=== PATIENT | female | born 1940 | race Caucasian/White ===

== ENCOUNTER 2022-02-05 16:00 | Emergency (ER) | payer OTHER ==
--- NOTE | 2022-02-05 17:11 | ER ---
Nurse's Notes [facility] Name: Kasia Auguste Age: 82 yrs Sex: Female : 1940 Arrival Date: 02/05/2022 Time: 16:09 Bed 12 Private MD: Diagnosis: Cat Bite Presentation: 02/05 16:19 Chief complaint: Patient states: I was bit on my first right toe. It happened jb4 yesterday. Coronavirus screen: At this time, the client does not indicate any symptoms associated with coronavirus-19. Ebola Screen: No symptoms or risks identified at this time. Initial Sepsis Screen: Does the patient meet any 2 criteria? No. Patient's initial sepsis screen is negative. Does the patient have a suspected source of infection? Yes: Skin breakdown/wound. Risk Assessment: Do you want to hurt yourself or someone else? Patient reports no desire to harm self or others. Onset of symptoms was February 04, 2022. Transition of care: patient was not received from another setting of care. 16:19 Method Of Arrival: Ambulatory jb4 16:19 Acuity: DARRICK 4 jb4 Triage Assessment: 16:22 Bite description: bite sustained to plantar aspect of left first toe and Left first jb4 toenail by a cat, animal information: vaccination(s) is current. Historical: - Allergies: 16:22 TETRACYCLINES; jb4 16:22 KAELA INHIBITORS; jb4 16:22 Bactrim; jb4 16:22 Augmentin; jb4 16:22 POTASSIUM CHLORIDE; jb4 - PMHx: 16:22 CVA; HTN; asthma; glaucoma; Arthritis; hiatal hernia; Osteoporosis; jb4 - PSHx: 16:22 sigmoid colon removed; jb4 - Immunization history:: Adult Immunizations up to date. - Social history:: Smoking status: Patient denies any tobacco usage or history of. Screenin:00 Abuse screen: Denies threats or abuse. Denies injuries from another. Nutritional iw screening: No deficits noted. Tuberculosis screening: No symptoms or risk factors identified. Fall Risk None identified. Assessment: 17:00 Reassessment: Patient appears in no apparent distress at this time. No changes from iw previously documented assessment. Patient and/or family updated on plan of care and expected duration. Pain level reassessed. Patient is alert, oriented x 3, equal unlabored respirations, skin warm/dry/pink. Vital Signs: 16:19 BP 148 / 85; Pulse 89; Resp 16; Temp 98.2(O); Pulse Ox 100% on R/A; Weight 59.87 kg jb4 (R); Height 5 ft. 3 in. (160.02 cm) (R); Pain 0/10; 16:19 Body Mass Index 23.38 (59.87 kg, 160.02 cm) jb4 ED Course: 16:09 Patient arrived in ED. ds1 16:19 Luis Ramírez PA is PHCP. iris 16:19 Vish Nunez MD is Attending Physician. [facility] 16:22 Triage completed. jb4 16:22 Arm band placed on right wrist. jb4 17:00 Leonora Turk, RN is Primary Nurse. iw Administered Medications: No medications were administered Outcome: 17:10 Discharge ordered by . jmm 17:15 Patient left the ED. iw Signatures: Luis Ramírez PA PA [facility] Lorrie Mann ds1 Leonora Turk, RN RN iw Shalom Irwin, DILAN RN jb4 Corrections: (The following items were deleted from the chart) 16:25 16:22 Allergies: No Known Allergies; jb4 jb4
--- NOTE | 2022-02-05 17:11 | EDPHYS ---
Physician Documentation [facility] Name: Kasia Auguste Age: 82 yrs Sex: Female : 1940 Arrival Date: 02/05/2022 Time: 16:09 Bed 12 Private MD: ED Physician Vish Nunez HPI: 02/05 16:34 This 82 yrs old Female presents to ER via Ambulatory with complaints of Cat Bite. [facility] 16:34 Onset: The symptoms/episode began/occurred acutely, 1 day(s) ago. Animal information: [facility] Animal's vaccinations are up to date. Patient states she was bit on her right foot by her cat. This has occurred multiple times. Denies fever. States she has been prescribed cipro in the past which has helped. . Historical: - Allergies: 16:22 TETRACYCLINES; jb4 16:22 KAELA INHIBITORS; jb4 16:22 Bactrim; jb4 16:22 Augmentin; jb4 16:22 POTASSIUM CHLORIDE; jb4 - PMHx: 16:22 CVA; HTN; asthma; glaucoma; Arthritis; hiatal hernia; Osteoporosis; jb4 - PSHx: 16:22 sigmoid colon removed; jb4 - Immunization history:: Adult Immunizations up to date. - Social history:: Smoking status: Patient denies any tobacco usage or history of. ROS: 16:34 Constitutional: Negative for fever, chills, and weight loss, Cardiovascular: Negative jmm for chest pain, palpitations, and edema, Respiratory: Negative for shortness of breath, cough, wheezing, and pleuritic chest pain. 16:34 Skin: Positive for puncture. bite. 16:34 All other systems are negative. Exam: 16:34 Constitutional: This is a well developed, well nourished patient who is awake, alert, jmm and in no acute distress. Head/Face: atraumatic. Eyes: EOMI, no conjunctival erythema appreciated ENT: Moist Mucus Membranes Neck: Trachea midline, Supple Chest/axilla: Normal chest wall appearance and motion. Cardiovascular: Regular rate and rhythm. No edema appreciated Respiratory: Normal respirations, no respiratory distress appreciated Abdomen/GI: Non distended, soft Back: Normal ROM 16:34 Skin: puncture noted to the right foot, no surrounding erythema or induration, no purulent drainage, . 16:34 Neuro: Orientation: is normal, Mentation: is normal, Memory: is normal. 16:34 Psych: Behavior/mood is pleasant, cooperative. Vital Signs: 16:19 BP 148 / 85; Pulse 89; Resp 16; Temp 98.2(O); Pulse Ox 100% on R/A; Weight 59.87 kg jb4 (R); Height 5 ft. 3 in. (160.02 cm) (R); Pain 0/10; 16:19 Body Mass Index 23.38 (59.87 kg, 160.02 cm) jb4 MDM: 16:31 [facility] 16:34 Data reviewed: vital signs, nurses notes. Counseling: I had a detailed discussion with [facility] the patient and/or guardian regarding: the historical points, exam findings, and any diagnostic results supporting the discharge/admit diagnosis, the need for outpatient follow up, to return to the emergency department if symptoms worsen or persist or if there are any questions or concerns that arise at home. ED course: Patient is alert and non toxic in appearance in the ED. No signs of sepsis. patient prescribed abx and given strict return precautions. . Administered Medications: No medications were administered Disposition Summary: 02/05/22 17:10 Discharge Ordered Location: Home [facility] Condition: Stable [facility] Diagnosis - Cat Bite [facility] Followup: [facility] - With: Private Physician - When: 1 - 2 days - Reason: Recheck today's complaints, Continuance of care, Re-evaluation by your physician Discharge Instructions: - Discharge Summary Sheet [facility] - Animal Bite, Adult [facility] Forms: - Medication Reconciliation Form [facility] - Thank You Letter [facility] - Antibiotic Education [facility] - Prescription Opioid Use [facility] Prescriptions: - Cipro 500 mg Oral Tablet - take 1 tablet by ORAL route every 12 hours for 10 days; 20 tablet; Refills: 0, [facility] Product Selection Permitted Signatures: Vish Nunez MD MD cha Mickail, Joel, PA PA jmm Bryson, James, RN RN jb4 Corrections: (The following items were deleted from the chart) 16:25 16:22 Allergies: No Known Allergies; jb4 jb4
[2022-02-05 17:20] VITALS: BP 148/85; TEMP 98.2; O2SAT 100
== END 2022-02-05 17:15 | disposition home or self-care (01) ==
LOC: ER 16:00
DX: S91.331A Puncture wound without foreign body, right foot, initial encounter (principal); W55.01XA Bitten by cat, initial encounter; I10 Essential (primary) hypertension; Z88.1 Allergy status to other antibiotic agents; Z88.3 Allergy status to other anti-infective agents; Z88.8 Allergy status to other drugs, medicaments and biological substances; Z86.73 Personal history of transient ischemic attack (TIA), and cerebral infarction without residual deficits
CPT/HCPCS: 99281

== ENCOUNTER 2022-02-07 20:34 | Emergency (ER) | payer OTHER ==
[2022-02-07] MEDS ORDERED: ONDANSETRON 4 MG/2 ML VIAL ONE (23:17)
[2022-02-07] MEDS ORDERED: METHYLPREDNISOLONE 40 MG INJ ONE (23:17)
[2022-02-07] MEDS ORDERED: MORPHINE 4 MG/ML SYR ONE (23:17)
--- NOTE | 2022-02-08 00:15 | EDPHYS ---
Physician Documentation [facility] Name: Kasia Auguste Age: 82 yrs Sex: Female : 1940 Arrival Date: 02/07/2022 Time: 20:38 Bed 7 Private MD: Tadeo Means C ED Physician Costa Knowles HPI: 02/07 21:58 This 82 yrs old Female presents to ER via Wheelchair with complaints of Back Pain. kdr 21:58 The patient presents with pain that is acute, that is chronic, and tenderness. The kdr symptoms are located in the left scapular area and thoracic area. Onset: The symptoms/episode began/occurred gradually, 3 week(s) ago. The pain does not radiate. Associated signs and symptoms: The patient has no apparent associated signs or symptoms. The problem was sustained from unknown cause. Modifying factors: The patient symptoms are alleviated by nothing, the patient symptoms are aggravated by any movement. Severity of symptoms: At their worst the symptoms were mild. The patient has experienced a previous episode. The patient has not recently seen a physician. Historical: - Allergies: 21:03 KAELA INHIBITORS; lg3 21:03 Augmentin; lg3 21:03 Bactrim; lg3 21:03 Potassium Chloride; lg3 21:03 TETRACYCLINES; lg3 - Home Meds: 21:03 Norvasc 10 mg oral tab once daily [Active]; Cozaar 100 mg Oral tab once daily [Active]; lg3 hydrochlorothiazide 12.5 mg Oral cap once daily [Active]; aspirin 81 mg Oral chew once daily [Active]; Crestor 20 mg oral tab 1 tab once daily [Active]; Plavix 75 mg Oral tab 1 tab once daily [Active]; Advair Diskus 250-50 mcg/dose Inhl dsdv 1 puff 2 times per day [Active]; proair 90 Mcg 2 puffs as needed [Active]; azelastine .15% 205.5 mcg twice a day [Active]; loratadine 10 mg oral tab 1 tab once daily [Active]; rabeprazole 20 mg oral TbEC 1 tab once daily [Active]; prolia 1 injection every 6 months [Active]; brinzolamide opth drops [Active]; Tirosint 25 mcg oral cap 1 cap once daily [Active]; tizanidine 4 mg oral cap 1 cap daily [Active]; escitalopram oxalate 10 mg oral tab 1 tab once daily [Active]; folic acid 1 mg Oral tab [Active]; hydroxyzine HCl 25 mg Oral tab as needed [Active]; - PMHx: 21:03 Arthritis; Asthma; CVA; Glaucoma; hiatal hernia; HTN; Osteoporosis; lg3 - PSHx: 21:03 sigmoid colon removed; hysterectomy; Cholecystectomy; Appendectomy; lg3 - Immunization history:: Adult Immunizations up to date, Client reports receiving the 2nd dose of the Covid vaccine, moderna X3. - Social history:: Smoking status: Patient denies any tobacco usage or history of. Patient/guardian denies using alcohol. ROS: 21:58 Constitutional: Negative for fever, chills, and weight loss, Eyes: Negative for injury, kdr pain, redness, and discharge, Neck: Negative for injury, pain, and swelling, Cardiovascular: Negative for chest pain, palpitations, and edema, Respiratory: Negative for shortness of breath, cough, wheezing, and pleuritic chest pain, Abdomen/GI: Negative for abdominal pain, nausea, vomiting, diarrhea, and constipation, : Negative for injury, bleeding, discharge, and swelling, MS/Extremity: Negative for injury and deformity, Skin: Negative for injury, rash, and discoloration, Neuro: Negative for headache, weakness, numbness, tingling, and seizure activity. Psych: Negative for depression, anxiety, suicide ideation, homicidal ideation, and hallucinations, Allergy/Immunology: Negative for hives, rash, and allergies, Endocrine: Negative for neck swelling, polydipsia, polyuria, polyphagia, and marked weight changes, Hematologic/Lymphatic: Negative for swollen nodes, abnormal bleeding, and unusual bruising. 21:58 Back: Positive for pain at rest, pain with movement. Exam: 21:58 Constitutional: This is a well developed, well nourished patient who is awake, alert, kdr and in no acute distress. Head/Face: Normocephalic, atraumatic. Neck: Trachea midline, no thyromegaly or masses palpated, and no cervical lymphadenopathy. Supple, full range of motion without nuchal rigidity, or vertebral point tenderness. No Meningismus. Chest/axilla: Normal chest wall appearance and motion. Nontender with no deformity. No lesions are appreciated. Cardiovascular: Regular rate and rhythm with a normal S1 and S2. No gallops, murmurs, or rubs. Normal PMI, no JVD. No pulse deficits. Respiratory: Lungs have equal breath sounds bilaterally, clear to auscultation and percussion. No rales, rhonchi or wheezes noted. No increased work of breathing, no retractions or nasal flaring. Abdomen/GI: Soft, non-tender, with normal bowel sounds. No distension or tympany. No guarding or rebound. No evidence of tenderness throughout. Skin: Warm, dry with normal turgor. Normal color with no rashes, no lesions, and no evidence of cellulitis. MS/ Extremity: Pulses equal, no cyanosis. Neurovascular intact. Full, normal range of motion. Neuro: Awake and alert, GCS 15, oriented to person, place, time, and situation. Cranial nerves II-XII grossly intact. Motor strength 5/5 in all extremities. Sensory grossly intact. Cerebellar exam normal. Normal gait. Psych: Awake, alert, with orientation to person, place and time. Behavior, mood, and affect are within normal limits. 21:58 Back: pain, that is very mild, of the left scapular area, left subscapular area and thoracic area, ROM is painful, with all movement, normal spinal alignment noted, CVA tenderness, is absent, vertebral tenderness, is not appreciated. Vital Signs: 21:01 BP 154 / 79; Pulse 92; Resp 17 S; Temp 97.7(O); Pulse Ox 99% on R/A; Weight 59.87 kg lg3 (R); Height 5 ft. 3 in. (160.02 cm) (R); Pain 10/10; 23:20 BP 142 / 77; Pulse 86; Resp 16; Pulse Ox 95% on R/A; Pain 8/10; lp1 02/08 00:00 BP 104 / 58; Pulse 86; Resp 16; Pulse Ox 95% on R/A; lp1 00:50 BP 128 / 75; Pulse 88; Resp 18; Pulse Ox 95% on R/A; Pain 3/10; lp1 02/07 21:01 Body Mass Index 23.38 (59.87 kg, 160.02 cm) lg3 MDM: 02/07 21:58 Data reviewed: vital signs, nurses notes, lab test result(s), radiologic studies. kdr Counseling: I had a detailed discussion with the patient and/or guardian regarding: the historical points, exam findings, and any diagnostic results supporting the discharge/admit diagnosis, lab results, radiology results. 02/08 00:14 Patient medically screened. kdr 02/07 21:56 Order name: CT Thoracic Spine Wo Cont vc1 Administered Medications: 02/07 23:25 Drug: morphine 4 mg Route: IVP; Site: right hand; lp1 02/08 00:30 Follow up: Response: Pain is decreased lp1 02/07 23:25 Drug: Zofran (Ondansetron) 4 mg Route: IVP; Site: right hand; lp1 02/08 00:35 Follow up: Response: No adverse reaction lp1 02/07 23:25 Drug: SOLU-Medrol (methylPrednisoLONE) 80 mg Route: IVP; Site: right hand; lp1 02/08 00:35 Follow up: Response: No adverse reaction lp1 00:50 Drug: [place] (HYDROcodone-acetaminophen) 5 mg-325 mg 1 tabs Route: PO; lp1 01:06 Follow up: Response: Medication administered at discharge. lp1 Disposition Summary: 02/08/22 00:14 Discharge Ordered Location: Home kdr Problem: new kdr Symptoms: have improved kdr Condition: Stable kdr Diagnosis - Upper (Throacic) Back Pain kdr - Degenerative Spine Changes kdr Followup: kdr - With: Tadeo Means MD - When: 1 - 2 days - Reason: If symptoms return, Further diagnostic work-up, Recheck today's complaints, Continuance of care, Re-evaluation by your physician Discharge Instructions: - Discharge Summary Sheet kdr - Acute Back Pain, Adult kdr Forms: - Medication Reconciliation Form kdr - Thank You Letter kdr Prescriptions: - Prednisone 20 mg Oral Tablet - take 1 tablet by ORAL route once daily for 3 days; 3 tablet; Refills: 0, kdr Product Selection Permitted - Cyclobenzaprine 5 mg Oral Tablet - take 1 tablet by ORAL route 3 times per day As needed; 9 tablet; Refills: 0, kdr Product Selection Permitted - Zofran 4 mg Oral Tablet - take 1 tablet by ORAL route every 4-6 hours As needed; 12 tablet; Refills: 0, kdr Product Selection Permitted Signatures: Dispatcher [employer] Costa Chauhan MD MD kdr Saritha Melendez, RN RN lp1 Sally Almazan, DILAN RN lg3
--- NOTE | 2022-02-08 00:15 | ER ---
Nurse's Notes [facility] Name: Kasia Auguste Age: 82 yrs Sex: Female : 1940 Arrival Date: 02/07/2022 Time: 20:38 Bed 7 Private MD: Tadeo Means C Diagnosis: Upper (Throacic) Back Pain;Degenerative Spine Changes Presentation: 02/07 21:01 Chief complaint: Patient states: left sided back and shoulder pain. I was moving a box lg3 last week and that is when the pain started and gradually getting worse. Coronavirus screen: Client denies travel out of the [place] in the last 14 days. At this time, the client does not indicate any symptoms associated with coronavirus-19. Ebola Screen: No symptoms or risks identified at this time. Initial Sepsis Screen: Does the patient meet any 2 criteria? No. Patient's initial sepsis screen is negative. Does the patient have a suspected source of infection? No. Patient's initial sepsis screen is negative. Risk Assessment: Do you want to hurt yourself or someone else? Patient reports no desire to harm self or others. Onset of symptoms is unknown. 21:01 Method Of Arrival: Wheelchair lg3 21:01 Acuity: DARRICK 3 lg3 Triage Assessment: 21:03 General: Appears in no apparent distress. uncomfortable, Behavior is calm, cooperative. lg3 Pain: Complains of pain in back and left shoulder. EENT: No deficits noted. No signs and/or symptoms were reported regarding the EENT system. Neuro: No deficits noted. Level of Consciousness is awake, alert, obeys commands, Oriented to person, place, time, situation. Cardiovascular: No deficits noted. Denies chest pain, shortness of breath. Respiratory: No deficits noted. Airway is patent Trachea midline Respiratory effort is even, unlabored, Respiratory pattern is regular, symmetrical. GI: No deficits noted. No signs and/or symptoms were reported involving the gastrointestinal system. : No deficits noted. No signs and/or symptoms were reported regarding the genitourinary system. Derm: No deficits noted. No signs and/or symptoms reported regarding the dermatologic system. Skin is intact, is thin, Skin is dry. Musculoskeletal: Range of motion: limited in left shoulder. Historical: - Allergies: 21:03 KAELA INHIBITORS; lg3 21:03 Augmentin; lg3 21:03 Bactrim; lg3 21:03 Potassium Chloride; lg3 21:03 TETRACYCLINES; lg3 - Home Meds: 21:03 Norvasc 10 mg oral tab once daily [Active]; Cozaar 100 mg Oral tab once daily [Active]; lg3 hydrochlorothiazide 12.5 mg Oral cap once daily [Active]; aspirin 81 mg Oral chew once daily [Active]; Crestor 20 mg oral tab 1 tab once daily [Active]; Plavix 75 mg Oral tab 1 tab once daily [Active]; Advair Diskus 250-50 mcg/dose Inhl dsdv 1 puff 2 times per day [Active]; proair 90 Mcg 2 puffs as needed [Active]; azelastine .15% 205.5 mcg twice a day [Active]; loratadine 10 mg oral tab 1 tab once daily [Active]; rabeprazole 20 mg oral TbEC 1 tab once daily [Active]; prolia 1 injection every 6 months [Active]; brinzolamide opth drops [Active]; Tirosint 25 mcg oral cap 1 cap once daily [Active]; tizanidine 4 mg oral cap 1 cap daily [Active]; escitalopram oxalate 10 mg oral tab 1 tab once daily [Active]; folic acid 1 mg Oral tab [Active]; hydroxyzine HCl 25 mg Oral tab as needed [Active]; - PMHx: 21:03 Arthritis; Asthma; CVA; Glaucoma; hiatal hernia; HTN; Osteoporosis; lg3 - PSHx: 21:03 sigmoid colon removed; hysterectomy; Cholecystectomy; Appendectomy; lg3 - Immunization history:: Adult Immunizations up to date, Client reports receiving the 2nd dose of the Covid vaccine, moderna X3. - Social history:: Smoking status: Patient denies any tobacco usage or history of. Patient/guardian denies using alcohol. Screenin:36 Abuse screen: Denies threats or abuse. Nutritional screening: No deficits noted. ll3 Tuberculosis screening: No symptoms or risk factors identified. 02/08 00:30 Fall Risk Total Sparks Fall Scale indicates High Risk Score (45 or more points). Fall lp1 prevention measures have been instituted. Side Rails Up X 2 As available patient and family educated on Fall Prevention Program and Strategies. Assessment: 02/07 21:36 General: Appears uncomfortable, Behavior is calm, cooperative. Pain: Complains of pain ll3 in left shoulder Pain does not radiate. Pain currently is 10 out of 10 on a pain scale. Pain began 2-3 days ago. Is continuous, Alleviated by repositioning, Aggravated by repositioning, Taking a deep breath. Neuro: Level of Consciousness is awake, alert, obeys commands, Oriented to person, place, time, situation. Cardiovascular: Clubbing of nail beds. Respiratory: Respiratory effort is even, unlabored, Respiratory pattern is regular, symmetrical. Derm: Skin is pink, warm \T\ dry. Musculoskeletal: Circulation, motion, and sensation intact. 23:00 Reassessment: No changes from previously documented assessment. Patient and/or family ll3 updated on plan of care and expected duration. Pain level reassessed. Patient is alert, oriented x 3, equal unlabored respirations, skin warm/dry/pink. Pain is 10/10, ERP notified. 02/08 00:30 Reassessment: Patient reports pain decreased to left posterior back, reports pain lp1 provoked with movement; Appears comfortable at this time, daughter at bedside. Vital Signs: 02/07 21:01 BP 154 / 79; Pulse 92; Resp 17 S; Temp 97.7(O); Pulse Ox 99% on R/A; Weight 59.87 kg lg3 (R); Height 5 ft. 3 in. (160.02 cm) (R); Pain 10/10; 23:20 BP 142 / 77; Pulse 86; Resp 16; Pulse Ox 95% on R/A; Pain 8/10; lp1 02/08 00:00 BP 104 / 58; Pulse 86; Resp 16; Pulse Ox 95% on R/A; lp1 00:50 BP 128 / 75; Pulse 88; Resp 18; Pulse Ox 95% on R/A; Pain 3/10; lp1 02/07 21:01 Body Mass Index 23.38 (59.87 kg, 160.02 cm) lg3 ED Course: 02/07 20:38 Patient arrived in ED. mr 20:38 Tadeo Means MD is Private Physician. mr 21:03 Triage completed. lg3 21:03 Arm band placed on right wrist. lg3 21:17 Costa Knowles MD is Attending Physician. kdr 21:36 Patient has correct armband on for positive identification. Bed in low position. Call ll3 light in reach. Side rails up X 1. 22:37 CT Thoracic Spine Wo Cont In Process Unspecified. EDMS 23:25 Inserted saline lock: 22 gauge in right hand, using aseptic technique. lp1 02/08 00:13 Tadeo Means MD is Referral Physician. kdr 00:36 Nury Chang, DILAN is Primary Nurse. ll3 00:55 No provider procedures requiring assistance completed. IV discontinued, No lp1 redness/swelling at site. Pressure dressing applied. Administered Medications: 02/07 23:25 Drug: morphine 4 mg Route: IVP; Site: right hand; lp1 02/08 00:30 Follow up: Response: Pain is decreased lp1 02/07 23:25 Drug: Zofran (Ondansetron) 4 mg Route: IVP; Site: right hand; lp1 02/08 00:35 Follow up: Response: No adverse reaction lp1 02/07 23:25 Drug: SOLU-Medrol (methylPrednisoLONE) 80 mg Route: IVP; Site: right hand; lp1 02/08 00:35 Follow up: Response: No adverse reaction lp1 00:50 Drug: [place] (HYDROcodone-acetaminophen) 5 mg-325 mg 1 tabs Route: PO; lp1 01:06 Follow up: Response: Medication administered at discharge. lp1 Outcome: 00:14 Discharge ordered by . kdr 01:07 Discharged to home via wheelchair, with family. lp1 01:07 Condition: good 01:07 Discharge instructions given to patient, Instructed on discharge instructions, follow up and referral plans. medication usage, Demonstrated understanding of instructions, follow-up care, medications, Prescriptions given X 3. 01:07 Patient left the ED. lp1 Signatures: Dispatcher [employer] EDMS Costa Knowles MD MD kdr RestrepoCallie mr Saritha Melendez RN RN lp1 Sally Almazan RN RN lg3 Nury Chang, DILAN RN ll3 Corrections: (The following items were deleted from the chart) 00:36 00:36 Reassessment: Patient and/or family updated on plan of care and expected ll3 duration. Pain level reassessed. Patient is alert, oriented x 3, equal unlabored respirations, skin warm/dry/pink. Patient states feeling better. ll3
[2022-02-08] MEDS ORDERED: HYDROCODONE/APAP 5/325 MG TAB ONE ×2 (00:29→00:42)
[2022-02-08 01:12] VITALS: TEMP 97.7
[2022-02-08 01:14] VITALS: O2SAT 95
[2022-02-08 01:17] VITALS: BP 128/75
--- NOTE | 2022-02-08 13:50 | RAD REPORT ---
EXAM DESCRIPTION: CT - Thoracic Spine W/o Cont - 02/08/2022 7:17 am CLINICAL HISTORY: Mid-back pain. TECHNIQUE: CT of the thoracic spine was performed without contrast. Axial 3 mm bone and soft tissue window, sagittal 2 mm bone and soft tissue window, and coronal 2 mm bone window reconstructions were created and sent to PACS. This exam was performed according to our departmental dose-optimization program which includes use of Automated Exposure Control, adjustment of the mA and/or kV according to patient size and/or use of i terative reconstruction technique. COMPARISON: None. FINDINGS: No acute osseous abnormality identified. There is moderate vertebral body height loss at L 1 with no acute features identified. There is mild bony retropulsion with no significant central missy l narrowing. Vertebral body alignment is maintained. No significant central canal or neuroforaminal n arrowing. Osteopenia. Small multilevel anterior osteophytes. Partial anterior disc calcification at T 8-9. Mild vacuum disc phenomenon anteriorly at T7-8 Paraspinal soft tissues: Mild pulmonary biapical fibrosis. Partially calcified nodule at the right ap ex. Moderate calcific atherosclerosis. IMPRESSION: 1. No acute osseous abnormality identified in the thoracic spine. Mild degenerative ch anges. 2. Chronic moderate compression fracture at L1. Mild bony retropulsion with no significant central canal narrowing. 3. Osteopenia. Electronically signed by: Tierra Rosado MD 02/07/2022 10:59 PM CDT Due to temporary technical issues with the PACS/Fluency reporting system, reports are being signed by the in house radiologists without review as a courtesy to insure prompt reporting. The interpreting radiologist is fully responsible for the content of the report
== END 2022-02-08 01:07 | disposition home or self-care (01) ==
LOC: ER 20:34
DX: M54.6 Pain in thoracic spine (principal); M47.894 Other spondylosis, thoracic region; Z88.1 Allergy status to other antibiotic agents; I10 Essential (primary) hypertension; J45.909 Unspecified asthma, uncomplicated; M81.0 Age-related osteoporosis without current pathological fracture
CPT/HCPCS: 72128; 96375; 96374; 99284; J2405; J2920

== ENCOUNTER 2022-08-02 13:40 | Emergency (ER) | payer OTHER ==
--- NOTE | 2022-08-02 14:40 | EDPHYS ---
Physician Documentation [facility] Name: Kasia Auguste Age: 82 yrs Sex: Female : 1940 Arrival Date: 08/02/2022 Time: 13:42 Bed 9 Private MD: ED Physician Audrey Leblanc HPI: 08/02 14:59 This 82 yrs old Female presents to ER via Ambulatory with complaints of Cat Bite. snw 14:59 The patient was bitten on the dorsal aspect of right forearm and left posterior calf. snw Onset: The symptoms/episode began/occurred suddenly, 1 day(s) ago, and became persistent. Animal information: The animal is known and can be quarantined. Secondary to the bite the patient reports a laceration, multiple puncture wounds. Associated signs and symptoms: The patient has no apparent associated signs or symptoms. Severity of symptoms: At their worst the symptoms were moderate. The patient has experienced a previous episode. It is unknown whether or not the patient has recently seen a physician. Historical: - Allergies: 14:23 KAELA INHIBITORS; vg1 14:23 Augmentin; vg1 14:23 Bactrim; vg1 14:23 TETRACYCLINES; vg1 14:23 Potassium Chloride; vg1 - Home Meds: 14:23 aspirin 81 mg Oral chew once daily [Active]; Plavix 75 mg Oral tab 1 tab once daily vg1 [Active]; Cozaar 100 mg Oral tab once daily [Active]; Crestor 20 mg Oral tab 1 tab once daily [Active]; proair 90 mcg 2 puffs as needed [Active]; hydroxyzine HCl 25 mg Oral tab as needed [Active]; folic acid 1 mg Oral tab [Active]; tizanidine 4 mg Oral cap 1 cap daily [Active]; Norvasc 10 mg Oral tab once daily [Active]; loratadine 10 mg Oral tab 1 tab once daily [Active]; escitalopram oxalate 10 mg Oral tab 1 tab once daily [Active]; - PMHx: 14:23 Arthritis; Asthma; CVA; Glaucoma; hiatal hernia; HTN; Osteoporosis; vg1 - Immunization history:: Client reports receiving the 2nd dose of the Covid vaccine. - Social history:: Smoking status: Patient denies any tobacco usage or history of. ROS: 14:55 Constitutional: Negative for fever, chills, and weight loss, Eyes: Negative for injury, snw pain, redness, and discharge, ENT: Negative for injury, pain, and discharge, Neck: Negative for injury, pain, and swelling, Cardiovascular: Negative for chest pain, palpitations, and edema, Respiratory: Negative for shortness of breath, cough, wheezing, and pleuritic chest pain, Abdomen/GI: Negative for abdominal pain, nausea, vomiting, diarrhea, and constipation, Back: Negative for injury and pain, : Negative for injury, bleeding, discharge, and swelling, MS/Extremity: Negative for injury and deformity, Neuro: Negative for headache, weakness, numbness, tingling, and seizure, Psych: Negative for depression, anxiety, suicide ideation, homicidal ideation, and hallucinations. 14:55 Skin: Positive for laceration(s), of the dorsal aspect of right forearm, from cat bite, also bitten on left posterior calf. Exam: 14:56 Constitutional: This is a well developed, well nourished patient who is awake, alert, snw and in no acute distress. Head/Face: Normocephalic, atraumatic. Eyes: Pupils equal round and reactive to light, extra-ocular motions intact. Lids and lashes normal. Conjunctiva and sclera are non-icteric and not injected. Cornea within normal limits. Periorbital areas with no swelling, redness, or edema. ENT: Nares patent. No nasal discharge, no septal abnormalities noted. Tympanic membranes are normal and external auditory canals are clear. Oropharynx with no redness, swelling, or masses, exudates, or evidence of obstruction, uvula midline. Mucous membranes moist. Neck: Trachea midline, no thyromegaly or masses palpated, and no cervical lymphadenopathy. Supple, full range of motion without nuchal rigidity, or vertebral point tenderness. No Meningismus. Chest/axilla: Normal chest wall appearance and motion. Nontender with no deformity. No lesions are appreciated. Cardiovascular: Regular rate and rhythm with a normal S1 and S2. No gallops, murmurs, or rubs. Normal PMI, no JVD. No pulse deficits. Respiratory: Lungs have equal breath sounds bilaterally, clear to auscultation and percussion. No rales, rhonchi or wheezes noted. No increased work of breathing, no retractions or nasal flaring. Abdomen/GI: Soft, non-tender, with normal bowel sounds. No distension or tympany. No guarding or rebound. No evidence of tenderness throughout. Back: No spinal tenderness. No costovertebral tenderness. Full range of motion. MS/ Extremity: Pulses equal, no cyanosis. Neurovascular intact. Full, normal range of motion. Neuro: Awake and alert, GCS 15, oriented to person, place, time, and situation. Cranial nerves II-XII grossly intact. Motor strength 5/5 in all extremities. Sensory grossly intact. Cerebellar exam normal. Normal gait. 14:56 Skin: Appearance: normal except for affected area, injury, bite(s), deep, of the dorsal aspect of right forearm, laceration(s), the wound is approximately 2 cm(s), with a depth of 1 cm(s), of the dorsal aspect of right forearm, that can be described as skin tear, puncture(s), that are deep, of the left posterior calf with 4 punctures from pt's cat. Vital Signs: 14:21 BP 151 / 80; Pulse 88; Resp 16; Temp 98.4(O); Pulse Ox 98% on R/A; Weight 59.42 kg; vg1 Height 5 ft. 3 in. (160.02 cm); Pain 0/10; 14:21 Body Mass Index 23.21 (59.42 kg, 160.02 cm) vg1 MDM: 14:33 Patient medically screened. snw 14:58 Data reviewed: vital signs, nurses notes. Data interpreted: Pulse oximetry: on room air snw is 98 %. Interpretation: normal. Counseling: I had a detailed discussion with the patient and/or guardian regarding: the historical points, exam findings, and any diagnostic results supporting the discharge/admit diagnosis, the presence of at least one elevated blood pressure reading (>120/80) during this emergency department visit, the need for outpatient follow up, to return to the emergency department if symptoms worsen or persist or if there are any questions or concerns that arise at home. Special discussion: I discussed in detail with the patient the higher chance of wound infection based on his presenting history. Based on the history and exam findings, there is no indication for further emergent testing or inpatient evaluation. I discussed with the patient/guardian the need to see the primary care provider for further evaluation of the symptoms. Administered Medications: 14:50 Drug: Hibiclens (chlorhexidine) Liquid 4 % 1 application Route: Topical; Site: affected vg1 area; 14:57 Drug: Tetanus-Diphtheria Toxoid Adult 0.5 ml {Vulcanizer Rubber Plate: [employer]Generator. Exp: vg1 03/05/2024. Lot #: [id number]. } Route: IM; Site: left deltoid; 14:58 Drug: Cipro (ciprofloxacin) 500 mg Route: PO; vg1 Disposition Summary: 08/02/22 14:40 Discharge Ordered Location: Home snw Condition: Stable snw Diagnosis - Bitten by cat snw Followup: snw - With: Emergency Department - When: As needed - Reason: Worsening of condition Followup: snw - With: Private Physician - When: 2 - 3 days - Reason: Recheck today's complaints, Continuance of care, Re-evaluation by your physician Discharge Instructions: - Discharge Summary Sheet snw - Delayed Wound Closure snw - Animal Bite, Adult snw Forms: - Medication Reconciliation Form snw - Thank You Letter snw - Antibiotic Education snw - Prescription Opioid Use snw Prescriptions: - Cipro 500 mg Oral Tablet - take 1 tablet by ORAL route every 12 hours for 7 days Catbite; 14 tablet; snw Refills: 0, Product Selection Permitted Addendum: 08/05/2022 03:28 STAFF ATTESTATION STATEMENT: I was immediately available onsite in the emergency s d2 department for consultation in the care of this patient. I did not see or examine this patient. Audrey Leblanc MD. Signatures: Oxana Sharp FNP-C FNP-Nolviaw Vanessa Leavitt RN RN vg1 Audrey Leblanc MD MD sd2
--- NOTE | 2022-08-02 14:40 | ER ---
Nurse's Notes [facility] Name: Kasia Auguste Age: 82 yrs Sex: Female : 1940 Arrival Date: 08/02/2022 Time: 13:42 Bed 9 Private MD: Diagnosis: Bitten by cat Presentation: 08/02 14:21 Chief complaint: Patient states: yesterday was bitten by own cat on Left calf and Right vg1 forearm. Coronavirus screen: Vaccine status: Patient reports receiving the 2nd dose of the covid vaccine. Client denies travel out of the [place] in the last 14 days. Ebola Screen: Patient negative for fever greater than or equal to 101.5 degrees Fahrenheit, and additional compatible Ebola Virus Disease symptoms Patient denies exposure to infectious person. Initial Sepsis Screen: Does the patient meet any 2 criteria? No. Patient's initial sepsis screen is negative. Does the patient have a suspected source of infection? No. Patient's initial sepsis screen is negative. Risk Assessment: Do you want to hurt yourself or someone else? Patient reports no desire to harm self or others. Onset of symptoms was August 01, 2022. 14:21 Method Of Arrival: Ambulatory vg1 14:21 Acuity: DARRICK 3 vg1 Triage Assessment: 14:23 Bite description: bite sustained to dorsal aspect of right forearm and Left calf by a vg1 cat, animal information: vaccination(s) is current, Animal status: known, own animal. General: Appears in no apparent distress. comfortable, Behavior is calm, cooperative. Pain: Denies pain. Derm: Bruising that is dark purple, on Right forearm and left calf. Historical: - Allergies: 14:23 KAELA INHIBITORS; vg1 14:23 Augmentin; vg1 14:23 Bactrim; vg1 14:23 TETRACYCLINES; vg1 14:23 Potassium Chloride; vg1 - Home Meds: 14:23 aspirin 81 mg Oral chew once daily [Active]; Plavix 75 mg Oral tab 1 tab once daily vg1 [Active]; Cozaar 100 mg Oral tab once daily [Active]; Crestor 20 mg Oral tab 1 tab once daily [Active]; proair 90 mcg 2 puffs as needed [Active]; hydroxyzine HCl 25 mg Oral tab as needed [Active]; folic acid 1 mg Oral tab [Active]; tizanidine 4 mg Oral cap 1 cap daily [Active]; Norvasc 10 mg Oral tab once daily [Active]; loratadine 10 mg Oral tab 1 tab once daily [Active]; escitalopram oxalate 10 mg Oral tab 1 tab once daily [Active]; - PMHx: 14:23 Arthritis; Asthma; CVA; Glaucoma; hiatal hernia; HTN; Osteoporosis; vg1 - Immunization history:: Client reports receiving the 2nd dose of the Covid vaccine. - Social history:: Smoking status: Patient denies any tobacco usage or history of. Screenin:03 Abuse screen: Denies threats or abuse. Nutritional screening: No deficits noted. vg1 Tuberculosis screening: No symptoms or risk factors identified. Fall Risk None identified. Assessment: 14:31 Reassessment: animal control contacted spoke with Nicole. vg1 15:18 Reassessment: Case # [id number]; Officer Venkata. vg1 Vital Signs: 14:21 BP 151 / 80; Pulse 88; Resp 16; Temp 98.4(O); Pulse Ox 98% on R/A; Weight 59.42 kg; vg1 Height 5 ft. 3 in. (160.02 cm); Pain 0/10; 14:21 Body Mass Index 23.21 (59.42 kg, 160.02 cm) vg1 ED Course: 13:42 Patient arrived in ED. as 14:14 [facility] snw 14:14 Audrey Leblanc MD is Attending Physician. snw 14:23 Triage completed. vg1 14:23 Arm band placed on right wrist. vg1 15:03 Patient has correct armband on for positive identification. Bed in low position. Call vg1 light in reach. 15:03 No provider procedures requiring assistance completed. Patient did not have IV access vg1 during this emergency room visit. Administered Medications: 14:50 Drug: Hibiclens (chlorhexidine) Liquid 4 % 1 application Route: Topical; Site: affected vg1 area; 14:57 Drug: Tetanus-Diphtheria Toxoid Adult 0.5 ml {Stitch Welder: [employer]. Exp: vg1 03/05/2024. Lot #: [id number]. } Route: IM; Site: left deltoid; 14:58 Drug: Cipro (ciprofloxacin) 500 mg Route: PO; vg1 Medication: 15:04 VIS not applicable for this client. Vaccine Information Statement (VIS) provided today. vg1 Questions and/or concerns addressed. VIS edition date: May 22, 2021. Outcome: 14:40 Discharge ordered by . michael 15:03 Discharged to home ambulatory. vg1 15:03 Condition: good 15:03 Discharge instructions given to patient, Instructed on discharge instructions, follow up and referral plans. medication usage, wound care, Demonstrated understanding of instructions, follow-up care, medications, wound care, Prescriptions given X 1. 15:04 Patient left the ED. vg1 Signatures: Oxana Sharp, LIGHTER CAPTAIN-C LIGHTER CAPTAIN-Csnw Gabriela Degroot Victoria, RN RN vg1
[2022-08-02] MEDS ORDERED: TETANUS & DIPHTHERIA TOX,ADULT 0.5 ML VIAL ONE (14:49)
[2022-08-02] MEDS ORDERED: CIPROFLOXACIN HCL 500 MG TAB ONE (14:49)
[2022-08-02 15:10] VITALS: BP 151/80; TEMP 98.4; O2SAT 98
== END 2022-08-02 15:04 | disposition home or self-care (01) ==
LOC: ER 13:40
DX: S51.851A Open bite of right forearm, initial encounter (principal); W55.01XA Bitten by cat, initial encounter; Y93.9 Activity, unspecified; Y92.019 Unspecified place in single-family (private) house as the place of occurrence of the external cause; Z23 Encounter for immunization
CPT/HCPCS: 90471; 90714; 99283

== ENCOUNTER 2022-09-03 12:13 | Inpatient (IN) | payer OTHER ==
[2022-09-03 14:20] LABS: SARS-COV-2 RT PCR NEGATIVE (NEGATIVE)
[2022-09-03] MEDS ORDERED: NA CHLORIDE 0.9% 1,000 ML ONE ×2 (15:38→18:58)
[2022-09-03 15:52] LABS: Absolute Lymphocytes (CBC) 0.6 K/uL (0.7-4.9); Hematocrit 36.4 % (36.0-45.0); Lymphocytes % 12.5 % (15.3-44.8); MPV 8.7 fL (7.6-11.3); RBC Red Blood Cell Count 4.18 M/uL (3.86-4.86)
[2022-09-03 16:24] LABS: Albumin 4.1 g/dL (3.4-5.0); Bilirubin Total 0.4 mg/dL (0.2-1.0); Protein, Total 8.1 g/dL (6.4-8.2)
[2022-09-03 16:27] LABS: Potassium 3.9 mmol/L (3.5-5.1)
[2022-09-03 16:52] LABS: Urine Blood Trace-intact (Negative); Urine Glucose Negative (Negative); Urine Protein Negative (Negative); Urine Specific Gravity 1.015 (1.005-1.030)
--- NOTE | 2022-09-03 17:14 | RAD REPORT ---
EXAM DESCRIPTION: CTAbdomen Pelvis W Contrast - 09/03/2022 4:54 pm CLINICAL HISTORY: Abdominal pain, acute, nonlocalized COMPARISON: No comparisons TECHNIQUE: CT of the abdomen and pelvis was performed. All CT scans are performed using dose optimization technique as appropriate and may include automated exposure control or mA/KV adjustment according to patient size. FINDINGS: Lower chest: Mitral annular calcifications. Coronary artery calcifications. Liver: Low-density lesion at the hepatic dome with coarse calcification is almost certainly benign. L ow-density lesion left hepatic lobe was also likely benign. Biliary: Cholecystectomy. Stomach: No significant focal abnormality. Duodenum: No significant focal abnormality. Pancreas: No significant abnormality. Spleen: No significant abnormality. Adrenal: No suspicious lesions. Kidney/ureter: No hydronephrosis. Nonobstructing 3 mm stone in lower pole left kidney. Retroperitoneum: No retroperitoneal adenopathy. Vascular: No aneurysm. Atherosclerosis. Bowel: Fluid distended small bowel in the central and left hemiabdomen. Smooth transition to nondiste nded distal small bowel. Small air-fluid levels noted. Small bowel measures up to 2.8 cm.. The colon is decompressed. Partial colectomy. Peritoneum: Small amount free fluid. Bladder: Grossly unremarkable. Reproductive: No adnexal masses. Bones: No acute fracture. Remote appearing L1 compression fracture . Other: n/a IMPRESSION: Nonspecific distended small bowel in the central and left hemiabdomen. The transition po int to nondistended small bowel is smooth. No obstructing mass. This could represent a partial bowel obstruction, early high-grade bowel obstruction, or enteritis.
--- NOTE | 2022-09-03 18:54 | ER ---
Nurse's Notes [facility] Name: Kasia Auguste Age: 82 yrs Sex: Female : 1940 Arrival Date: 09/03/2022 Time: 12:16 Bed 25 Private MD: Tadeo Means C Diagnosis: Other viral enteritis Presentation: 09/03 13:14 Chief complaint: Patient states: Sore throat that began on 08/29. Pt reports that her ss throat no longer hurts, but now she is having diarrhea. Denies N/V. Coronavirus screen: Client denies travel out of the [place] in the last 14 days. Ebola Screen: Patient denies exposure to infectious person. Patient denies travel to an Ebola-affected area in the 21 days before illness onset. Initial Sepsis Screen: Does the patient meet any 2 criteria? No. Patient's initial sepsis screen is negative. Does the patient have a suspected source of infection? No. Patient's initial sepsis screen is negative. Risk Assessment: Do you want to hurt yourself or someone else? Patient reports no desire to harm self or others. Onset of symptoms was September 28, 2022. 13:14 Method Of Arrival: Ambulatory ss 13:14 Acuity: DARRICK 3 ss Historical: - Allergies: 13:16 KAELA INHIBITORS; ss 13:16 Augmentin; ss 13:16 Bactrim; ss 13:16 Potassium Chloride; ss 13:16 TETRACYCLINES; ss - PMHx: 13:16 Arthritis; hiatal hernia; Glaucoma; Osteoporosis; HTN; CVA; Asthma; ss - PSHx: 13:16 Appendectomy; Cholecystectomy; hysterectomy; sigmoid colon removed; ss - Immunization history:: Client reports receiving the 2nd dose of the Covid vaccine, Flu vaccine is up to date. - Social history:: Smoking status: Patient denies any tobacco usage or history of. Screenin:10 Abuse screen: Denies threats or abuse. Denies injuries from another. Nutritional hb screening: No deficits noted. Tuberculosis screening: No symptoms or risk factors identified. Fall Risk None identified. Assessment: 17:09 General: Appears in no apparent distress. Behavior is calm, cooperative. Pain: Denies hb pain. Neuro: Level of Consciousness is awake, alert, obeys commands, Oriented to person, place, time, situation. Cardiovascular: Patient's skin is warm and dry. Respiratory: Respiratory effort is even, unlabored, Respiratory pattern is regular, symmetrical. GI: Reports anorexia, diarrhea. : No signs and/or symptoms were reported regarding the genitourinary system. EENT: No signs and/or symptoms were reported regarding the EENT system. Derm: Skin is pink, warm \T\ dry. Musculoskeletal: No signs and/or symptoms reported regarding the musculoskeletal system. 18:30 Reassessment: Patient appears in no apparent distress at this time. Patient and/or hb family updated on plan of care and expected duration. Pain level reassessed. Patient is alert, oriented x 3, equal unlabored respirations, skin warm/dry/pink. 20:00 Reassessment: Patient appears in no apparent distress at this time. Patient and/or hb family updated on plan of care and expected duration. Pain level reassessed. Patient is alert, oriented x 3, equal unlabored respirations, skin warm/dry/pink. Vital Signs: 13:14 BP 133 / 78; Pulse 95; Resp 16; Temp 98.2(TE); Pulse Ox 100% on R/A; Weight 59.42 kg ss (M); Height 5 ft. 3 in. (160.02 cm); Pain 0/10; 14:15 BP 132 / 76; Pulse 88; Resp 15; Pulse Ox 99% on R/A; hb 16:00 BP 130 / 72; Pulse 81; Resp 16; Pulse Ox 99% ; hb 18:32 BP 127 / 77; Pulse 74; Resp 15; Pulse Ox 100% ; hb 13:14 Body Mass Index 23.21 (59.42 kg, 160.02 cm) ED Course: 12:16 Patient arrived in ED. mr 12:16 Tadeo Means MD is Private Physician. mr 13:11 [facility] Sal[facility]. jl9 13:11 Vish Nunez MD is Attending Physician. jl9 13:16 Triage completed. ss 13:16 Arm band placed on left wrist. ss 15:11 Tessy Yap, RN is Primary Nurse. hb 15:32 Inserted saline lock: 22 gauge in right forearm, using aseptic technique. Blood hb collected. 16:56 Abdomen In Process Unspecified. EDMS 17:10 Patient has correct armband on for positive identification. hb 18:53 Jonatan Richardson is Hospitalizing Provider. jl9 19:17 Hospitalizing Provider role handed off by Jonatan Richardson jl9 19:17 Tadeo Means MD is Hospitalizing Provider. jl9 Administered Medications: 15:45 Drug: NS 0.9% 1000 ml Route: IV; Rate: 1000 ml; Site: right forearm; hb 16:40 Follow up: Response: No adverse reaction; IV Status: Completed infusion; IV Intake: hb 1000ml 19:16 Drug: NS 0.9% 1000 ml Route: IV; Rate: 125 ml/hr; Site: left forearm; hb 19:17 Drug: metroNIDAZOLE 500 mg Volume: 100 ml; Route: IVPB; Infused Over: 30 mins; Site: hb left forearm; 19:20 Follow up: Response: No adverse reaction; IV Status: Completed infusion; IV Intake: hb 100ml 20:02 Drug: LevaQUIN (levofloxacin) 500 mg Volume: 100 ml; Route: IVPB; Infused Over: 60 hb mins; Site: left forearm; 21:00 Follow up: Response: No adverse reaction; IV Status: Completed infusion; IV Intake: hb 100ml Medication: 17:54 VIS not applicable for this client. hb Intake: 16:40 IV: 1000ml; Total: 1000ml. hb 19:20 IV: 100ml; Total: 1100ml. hb 21:00 IV: 100ml; Total: 1200ml. hb Outcome: 18:53 Decision to Hospitalize by Provider. jl9 21:43 Patient left the ED. hb Signatures: Dispatcher [employer] [facility] LauroCallie Shelby, RN RN ss Baxter, Heather, RN RN hb Linares, John jl9
--- NOTE | 2022-09-03 18:55 | EDPHYS ---
Physician Documentation [facility] Name: Kasia Auguste Age: 82 yrs Sex: Female : 1940 Arrival Date: 09/03/2022 Time: 12:16 Bed 25 Private MD: Tadeo Means C ED Physician iVsh Nunez HPI: 09/03 18:29 This 82 yrs old Female presents to ER via Ambulatory with complaints of Sore jl9 Throat, Diarrhea x numerous days with intermittent abdominal cramping. . 18:29 Onset: The symptoms/episode began/occurred 1 week(s) ago. Severity of symptoms: in the jl9 emergency department the symptoms a " 5" out of "10". Modifying factors: The symptoms are alleviated by nothing, the symptoms are aggravated by nothing. Associated signs and symptoms: Pertinent positives:. Historical: - Allergies: 13:16 KAELA INHIBITORS; ss 13:16 Augmentin; ss 13:16 Bactrim; ss 13:16 Potassium Chloride; ss 13:16 TETRACYCLINES; ss - PMHx: 13:16 Arthritis; hiatal hernia; Glaucoma; Osteoporosis; HTN; CVA; Asthma; ss - PSHx: 13:16 Appendectomy; Cholecystectomy; hysterectomy; sigmoid colon removed; ss - Immunization history:: Client reports receiving the 2nd dose of the Covid vaccine, Flu vaccine is up to date. - Social history:: Smoking status: Patient denies any tobacco usage or history of. ROS: 18:29 Constitutional: Negative for fever, chills, and weight loss, Eyes: Negative for injury, jl9 pain, redness, and discharge, ENT: Negative for injury, pain, and discharge, Neck: Negative for injury, pain, and swelling, Cardiovascular: Negative for chest pain, palpitations, and edema, Respiratory: Negative for shortness of breath, cough, wheezing, and pleuritic chest pain. 18:29 Back: Negative for injury and pain, : Negative for injury, bleeding, discharge, and swelling, MS/Extremity: Negative for injury and deformity, Skin: Negative for injury, rash, and discoloration, Neuro: Negative for headache, weakness, numbness, tingling, and seizure, Psych: Negative for depression, anxiety, suicide ideation, homicidal ideation, and hallucinations, Allergy/Immunology: Negative for hives, rash, and allergies, Endocrine: Negative for neck swelling, polydipsia, polyuria, polyphagia, and marked weight changes, Hematologic/Lymphatic: Negative for swollen nodes, abnormal bleeding, and unusual bruising. 18:29 Abdomen/GI: Positive for abdominal pain, diarrhea. Exam: 18:30 Constitutional: This is a well developed, well nourished patient who is awake, alert, jl9 and in no acute distress. Head/Face: Normocephalic, atraumatic. Eyes: Pupils equal round and reactive to light, extra-ocular motions intact. Lids and lashes normal. Conjunctiva and sclera are non-icteric and not injected. Cornea within normal limits. Periorbital areas with no swelling, redness, or edema. ENT: Mucous membranes moist. Neck: Trachea midline, no thyromegaly or masses palpated, and no cervical lymphadenopathy. Supple, full range of motion without nuchal rigidity, or vertebral point tenderness. No Meningismus. Chest/axilla: Normal chest wall appearance and motion. Nontender with no deformity. No lesions are appreciated. Cardiovascular: Regular rate and rhythm with a normal S1 and S2. No gallops, murmurs, or rubs. Normal PMI, no JVD. No pulse deficits. Respiratory: Lungs have equal breath sounds bilaterally, clear to auscultation and percussion. No rales, rhonchi or wheezes noted. No increased work of breathing, no retractions or nasal flaring. 18:30 Back: No spinal tenderness. No costovertebral tenderness. Full range of motion. Skin: Warm, dry with normal turgor. Normal color with no rashes, no lesions, and no evidence of cellulitis. MS/ Extremity: Pulses equal, no cyanosis. Neurovascular intact. Full, normal range of motion. Neuro: Awake and alert, GCS 15, oriented to person, place, time, and situation. Cranial nerves II-XII grossly intact. Motor strength 5/5 in all extremities. Sensory grossly intact. Cerebellar exam normal. Normal gait. Psych: Awake, alert, with orientation to person, place and time. Behavior, mood, and affect are within normal limits. 18:30 Abdomen/GI: Inspection: abdomen appears normal, Bowel sounds: normal, Palpation: mild abdominal tenderness, in all quadrants. Vital Signs: 13:14 BP 133 / 78; Pulse 95; Resp 16; Temp 98.2(TE); Pulse Ox 100% on R/A; Weight 59.42 kg ss (M); Height 5 ft. 3 in. (160.02 cm); Pain 0/10; 14:15 BP 132 / 76; Pulse 88; Resp 15; Pulse Ox 99% on R/A; hb 16:00 BP 130 / 72; Pulse 81; Resp 16; Pulse Ox 99% ; hb 18:32 BP 127 / 77; Pulse 74; Resp 15; Pulse Ox 100% ; hb 13:14 Body Mass Index 23.21 (59.42 kg, 160.02 cm) ss MDM: 13:31 Patient medically screened. [facility] 18:30 Data reviewed: vital signs, nurses notes. Counseling: I had a detailed discussion with daniel the patient and/or guardian regarding: the historical points, exam findings, and any diagnostic results supporting the discharge/admit diagnosis, lab results, radiology results, the need for further work-up and treatment in the hospital. 18:52 Physician consultation: Pavel Hoffmann MD was called at 18:52, was contacted at 18:52, [facility] regarding and will see patient in inpatient room. 18:52 ED course: Discuss with SHAYAN Cardenas. Will see patient. Admit to Dr. Richardson. . [facility] 09/03 13:14 Order name: COVID-19/FLU A+B/RSV; Complete Time: 14:56 [facility] 09/03 13:24 Order name: Strep; Complete Time: 14:19 09/03 14:00 Order name: Throat Culture [facility] 09/03 15:01 Order name: CBC with Diff; Complete Time: 16:23 [facility] 09/03 15:01 Order name: CMP; Complete Time: 17:04 [facility] 09/03 15:01 Order name: Lipase; Complete Time: 17:04 [facility] 09/03 15:01 Order name: CT Abd/Pelvis - IV Contrast Only [facility] 09/03 15:05 Order name: Abdomen ; Complete Time: 18:24 [facility] 09/03 16:52 Order name: Urine Dipstick-Ancillary; Complete Time: 17:04 [facility] 09/03 19:27 Order name: CONS Physician Consult [facility] 09/03 15:01 Order name: IV Saline Lock; Complete Time: 15:39 [facility] 09/03 15:01 Order name: Labs collected and sent; Complete Time: 15:39 9 09/03 15:01 Order name: Urine Dipstick-Ancillary (obtain specimen); Complete Time: 17:09 9 09/03 18:54 Order name: NPO; Complete Time: 18:55 Administered Medications: 15:45 Drug: NS 0.9% 1000 ml Route: IV; Rate: 1000 ml; Site: right forearm; hb 16:40 Follow up: Response: No adverse reaction; IV Status: Completed infusion; IV Intake: hb 1000ml 19:16 Drug: NS 0.9% 1000 ml Route: IV; Rate: 125 ml/hr; Site: left forearm; hb 19:17 Drug: metroNIDAZOLE 500 mg Volume: 100 ml; Route: IVPB; Infused Over: 30 mins; Site: hb left forearm; 19:20 Follow up: Response: No adverse reaction; IV Status: Completed infusion; IV Intake: hb 100ml 20:02 Drug: LevaQUIN (levofloxacin) 500 mg Volume: 100 ml; Route: IVPB; Infused Over: 60 hb mins; Site: left forearm; 21:00 Follow up: Response: No adverse reaction; IV Status: Completed infusion; IV Intake: hb 100ml Disposition Summary: 09/03/22 18:53 Hospitalization Ordered Condition: Stable jl9 Problem: new jl9 Symptoms: are unchanged jl9 Bed/Room Type: Standard 9 Hospitalization Status: Inpatient Admission(09/03/22 19:17) jl9 Provider: Tadeo Means(09/03/22 19:17) jl9 Location: Telemetry/MedSur (Inpatient)(09/03/22 19:18) jl9 Room Assignment: [facility](09/03/22 20:32) Diagnosis - Other viral enteritis jl9 Forms: - Medication Reconciliation Form jl9 - SBAR form jl9 Addendum: 09/05/2022 13:40 Co-signature as Attending Physician, Vish Nunez MD I agree with the assessment and c tirado plan of care. Signatures: Dispatcher [employer] Vish Champion MD MD cha Smirch, Shelby, RN RN ss Garcia, Cindy, RN RN cg Baxter, Heather, RN RN hb Linares, John 9 Corrections: (The following items were deleted from the chart) 09/03 19:17 18:53 Observation jl9 9 19:17 18:53 Jonatan Richardson jl9 jl9 19:18 18:53 Telemetry/MedSurg (observation) jl9 jl9 19:18 18:53 jl9 jl9 20:32 19:18 jl9 cg
[2022-09-03] MEDS ORDERED: METRONIDAZOLE 500mg IVPB 500 MG/100 ML BAG IV ONE (18:57)
[2022-09-03] MEDS ORDERED: Levofloxacin500mg IV 500 MG/100 ML BAG IV ONE (18:58)
[2022-09-03] MEDS: NA CHLORIDE 0.9% 1,000 ML IV SCH (21:53)
[2022-09-04 05:52] LABS: Absolute Lymphocytes (CBC) 0.4 K/uL (0.7-4.9); Hematocrit 28.7 % (36.0-45.0); MCV 85.9 fL (80-100); MPV 8.8 fL (7.6-11.3); RBC Red Blood Cell Count 3.34 M/uL (3.86-4.86)
[2022-09-04 06:06] LABS: Albumin 3.2 g/dL (3.4-5.0); Bilirubin Total 0.4 mg/dL (0.2-1.0); Potassium 3.3 mmol/L (3.5-5.1); Protein, Total 6.4 g/dL (6.4-8.2)
[2022-09-04] MEDS: NA CHLORIDE 0.9% 1,000 ML IV SCH (06:06)
[2022-09-04 08:23] LABS: White Blood Cell Scan OK (OK)
[2022-09-04 08:31] LABS: Anisocytosis 1+; Blood Morphology Comment NOTED (NOT SEEN); Platelet Estimate ADEQ; Platelets, Giant 1+
[2022-09-04 08:32] LABS: Ovalocytes SLIGHT; Poikilocytosis 1+
[2022-09-04] MEDS ORDERED: ONDANSETRON 4 MG/2 ML VIAL IV PRN (08:43)
[2022-09-04] MEDS ORDERED: MORPHINE 2 MG/ML SYR IV PRN (08:43)
[2022-09-04] MEDS ORDERED: ALBUTEROL 2.5 MG/3 ML NEB SOL NEB SCH (08:57)
[2022-09-04] MEDS: D5 0.9 NS 1,000 ML IV SCH (09:19)
[2022-09-04] MEDS: METRONIDAZOLE 500mg IVPB 500 MG/100 ML BAG IV SCH ×2 (09:20→16:24)
[2022-09-04] MEDS: LEVOTHYROXINE SOD 0.025 MG TAB PO SCH (10:04)
[2022-09-04] MEDS: ESCITALOPRAM 20 MG TAB PO SCH (10:04)
[2022-09-04] MEDS: ASPIRIN EC 81 MG TAB PO SCH (10:04)
[2022-09-04] MEDS: LOSARTAN POTASSIUM 50 MG TABLET PO SCH (10:05)
[2022-09-04] MEDS: CLOPIDOGREL 75 MG TABLET PO SCH (10:05)
[2022-09-04] MEDS: LORATADINE 10 MG TAB PO SCH (10:05)
[2022-09-04] MEDS: Levofloxacin 750mg IV 750 MG/150 ML BAG IV SCH (10:10)
[2022-09-04] MEDS: ACETAMINOPHEN 500 MG TAB PO PRN (11:42)
[2022-09-04] MEDS ORDERED: ALBUTEROL 2.5 MG/3 ML NEB SOL NEB PRN (12:00)
--- NOTE | 2022-09-04 13:01 | RAD REPORT ---
EXAM DESCRIPTION: RAD - Abdomen W Erect - 09/04/2022 12:16 pm FINDINGS: Free air not seen beneath the diaphragm. Several mildly dilated loops of small bowel without significant change from September 03, 2022 Air within the colon is diminished. These findings probably indicate an enteritis. However, a partial small bowel obstruction can also tirado ve similar presentation.
--- NOTE | 2022-09-04 18:07 | CON ---
Date of Consultation: 09/04/2022 Brief History Of Present Illness: Patient is an 82-year-old female who presents to the hospital with complaints of sore throat, originally started on Sudafed, who noticed worsening progressive abdomina l pain shortly thereafter and distention with the diarrhea persistent, voluminous diarrhea. She stat es she continued to have multiple episodes of diarrhea throughout the course of the past week, approx imately large voluminous amounts. Her abdominal pain resolved, but continues to have intermittent cr amps and mild abdominal distention. No nausea, no vomiting, no fever, no chills. She is passing gas readily. Past Medical History: Significant for stroke with right-sided hemiparesis in 2013, hypertension, hyp oglycemia, hypothyroidism, glaucoma, asthma, hyperlipidemia, GERD, diverticulosis, leukopenia, anemia , osteoporosis, hiatal hernia, arthritis. Past Surgical History: Included a breast biopsy for benign lesion, cholecystectomy, appendectomy, pa rtial colectomy of the sigmoid colon due to colonic perforation back in 2012, hysterectomy. Social History: She denies smoking, alcohol, or recreational drug use. Allergies: TO TETRACYCLINE CAUSING RASH. KAELA INHIBITORS CAUSING A COUGH. ADHESIVE TAPE. AUGMENTIN . BACTRIM. KCL. Review of Systems: Ten-point review of systems other than HPI, currently denies. Physical Examination: At the time of my examination: General: She is awake, alert, and oriented. Psychiatric: She is appropriate and conversive. HEENT: She is normocephalic. Her sclerae are anicteric. Her mucous membranes are moist. Oropharyn x is clear. Neck: Supple without JVD. Chest: Normal expansion and excursion. Cardiovascular: Regular rate and rhythm. Pulmonary: Clear to auscultation bilaterally. Abdomen: Soft, nontender, with mild distention. Mild tympanic. No rebound. No guarding. No focal peritonitis. Well-healed surgical scars in the lower midline are appreciated. No evidence of tende rness on any aspect of her examination. Laboratory Data: Revealed white blood cell count of 2.8, her hemoglobin is 9.5, her hematocrit of 28 .7, platelet count is 190, neutrophils are normal at 61%. Her sodium was 142, potassium 3.3, chlorid e was 113, carbon dioxide 25, BUN 11, creatinine 0.6, glucose is 84, calcium 7.7, total bilirubin 0.4 , AST 18, ALT 20, alkaline phosphatase is 71. Her lipase is 114. Her UA was essentially negative. She had an imaging performed, which included a CT of the abdomen and pelvis on 09/03/2022, officially read as nonspecific distended small bowel in the central and left hemiabdomen at the transition poin t to nondistended small bowel is smooth. No obstructing mass. This could represent a partial small bowel obstruction, early high-grade bowel obstruction or enteritis. Assessment And Plan: This is an 82-year-old female who presents with signs and symptoms of enteritis versus possible early small bowel obstruction. 1.IV fluid hydration. 2.Serial abdominal exams. 3.Continue medical management. 4.I found that the patient likely has a clinical picture more likely of enteritis than bowel obstruc tion as she continues to have significant large volume of diarrhea and has no abdominal pain other th an intermittent cramping and no acute signs of bowel obstruction. Therefore, I continue to recommend medical management, supportive IV therapy with antibiotics, and I will follow along with you. Thank you for this interesting consult. RYAN/ANA Voice ID: [id number] Report ID: [id number]
[2022-09-04] MEDS: AMLODIPINE 10 MG TAB PO SCH (21:20)
[2022-09-04] MEDS: TIZANIDINE 4 MG TABLET PO SCH (21:22)
[2022-09-04] MEDS: ROSUVASTATIN 10 MG TAB PO SCH (21:22)
[2022-09-04 23:22] VITALS: O2SAT 97
[2022-09-05] MEDS: ACETAMINOPHEN 500 MG TAB PO PRN ×3 (00:12→21:46)
[2022-09-05] MEDS: METRONIDAZOLE 500mg IVPB 500 MG/100 ML BAG IV SCH ×3 (00:14→16:53)
[2022-09-05] MEDS: D5 0.9 NS 1,000 ML IV SCH (00:18)
[2022-09-05] MEDS: LEVOTHYROXINE SOD 0.025 MG TAB PO SCH (05:29)
[2022-09-05 06:22] LABS: Magnesium 2.1 mg/dL (1.8-2.4)
[2022-09-05 06:26] LABS: Potassium 2.8 mmol/L (3.5-5.1)
[2022-09-05 06:45] LABS: Absolute Lymphocytes (CBC) 0.6 K/uL (0.7-4.9); Hematocrit 33.4 % (36.0-45.0); Lymphocytes % 17.5 % (15.3-44.8); MCV 84.4 fL (80-100); MPV 8.7 fL (7.6-11.3); RBC Red Blood Cell Count 3.95 M/uL (3.86-4.86)
[2022-09-05] MEDS: KCL 20 MEQ/100 mL IVPB 20 MEQ/100 ML BAG IV SCH ×3 (07:32→14:30)
[2022-09-05] MEDS: LORATADINE 10 MG TAB PO SCH (08:20)
[2022-09-05] MEDS: LOSARTAN POTASSIUM 50 MG TABLET PO SCH (08:20)
[2022-09-05] MEDS: ESCITALOPRAM 20 MG TAB PO SCH (08:20)
[2022-09-05] MEDS: ASPIRIN EC 81 MG TAB PO SCH (08:20)
[2022-09-05] MEDS: CLOPIDOGREL 75 MG TABLET PO SCH (08:21)
[2022-09-05] MEDS: Levofloxacin 750mg IV 750 MG/150 ML BAG IV SCH (10:44)
--- NOTE | 2022-09-05 12:06 | RAD REPORT ---
EXAM DESCRIPTION: RAD - Abdomen W Erect - 09/05/2022 11:51 am CLINICAL HISTORY: enteritis Pain COMPARISON: Abdomen W Erect dated 09/04/2022; Abdomen Pelvis W Contrast dated 09/03/2022 FINDINGS: A few mildly prominent air-filled and thickened small bowel loops in the left abdomen appe ar unchanged since yesterday's study. No free air. No suspicious calcifications. No significant bony findings. Cholecystectomy clips. IMPRESSION: Mildly prominent left-sided small bowel loops show no significant change since 2.
--- NOTE | 2022-09-05 15:11 | PN ---
Date of Progress Note: 09/05/2022 Subjective: The patient was seen this morning for followup. No new complaints or problems reported by patient. She had about 3-4 bowel movements in the last 24 hours, mostly it is liquid, but now has some formed stool with it. Still has bloating of her abdomen, but it is better today than yesterday , she reports. No abdominal pain. Has had some nausea, but no vomiting. She is tolerating clear li quid diet well. Objective: Vital Signs: Reviewed. HEENT: Examination unremarkable. Lungs: Clear to auscultation. Heart: Sounds normal. Abdomen: Soft. Bowel sounds normal. No guarding, rigidity, tenderness, distention. Abdomen still appears slightly bloated compared to normal. Extremities: No leg edema. Laboratory Data: White count today 3.6, hemoglobin 10.9, platelets 201. Sodium 143, potassium 2.8, chloride 109, bicarb 23, BUN 6, creatinine 0.58, glucose 109, magnesium 2.1. Impression: 1.Acute gastroenteritis. 2.Partial small bowel obstruction. 3.Hypokalemia. 4.Anemia. Plan: We will go ahead and continue current antibiotics. Continue clear liquid diet. The patient i s tolerating that very well. We will repeat another abdominal x-ray today and replace potassium per protocol. Discontinue IV fluid and I will see her tomorrow for followup. BALTAZAR/MODL Voice ID: [id number] Report ID: [id number]
[2022-09-05] MEDS: ROSUVASTATIN 10 MG TAB PO SCH (21:35)
[2022-09-05] MEDS: AMLODIPINE 10 MG TAB PO SCH (21:36)
[2022-09-05] MEDS: TIZANIDINE 4 MG TABLET PO SCH (21:36)
[2022-09-06] MEDS: METRONIDAZOLE 500mg IVPB 500 MG/100 ML BAG IV SCH ×3 (00:22→18:54)
[2022-09-06] MEDS ORDERED: POTASSIUM 25 MEQ EFFERV TAB PO ONE (00:50)
[2022-09-06] MEDS ORDERED: NA CHLORIDE 0.9% 250 ML ONE ×2 (01:30→16:44)
[2022-09-06] MEDS: KCL 20 MEQ/100 mL IVPB 20 MEQ/100 ML BAG IV SCH ×2 (01:33→11:00)
[2022-09-06 03:12] VITALS: BMI 23.0
[2022-09-06] MEDS: LEVOTHYROXINE SOD 0.025 MG TAB PO SCH (06:11)
[2022-09-06 06:24] LABS: Magnesium 1.8 mg/dL (1.8-2.4)
[2022-09-06 06:25] LABS: Potassium 2.9 mmol/L (3.5-5.1)
[2022-09-06 06:30] LABS: Absolute Lymphocytes (CBC) 0.5 K/uL (0.7-4.9); Hematocrit 29.6 % (36.0-45.0); Lymphocytes % 14.9 % (15.3-44.8); MCV 84.3 fL (80-100); MPV 8.5 fL (7.6-11.3); RBC Red Blood Cell Count 3.51 M/uL (3.86-4.86)
--- NOTE | 2022-09-06 07:51 | HP ---
Date of Admission: 09/04/2022 Chief Complaint: Abdominal cramps, diarrhea, sore throat. History Of Present Illness: This is an 82-year-old very pleasant female patient, who started to have sore throat a few days ago and after that, she started to have abdominal cramps, diarrhea, and bloating. Denies any nausea, vomiting. No blood in stool. No fever. No chills. After she came into emergency room, she was evaluated and admitted to the hospital with possibility of partial bowel obstruction and acute gastroenteritis. Allergies: TETRACYCLINE CAUSING RASH, KAELA INHIBITOR CAUSES COUGH, ADHESIVE TAPE CAUSES HER SKIN TO GET PEELED OFF, AND AUGMENTIN CAUSES DIARRHEA AND BLEEDING. Medications: ProAir inhaler 2 puffs every 4 hours as needed for shortness of breath, amlodipine 10 mg daily, aspirin 81 mg daily, clopidogrel 75 mg daily, vitamin D3 1000 unit daily, escitalopram 10 mg daily, Prolia injection every 6 months, Advair inhaler 1 puff by mouth 2 times a day, folic acid 1 mg daily, hydrochlorothiazide 12.5 mg daily, levothyroxine 25 mcg daily, losartan 100 mg daily, Claritin 10 mg daily, rosuvastatin 20 mg daily, rabeprazole 20 mg daily, tizanidine 4 mg at bedtime, and vitamin B complex daily. Review of Systems: GI: As mentioned above. ENT: As mentioned above. All other systems reviewed and negative. Past Medical History: Significant for stroke in August 2014, COVID-19 infection in October 2021, glaucoma, allergic rhinitis, hypothyroidism, impaired fasting glucose, mild persistent asthma, hypertension, hyperlipidemia, gastroesophageal reflux disease, diverticulosis, leukocytopenia, anemia, osteoporosis. Past Surgical History: Breast biopsy which was benign, cholecystectomy, appendectomy, partial resection of colon due to diverticulosis in 2012, and hysterectomy. Family History: Father , had cerebral aneurysm and hypertension. Mother , had uterine cancer. Brother has diabetes. Social History: Negative for smoking, alcohol use. Physical Examination: Vital Signs: Temperature 98.3, pulse 89, respiratory rate 14, blood pressure 139/60, oxygen saturation 96%. Height 5 feet 3 inches, weight 130 pounds. General: Awake, alert, oriented, not in distress. HEENT: Head atraumatic, normocephalic. Conjunctivae nonerythematous. Sclerae white. Mouth, no thrush or edema noted. Ears/Nose, no mass, lesion, discharge noted. Neck: Supple. No JVD, lymph nodes, bruit, thyromegaly noted. Lungs: Bilateral good equal air entry. Clear to auscultation. No rhonchi. No rales. Heart: Normal heart sounds, no murmur or gallop. Abdomen: Appears mildly distended, but no guarding, rigidity, tenderness. No hepatosplenomegaly. No bruit. Bowel sounds normoactive. Extremities: No leg edema. No calf tenderness. Skin: No rash, ulcer, cellulitis. Lymphatics: No lymph node enlargement in neck, supraclavicular, infraclavicular region. Neuro: No focal neurological deficit. Chest: Unremarkable. External Genitalia: Deferred. Rectal: Deferred. Laboratory Data: Yesterday; white count 4.6, hemoglobin 11.7, platelets 227. Today; white count 2.8, hemoglobin 9.5, platelets 119. Yesterday; sodium 138, potassium 3.9, chloride 106, bicarb 23, BUN 19, creatinine 0.88, glucose 96. Liver function tests unremarkable. Lipase 114. Today; sodium 142, potassium 3.3, chloride 113, bicarb 25, BUN 11, creatinine 0.62, glucose 84. Liver function tests unremarkable. Urinalysis; 1+ ketones and trace blood, otherwise negative. Influenza A and B, RSV and COVID-19 test negative. CAT scan of the abdomen and pelvis done yesterday in the emergency room shows nonspecific distended small bowel in the central and left abdomen, transition point to known distended small bowel. No obstructing mass. This could represent partial small bowel obstruction or early high-grade bowel obstruction or enteritis. Impression: 1. Acute gastroenteritis. 2. Possible partial small bowel obstruction. 3. Anemia, unspecified. 4. Leukocytopenia. 5. Hypokalemia. 6. Hypertension. 7. Hyperlipidemia. 8. Hypothyroidism. 9. Impaired fasting glucose. 10. Gastroesophageal reflux disease. 11. Diverticulosis. 12. Mild persistent asthma. Plan: We will admit the patient to hospital for further evaluation and management of this problem. The patient is appropriate for inpatient and is expected to spend 2 midnights in hospital. We have concern about acute gastroenteritis and possibility of partial small bowel obstruction. At this point, we will keep her n.p.o., consult general surgeon on-call, Dr. Hoffmann. We will let her have a few ice chips and few sips of water on an as needed basis and oral medication with few sips water per order. Empiric antibiotic, Levaquin, and metronidazole will be given per order. We will order stool test for culture as well as C diff toxin. DVT prophylaxis will be given per order. Ambulation was encouraged. For her glaucoma, we will continue her eyedrops that she normally takes at home. For hypertension, antihypertensive medication will be continued per order and we will monitor blood pressure and make adjustment on blood pressure medicine if needed. For hyperlipidemia, we will continue her statin therapy, which is rosuvastatin. For gastroesophageal reflux disease, we will continue her proton pump inhibitor therapy per order. Leukocytopenia and anemia will not require any further intervention except monitoring at this point. Details and plan of treatment discussed with her. I will see her tomorrow for followup. BALTAZAR/MODL Voice ID: [id number] KRYSTA
[2022-09-06] MEDS: Levofloxacin 750mg IV 750 MG/150 ML BAG IV SCH (08:50)
[2022-09-06] MEDS: ASPIRIN EC 81 MG TAB PO SCH (08:51)
[2022-09-06] MEDS: LORATADINE 10 MG TAB PO SCH (08:51)
[2022-09-06] MEDS: ESCITALOPRAM 20 MG TAB PO SCH (08:51)
[2022-09-06] MEDS: LOSARTAN POTASSIUM 50 MG TABLET PO SCH (08:51)
[2022-09-06] MEDS: CLOPIDOGREL 75 MG TABLET PO SCH (08:52)
[2022-09-06] MEDS: AZELASTINE HCL 205.5 MCG/0.137 ML NAS SCH ×2 (09:00→21:00)
[2022-09-06] MEDS: Fluticasone/Salmeterol [Advair 250-50 Diskus] Blst.W.Dev IH SCH ×2 (09:00→21:00)
[2022-09-06] MEDS: PUMP NAS SCH ×2 (09:00→21:00)
[2022-09-06] MEDS: BRINZOLAMIDE OPTH SCH ×2 (09:00→20:49)
[2022-09-06] MEDS: RABEPRAZOLE SODIUM 20 MG PO SCH (09:00)
--- NOTE | 2022-09-06 10:38 | RAD REPORT ---
EXAM DESCRIPTION: RAD - Abdomen W Erect - 09/06/2022 10:06 am CLINICAL HISTORY: enteritis, rule out partial bowel obstruction COMPARISON: Abdomen W Erect dated 09/05/2022; Abdomen Pelvis W Contrast dated 09/03/2022 TECHNIQUE: Supine and upright views of the abdomen were obtained. FINDINGS: Multiple distended small bowel loops are present in the abdomen. Pattern matches the Novem study. No free air or pneumatosis have developed. Numerous phleboliths seen along the pelvic f aki. Clips are seen in the right upper quadrant. IMPRESSION: Numerous air-filled distended small bowel loops are present. The ileus/enteritis pattern is similar to September 05.
[2022-09-06] MEDS: ACETAMINOPHEN 500 MG TAB PO PRN (19:25)
[2022-09-06] MEDS: ROSUVASTATIN 10 MG TAB PO SCH (20:20)
[2022-09-06] MEDS: AMLODIPINE 10 MG TAB PO SCH (20:20)
[2022-09-06] MEDS: TIZANIDINE 4 MG TABLET PO SCH (20:20)
--- NOTE | 2022-09-06 22:51 | PN ---
Date of Progress Note: 09/06/2022 Subjective: Patient was seen this morning for followup. She had diarrhea about 5 times during daytime yesterday. Last bowel movement was around 4:40 p.m. and after that she did not have any further diarrhea. This morning, she denies any other new complaints. Objective: Vital Signs: Reviewed. HEENT: Unremarkable. Lungs: Clear to auscultation. Heart: Sounds normal. Abdomen: Soft. Bowel sounds normal. No guarding, rigidity, tenderness, or distention. Extremities: No leg edema. Laboratory Data: Sodium 143, potassium 2.9, chloride 109, bicarb 23, BUN 6, creatinine 0.57, glucose 95, and magnesium 1.8. Impression: 1. Acute gastroenteritis. 2. Partial small bowel obstruction, ruled out. 3. Hypokalemia. Plan: We will go ahead and replace potassium per order. Get a stool C diff and stool culture. Abdominal x-ray will be done today. We will repeat blood work tomorrow. Continue current antibiotics and we will see her tomorrow for followup. BALTAZAR/MODL Voice ID: [id number] Report ID: [id number] KRYSTA
[2022-09-07] MEDS: METRONIDAZOLE 500mg IVPB 500 MG/100 ML BAG IV SCH ×3 (00:18→20:06)
[2022-09-07] MEDS: KCL 20 MEQ/100 mL IVPB 20 MEQ/100 ML BAG IV SCH ×2 (01:24→05:23)
[2022-09-07] MEDS ORDERED: NA CHLORIDE 0.9% 250 ML ONE (05:17)
[2022-09-07] MEDS: LEVOTHYROXINE SOD 0.025 MG TAB PO SCH (05:44)
[2022-09-07 06:47] LABS: Magnesium 1.8 mg/dL (1.8-2.4); Potassium 3.1 mmol/L (3.5-5.1)
[2022-09-07 07:41] LABS: Absolute Lymphocytes (CBC) 0.4 K/uL (0.7-4.9); Hematocrit 29.3 % (36.0-45.0); MCV 84.8 fL (80-100); MPV 8.7 fL (7.6-11.3); RBC Red Blood Cell Count 3.46 M/uL (3.86-4.86)
[2022-09-07] MEDS: PUMP NAS SCH ×2 (09:00→21:00)
[2022-09-07] MEDS: RABEPRAZOLE SODIUM 20 MG PO SCH (09:00)
[2022-09-07] MEDS: BRINZOLAMIDE OPTH SCH ×2 (09:00→21:00)
[2022-09-07] MEDS: Fluticasone/Salmeterol [Advair 250-50 Diskus] Blst.W.Dev IH SCH ×2 (09:00→21:00)
[2022-09-07] MEDS: AZELASTINE HCL 205.5 MCG/0.137 ML NAS SCH ×2 (09:00→21:00)
[2022-09-07] MEDS ORDERED: MAGNESIUM SULFATE 1 gm IVPB 1 GM/100 ML BAG IV ONE (10:00)
[2022-09-07] MEDS: Levofloxacin 750mg IV 750 MG/150 ML BAG IV SCH (10:32)
[2022-09-07] MEDS: ASPIRIN EC 81 MG TAB PO SCH (10:33)
[2022-09-07] MEDS: LOSARTAN POTASSIUM 50 MG TABLET PO SCH (10:33)
[2022-09-07] MEDS: POTASSIUM CL SA 10 MEQ TAB PO SCH ×2 (10:33→20:07)
[2022-09-07] MEDS: LORATADINE 10 MG TAB PO SCH (10:34)
[2022-09-07] MEDS: CLOPIDOGREL 75 MG TABLET PO SCH (10:34)
[2022-09-07] MEDS: ESCITALOPRAM 20 MG TAB PO SCH (10:34)
[2022-09-07 10:37] LABS: C.diff Antigen/Toxin Ag neg : Tox neg (NEG : NEG)
[2022-09-07] MEDS: ACETAMINOPHEN 500 MG TAB PO PRN (15:11)
[2022-09-07] MEDS: ROSUVASTATIN 10 MG TAB PO SCH (20:07)
[2022-09-07] MEDS: TIZANIDINE 4 MG TABLET PO SCH (20:08)
[2022-09-07] MEDS: AMLODIPINE 10 MG TAB PO SCH (20:12)
--- NOTE | 2022-09-07 20:54 | PN ---
Date of Progress Note: 09/07/2022 Subjective: Patient was seen this morning for followup. No new complaints, problems reported by chandrika ruiz except ongoing diarrhea, which is improving. Yesterday, she had 3 diarrheal stool and day befor e yesterday, she had 5 diarrheal stool. No abdominal cramping. Bloating of abdomen is still present , but improving. No nausea, no vomiting. Objective: Vital Signs: Reviewed. HEENT: Unremarkable. Lungs: Clear to auscultation. Heart: Sounds normal. Abdomen: Soft. Bowel sounds normal. No guarding, rigidity, tenderness, distention. Extremities: No leg edema. Laboratory Data: Sodium 141, potassium 3.1, chloride 111, bicarb 22, BUN 8, creatinine 0.56, glucose 103. Magnesium 1.8. Stool culture is pending. Stool C difficile came back negative. Impression: 1.Acute gastroenteritis. 2.Hypokalemia. 3.Hypertension. Plan: We have ruled out partial or complete small-bowel obstruction. Patient has acute gastroenteri tis, slowly is improving. We will continue current IV antibiotics. Replace potassium per protocol a nd I will also start her on potassium chloride 20 mEq 2 times a day. We will repeat blood work tomorrow. Possible discharge to go home tomorrow depending on her condition. BALTAZAR/MODL Voice ID: [id number] Report ID: [id number]
[2022-09-08] MEDS: METRONIDAZOLE 500mg IVPB 500 MG/100 ML BAG IV SCH ×2 (01:00→08:27)
[2022-09-08] MEDS: ACETAMINOPHEN 500 MG TAB PO PRN (03:24)
[2022-09-08 05:42] LABS: Potassium 3.1 mmol/L (3.5-5.1)
[2022-09-08] MEDS: LEVOTHYROXINE SOD 0.025 MG TAB PO SCH (06:27)
[2022-09-08] MEDS: KCL 20 MEQ/100 mL IVPB 20 MEQ/100 ML BAG IV SCH ×2 (06:47→08:29)
[2022-09-08] MEDS ORDERED: NA CHLORIDE 0.9% 250 ML ONE (06:51)
[2022-09-08] MEDS: ESCITALOPRAM 20 MG TAB PO SCH (08:27)
[2022-09-08] MEDS: LOSARTAN POTASSIUM 50 MG TABLET PO SCH (08:27)
[2022-09-08] MEDS: CLOPIDOGREL 75 MG TABLET PO SCH (08:27)
[2022-09-08] MEDS: POTASSIUM CL SA 10 MEQ TAB PO SCH (08:27)
[2022-09-08] MEDS: ASPIRIN EC 81 MG TAB PO SCH (08:27)
[2022-09-08] MEDS: LORATADINE 10 MG TAB PO SCH (08:27)
[2022-09-08] MEDS: RABEPRAZOLE SODIUM 20 MG PO SCH (08:28)
[2022-09-08] MEDS: Levofloxacin 750mg IV 750 MG/150 ML BAG IV SCH (08:28)
[2022-09-08] MEDS: BRINZOLAMIDE OPTH SCH (08:28)
[2022-09-08] MEDS: Fluticasone/Salmeterol [Advair 250-50 Diskus] Blst.W.Dev IH SCH (08:28)
[2022-09-08] MEDS: AZELASTINE HCL 205.5 MCG/0.137 ML NAS SCH (08:29)
[2022-09-08] MEDS: PUMP NAS SCH (08:29)
[2022-09-08 10:43] VITALS: BP 124/77; TEMP 98.4
--- NOTE | 2022-09-08 20:24 | DS ---
Date of Discharge: 09/08/2022 Disposition: Discharged to go home. Physical Examination: HEENT: Unremarkable. Lungs: Clear to auscultation. Heart: Sounds normal. Abdomen: Soft. Bowel sounds normal. No guarding, rigidity, tenderness, or distention. Extremities: No leg edema. Laboratory Data: Upon admission white count was 4.6, hemoglobin 11.7, and platelets 227. Yesterday white count was 3.1, hemoglobin 9.7, and platelets 190. On her initial chemistry sodium 138, potassi um 3.9, chloride 106, bicarb 23, BUN 19, creatinine 0.88, and glucose 96. Liver function tests unrem arkable. Lowest potassium was 2.8 and the patient did have low potassium almost on a daily basis. L ast potassium today was 3.1, sodium 140, chloride 109, bicarb 24, BUN 15, creatinine 0.68, glucose 11 7, and magnesium 2. Hospital Course: This 82-year-old pleasant female patient was admitted to the hospital with abdomina l cramps, diarrhea, and sore throat feeling. Please see dictated H and P for more information. Afte r patient was evaluated in the emergency room, she was admitted to the hospital with acute gastroente ritis. Initially, we were concerned about possibility of small bowel obstruction, but that was ruled out. Dr. Hoffmann from General Surgery was consulted and no further intervention required from his p oint of view. The patient had diarrhea on a daily basis as much as 5 times a day, which slowed down and day before yesterday she had 3 bowel movements and yesterday she had no bowel movement at all. H er abdominal cramps have resolved. No nausea, no vomiting. Initially, she was on clear liquid diet, which we advanced it and she has tolerated diet very well. She is ambulating well without any diffi culties and today she feels much better and wants to go home. Medically, she is stable for discharge . Final Diagnoses: 1.Acute gastroenteritis. 2.Hypokalemia. 3.Anemia, unspecified. 4.Leukocytopenia. 5.Hypertension. 6.Hyperlipidemia. 7.Hypothyroidism. 8.Impaired fasting glucose. 9.Gastroesophageal reflux disease. 10.Diverticulosis. 11.Mild persistent asthma. Discharge Medications And Instructions: 1.Continue all prior home medications. 2.Take following new medications and prescriptions will be sent to your Pharmacy from office: a.Potassium chloride 20 mEq take 1 tablet by mouth 2 times a day. b.Magnesium oxide 400 mg take 1 tablet by mouth daily. c.Levofloxacin 500 mg take 1 tablet by mouth daily for 1 week. d.Metronidazole 500 mg take 1 tablet by mouth 3 times a day for 1 week. 3.Follow up at office next week. 4.Avoid fatty fried meal. 5.You should eat bland diet like rice, pasta, potatoes, bread, etc. BALTAZAR/MODL Voice ID: [id number] Report ID: [id number]
== END 2022-09-08 11:34 | disposition home or self-care (01) | DRG 392 ==
LOC: ER 12:13 → ERHOLD 19:23 → 2ND 21:12
PROVIDERS: ADMIT Internal Medicine; ATTEND Internal Medicine
DX: A08.4 Viral intestinal infection, unspecified (principal); I69.351 Hemiplegia and hemiparesis following cerebral infarction affecting right dominant side; I10 Essential (primary) hypertension; E87.6 Hypokalemia; D64.9 Anemia, unspecified; K21.9 Gastro-esophageal reflux disease without esophagitis; E78.5 Hyperlipidemia, unspecified; E03.9 Hypothyroidism, unspecified; H40.9 Unspecified glaucoma; M19.90 Unspecified osteoarthritis, unspecified site; M81.0 Age-related osteoporosis without current pathological fracture; J45.30 Mild persistent asthma, uncomplicated; D72.819 Decreased white blood cell count, unspecified; K57.90 Diverticulosis of intestine, part unspecified, without perforation or abscess without bleeding; R73.01 Impaired fasting glucose; Z88.1 Allergy status to other antibiotic agents; Z88.8 Allergy status to other drugs, medicaments and biological substances; Z86.16 Personal history of COVID-19; Z90.49 Acquired absence of other specified parts of digestive tract; Z79.82 Long term (current) use of aspirin; Z90.710 Acquired absence of both cervix and uterus; Z79.890 Hormone replacement therapy; Z79.899 Other long term (current) drug therapy; Z20.822 Contact with and (suspected) exposure to COVID-19
CPT/HCPCS: 0241U; 36415; 74019; 74177; 80048; 80053; 81003; 83690; 83735; 84132; 85025; 87045; 87046; 87070; 87081; 87177; 87209; 87324; 87329; 96361; 96365; 96375; 99284; J3475; J3480; J7030; J7042; J7050; Q9967

== ENCOUNTER 2023-05-30 23:02 | Emergency (ER) | payer OTHER ==
--- NOTE | 2023-05-31 01:47 | EDPHYS ---
Physician Documentation [facility] Name: Kasia Auguste Age: 83 yrs Sex: Female : 1940 Arrival Date: 05/30/2023 Time: 23:02 Bed 8 Private MD: ED Physician Reyes Nichols HPI: 05/31 01:51 This 83 yrs old Female presents to ER via EMS with complaints of fall. kb 01:51 Details of fall: The patient fell from an upright position, while walking. Onset: The kb symptoms/episode began/occurred just prior to arrival. Associated injuries: The patient sustained injury to the chest, specifically the right lateral posterior chest and right lateral anterior chest, pain with breathing, pain with movement, tenderness, left forearm, ecchymosis, hematoma, painful injury, swelling, right calf, abrasion, ecchymosis. Severity of symptoms: At their worst the symptoms were moderate, in the emergency department the symptoms are unchanged. The patient has not experienced similar symptoms in the past. The patient has not recently seen a physician. Pt reports her walker got away from her and she fell into her vanity. c/o pain to right ribs and left forearm. Historical: - Allergies: 05/30 23:10 KAELA INHIBITORS; jb4 23:10 Augmentin; jb4 23:10 Bactrim; jb4 23:10 Potassium Chloride; jb4 23:10 TETRACYCLINES; jb4 - PMHx: 23:10 CVA; HTN; hiatal hernia; Asthma; Arthritis; Osteoporosis; Glaucoma; jb4 - PSHx: 23:10 Appendectomy; Cholecystectomy; hysterectomy; sigmoid colon removed; jb4 ROS: 05/31 01:48 Constitutional: Negative for fever, chills, and weight loss. kb Cardiovascular: Positive for right rib pain. MS/extremity: Positive for pain, swelling, tenderness, of the left forearm. Skin: Positive for abrasion(s), ecchymosis, of the right calf. All other systems are negative. Exam: 01:54 Constitutional: This is a well developed, well nourished patient who is awake, alert, kb and in no acute distress. Head/Face: Normocephalic, atraumatic. Eyes: Pupils equal round and reactive to light, extra-ocular motions intact. Lids and lashes normal. Conjunctiva and sclera are non-icteric and not injected. Cornea within normal limits. Periorbital areas with no swelling, redness, or edema. ENT: Moist Mucous membranes Cardiovascular: Regular rate and rhythm with a normal S1 and S2. No gallops, murmurs, or rubs. No pulse deficits. Respiratory: Respirations even and unlabored. No increased work of breathing. Talking in full sentences Abdomen/GI: Soft, non-tender. No distention Back: No spinal tenderness. No costovertebral tenderness. Full range of motion. Neuro: Awake and alert, GCS 15, oriented to person, place, time, and situation. Moves all extremities. Normal gait. 01:54 Chest/axilla: Inspection: normal, Palpation: tenderness, that is moderate, of the right lateral posterior chest and right lateral anterior chest, that totally reproduces the patient's complaints. 01:54 Musculoskeletal/extremity: Extremities: grossly normal except: noted in the left forearm: decreased ROM, ecchymosis, pain, swelling, tenderness, ROM: limited active range of motion due to pain, in the left forearm, Circulation is intact in all extremities. Sensation intact. 01:54 Skin: injury, abrasion(s), small abrasion noted, of the right calf. Vital Signs: 05/30 23:08 BP 129 / 70; Pulse 64; Resp 16; Temp 98.4(O); Pulse Ox 97% on R/A; Weight 61.23 kg (R); jb4 Height 5 ft. 3 in. ; 05/31 00:30 BP 159 / 78; Pulse 74; Resp 16; Pulse Ox 98% on R/A; jb4 01:00 BP 155 / 77; Pulse 71; Resp 16; Pulse Ox 96% ; jb4 05/30 23:08 Body Mass Index 23.91 (61.23 kg, 160.02 cm) jb4 MDM: 05/30 23:04 Patient medically screened. kb 05/31 01:53 Differential diagnosis: abrasion, closed head injury, contusion, fracture, laceration. kb Data reviewed: vital signs, nurses notes. Historians other than the Patient: EMS: [facility]. Counseling: I had a detailed discussion with the patient and/or guardian regarding: the historical points, exam findings, and any diagnostic results supporting the discharge/admit diagnosis, radiology results, the need for outpatient follow up, a family practitioner, to return to the emergency department if symptoms worsen or persist or if there are any questions or concerns that arise at home. 01:54 Care significantly affected by the following chronic conditions: on blood thinners. kb 05/30 23:05 Order name: CT Traumagram (Head C Spine CAP wo con) kb 05/30 23:05 Order name: Forearm Left XRAY kb 05/31 00:56 Order name: Sugar Tong Forearm Splint; Complete Time: 03:00 kb 05/31 01:47 Order name: Sling; Complete Time: 03:00 kb Administered Medications: No medications were administered Disposition: 02:59 Co-signature as Attending Physician, Reyes Nichols MD I agree with the assessment sp4 and plan of care. I reviewed the patient's care provided by the Advanced Practice Provider and agree with the diagnosis and treatment plan. Disposition Summary: 05/31/23 01:46 Discharge Ordered Location: Home kb Condition: Stable kb Diagnosis - Fracture of left ulna kb - Fall on same level from slipping, tripping and stumbling without subsequent kb striking against object Followup: kb - With: Emergency Department - When: As needed - Reason: Worsening of condition Followup: kb - With: Private Physician - When: 2 - 3 days - Reason: Recheck today's complaints, Continuance of care, Re-evaluation by your physician Discharge Instructions: - Discharge Summary Sheet kb - Ulnar Fracture kb - Cast or Splint Care, Adult, [id number] kb Forms: - Medication Reconciliation Form kb - Thank You Letter kb - Antibiotic Education kb - Prescription Opioid Use kb - Patient Portal Instructions kb - Leadership Thank You Letter kb Signatures: Dispatcher [employer] Graciela Cordero, PARTY HOST-C MALINA-Shalom Bishop, RN RN jb4 Reyes Nichols MD MD sp4
--- NOTE | 2023-05-31 01:47 | ER ---
Nurse's Notes [facility] Name: Kasia Auguste Age: 83 yrs Sex: Female : 1940 Arrival Date: 05/30/2023 Time: 23:02 Bed 8 Private MD: Diagnosis: Fracture of left ulna;Fall on same level from slipping, tripping and stumbling without subsequent striking against object Presentation: 05/30 23:08 Chief complaint: EMS states: Pt fell, denies LOC. Reports right rib and leg pain and jb4 left wrist pain. Coronavirus screen: At this time, the client does not indicate any symptoms associated with coronavirus-19. Ebola Screen: No symptoms or risks identified at this time. Initial Sepsis Screen: Does the patient meet any 2 criteria? No. Patient's initial sepsis screen is negative. Does the patient have a suspected source of infection? No. Patient's initial sepsis screen is negative. Risk Assessment: Do you want to hurt yourself or someone else? Patient reports no desire to harm self or others. Onset of symptoms was May 30, 2023. Transition of care: patient was not received from another setting of care. 23:08 Method Of Arrival: EMS: [facility] jb4 23:08 Acuity: DARRICK 3 jb4 Historical: - Allergies: 23:10 KAELA INHIBITORS; jb4 23:10 Augmentin; jb4 23:10 Bactrim; jb4 23:10 Potassium Chloride; jb4 23:10 TETRACYCLINES; jb4 - PMHx: 23:10 CVA; HTN; hiatal hernia; Asthma; Arthritis; Osteoporosis; Glaucoma; jb4 - PSHx: 23:10 Appendectomy; Cholecystectomy; hysterectomy; sigmoid colon removed; jb4 Screenin:54 [facility] ED Fall Risk Assessment (Adult) History of falling in the last 3 months, jb4 including since admission Yes- single mechanical fall (1 pt) Confusion or Disorientation No (0 pts) Score/Fall Risk Level 0 - 2 = Low Risk Oriented to surroundings. Abuse screen: Denies threats or abuse. Nutritional screening: No deficits noted. Tuberculosis screening: No symptoms or risk factors identified. Assessment: 23:08 General: Appears in no apparent distress. comfortable, Behavior is calm, cooperative, jb4 appropriate for age. Pain: Complains of pain in right lateral anterior chest, anterior aspect of right lateral abdomen, medial aspect of left wrist and right leg Pain does not radiate. Pain currently is 5 out of 10 on a pain scale. Neuro: Level of Consciousness is awake, alert, obeys commands, Oriented to person, place, time, situation. Cardiovascular: Patient's skin is warm and dry. Respiratory: Airway is compromised Respiratory effort is even, unlabored, Respiratory pattern is regular, symmetrical. GI: No signs and/or symptoms were reported involving the gastrointestinal system. : No signs and/or symptoms were reported regarding the genitourinary system. EENT: No signs and/or symptoms were reported regarding the EENT system. Derm: Skin is pink, warm \T\ dry. Musculoskeletal: Circulation, motion, and sensation intact. Range of motion: intact in all extremities. Injury Description: Skin tear to right lower extremity. 05/31 00:30 Reassessment: Patient appears in no apparent distress at this time. Patient and/or jb4 family updated on plan of care and expected duration. Pain level reassessed. Patient is alert, oriented x 3, equal unlabored respirations, skin warm/dry/pink. 02:00 Reassessment: Patient appears in no apparent distress at this time. Patient and/or jb4 family updated on plan of care and expected duration. Pain level reassessed. Patient is alert, oriented x 3, equal unlabored respirations, skin warm/dry/pink. 03:12 Reassessment: Patient appears in no apparent distress at this time. Patient and/or jb4 family updated on plan of care and expected duration. Pain level reassessed. Patient is alert, oriented x 3, equal unlabored respirations, skin warm/dry/pink. Vital Signs: 05/30 23:08 BP 129 / 70; Pulse 64; Resp 16; Temp 98.4(O); Pulse Ox 97% on R/A; Weight 61.23 kg (R); 4 Height 5 ft. 3 in. ; 05/31 00:30 BP 159 / 78; Pulse 74; Resp 16; Pulse Ox 98% on R/A; 4 01:00 BP 155 / 77; Pulse 71; Resp 16; Pulse Ox 96% ; 4 05/30 23:08 Body Mass Index 23.91 (61.23 kg, 160.02 cm) [facility] ED Course: 05/30 23:03 Patient arrived in ED. rv1 23:04 Graciela Dc FNP-C [facility] kb 23:04 Reyes Nichols MD is Attending Physician. kb 23:08 Shalom Irwin, RN is Primary Nurse. jb4 23:10 Triage completed. jb4 23:10 Arm band placed on right wrist. jb4 23:53 Forearm Left XRAY In Process Unspecified. EDMS 05/31 00:38 CT Traumagram (Head C Spine CAP wo con) In Process Unspecified. EDMS 01:00 Patient has correct armband on for positive identification. Bed in low position. Call jb4 light in reach. Side rails up X 1. 01:00 No provider procedures requiring assistance completed. Patient did not have IV access jb4 during this emergency room visit. 02:43 Orthoglass splint: Sugar tong splint applied on left arm. Sling applied to left arm. oe Administered Medications: No medications were administered Outcome: 01:46 Discharge ordered by MD. kb 03:13 Discharged to home via wheelchair, with family. jb4 03:13 Condition: stable 03:13 Discharge instructions given to patient, Instructed on discharge instructions, follow up and referral plans. Demonstrated understanding of instructions, follow-up care. 03:13 Patient left the ED. jb4 Signatures: Dispatcher [employer] EDRI Graciela Dc FNP-C FNP-Ckb Shalom Irwin, RN RN jb4 Justin Yadav Rebecca rv1
[2023-05-31 03:42] VITALS: TEMP 98.4
[2023-05-31 03:45] VITALS: BP 155/77; O2SAT 96
--- NOTE | 2023-05-31 11:25 | RAD REPORT ---
EXAM DESCRIPTION: CT - Head C Spine Cap Con - 05/31/2023 6:45 am CLINICAL HISTORY: TRAUMA TECHNIQUE: Contiguous axial CT images obtained through the brain without IV contrast. Coronal and sa gittal reformatted images were provided. This exam was performed according to our departmental dose-optimization program, which includes autom ated exposure control, adjustment of the mA and/or kV according to patient size and/or use of iterati ve reconstruction technique. COMPARISON: None available for comparison FINDINGS: Brain: Age-related loss of brain volume and chronic white matter ischemic changes. No foca l mass effect. Garvin-white matter differentiation is within normal limits. No hemorrhage. Ventricles: No ventriculomegaly or midline shift. Extra-axial spaces: No extra-axial collection or hemorrhage. Paranasal sinuses and mastoid air cells: Chronic left maxillary sinus disease. Bones: Unremarkable Soft tissues: Unremarkable IMPRESSION: 1. No acute intracranial or extra-axial abnormality. 2. Age-related loss of brain volume and chronic white matter ischemic changes. 3. Chronic left maxillary sinus disease. EXAM DESCRIPTION: Head C Spine Cap Wo Con CLINICAL HISTORY: TRAUMA TECHNIQUE: Contiguous axial CT images obtained through the cervical spine without IV contrast. Cor onal and sagittal reformatted images also provided. This exam was performed according to our departmental dose-optimization program, which includes autom ated exposure control, adjustment of the mA and/or kV according to patient size and/or use of iterati ve reconstruction technique. COMPARISON: None available for comparison FINDINGS: Vertebra: No acute fracture or subluxation. Degenerative changes: Mild degenerative changes with multilevel facet joint arthropathy and mild narr owing of intervertebral disc spaces. Prevertebral soft tissues: Unremarkable Lung apices: Clear IMPRESSION: No acute cervical spine fracture or malalignment. Mild degenerative changes of the cervical spine. EXAM DESCRIPTION: Head C Spine Cap Wo Con CLINICAL HISTORY: TRAUMA TECHNIQUE: Contiguous axial images obtained through the chest , abdomen and pelvis without IV contra st. Coronal and sagittal reformatted images provided. This exam was performed according to our departmental dose-optimization program, which includes autom ated exposure control, adjustment of the mA and/or kV according to patient size and/or use of iterati ve reconstruction technique. COMPARISON: No prior exams provided for comparison. FINDINGS: Lungs: No focal consolidation. Airways are patent. Tree-in-bud nodularities in the right upper lobe which may represent sequela from small airway diseas e. Atelectatic changes in the lung bases. Pleura: No effusion. No pneumothorax. Heart and pericardium: The heart is normal in size. No pericardial effusion. Coronary atherosclerotic calcifications. Mediastinum and agustin: No pathologically enlarged lymph nodes. Lower neck and chest wall: Unremarkable Vessels: Unremarkable Bones: No acute rib cage fracture. Liver: Small complex lesion in the dome of the liver with calcifications measuring approximately 1.4 cm in diameter, not characterized without intravenous contrast and likely incidental. Probable small cyst in the left lobe of the liver. Gallbladder and biliary system: Status post cholecystectomy. Pancreas: Unremarkable Spleen: Unremarkable Adrenals: Unremarkable Kidneys: Punctate nonobstructive calcification in the left kidney measuring less than 3 mm. Gl : No obstruction. No appreciable mucosal thickening. Anastomotic surgical changes in the distal re ctosigmoid. Appendix: No findings to suggest acute appendicitis. Urinary bladder: Unremarkable Reproductive: Status post hysterectomy. Lymph nodes: No pathologically enlarged lymph nodes. Peritoneum: No focal fluid collection. No free air. Vessels: No abdominal aortic aneurysm. Abdominal wall: Unremarkable Bones: Prominent compression deformity of L1, which may be chronic. IMPRESSION: 1. No evidence of acute intrathoracic, abdominal, or pelvic injury. 2. Evaluation is limited without intravenous contrast. 3. Tree-in-bud nodularities in the right upper lobe which may represent sequela from small airway d isease. 4. Small complex lesion in the dome of the liver with calcifications measuring approximately 1.4 cm in diameter, not characterized without intravenous contrast and likely incidental. Probable small cy st in the left lobe of the liver. 5. Prominent compression deformity of L1, which may be chronic. Electronically signed by: Fransisco Sanchez MD 05/31/2023 1:29 AM CDT Due to temporary technical issues with the PACS/Fluency reporting system, reports are being signed by the in house radiologists without review as a courtesy to insure prompt reporting. The interpreting radiologist is fully responsible for the content of the report.
--- NOTE | 2023-05-31 11:39 | RAD REPORT ---
EXAM DESCRIPTION: RAD - Forearm Left - 05/30/2023 11:51 pm CLINICAL HISTORY: Injury with pain TECHNIQUE: Left radius and ulna 2 views. COMPARISON: None. FINDINGS: There is a minimally displaced comminuted fracture involving the distal diaphysis of the u parts identifier. There is adjacent soft tissue swelling. IMPRESSION: 1. Fracture of the distal ulna with adjacent soft tissue swelling. Electronically signed by: David Tafoya MD 05/31/2023 12:01 AM CDT Due to temporary technical issues with the PACS/Fluency reporting system, reports are being signed by the in house radiologists without review as a courtesy to insure prompt reporting. The interpreting radiologist is fully responsible for the content of the report.
== END 2023-05-31 03:13 | disposition home or self-care (01) ==
LOC: ER 23:02 → SUPCPDRO 23:02 → ER 05-31 03:13
PROC: 2W3DX1Z Immobilization of Left Lower Arm using Splint (ICD-10-PCS; principal; 2023-05-31)
DX: S52.202A Unspecified fracture of shaft of left ulna, initial encounter for closed fracture (principal); W01.0XXA Fall on same level from slipping, tripping and stumbling without subsequent striking against object, initial encounter; Z88.1 Allergy status to other antibiotic agents; Z88.8 Allergy status to other drugs, medicaments and biological substances
CPT/HCPCS: 70450; 71250; 72125; 99283

== ENCOUNTER 2023-07-05 09:14 | Emergency (ER) | payer OTHER ==
--- NOTE | 2023-07-05 10:04 | ER ---
Nurse's Notes [facility] Name: Kasia Auguste Age: 83 yrs Sex: Female : 1940 Arrival Date: 07/05/2023 Time: 09:14 Bed IW1 Private MD: Tadeo Means C Diagnosis: Cellulitis, unspecified;Bitten by cat Presentation: 07/05 09:41 Chief complaint: Patient states: Cat bite on Tuesday, woke this morning with redness and jl7 swelling. Pt reports she took her HTN meds at 0800 this morning. PCP has been trying to get BP under control with new meds but they aren't working. Coronavirus screen: At this time, the client does not indicate any symptoms associated with coronavirus-19. Ebola Screen: No symptoms or risks identified at this time. Initial Sepsis Screen: Does the patient meet any 2 criteria? No. Patient's initial sepsis screen is negative. Does the patient have a suspected source of infection? No. Patient's initial sepsis screen is negative. Risk Assessment: Do you want to hurt yourself or someone else? Patient reports no desire to harm self or others. Onset of symptoms was July 03, 2023. 09:41 Method Of Arrival: Ambulatory jl7 09:41 Acuity: DARRICK 3 jl7 Triage Assessment: 09:44 Bite description: bite sustained to right hand by a cat, animal information: jl7 vaccination(s) is current. General: Appears in no apparent distress. uncomfortable, Behavior is calm, cooperative, appropriate for age. Pain: Complains of pain in right hand. Derm: Skin is pink, warm \T\ dry. Musculoskeletal: Swelling present in right hand. Injury Description: Bite sustained to right hand caused by a cat, is from animal, was sustained x3 days. Historical: - Allergies: 09:44 KAELA INHIBITORS; jl7 09:44 Augmentin; jl7 09:44 Bactrim; jl7 09:44 Potassium Chloride; jl7 09:44 TETRACYCLINES; jl7 - Home Meds: 09:44 hydralazine 10 mg oral tablet 2 tabs 2 times per day [Active]; metoprolol tartrate 25 jl7 mg Oral tablet 2 tabs 2 times per day [Active]; Advair Diskus 250-50 mcg/dose Inhl dsdv 1 puff 2 times per day [Active]; aspirin 81 mg Oral chew once daily [Active]; Cozaar 100 mg Oral tab once daily [Active]; Crestor 20 mg Oral tab 1 tab once daily [Active]; escitalopram oxalate 10 mg Oral tab 1 tab once daily [Active]; folic acid 1 mg Oral tab [Active]; hydroxyzine HCl 25 mg Oral tab as needed [Active]; loratadine 10 mg Oral tab 1 tab once daily [Active]; Plavix 75 mg Oral tab 1 tab once daily [Active]; proair 90 mcg 2 puffs as needed [Active]; rabeprazole 20 mg Oral TbEC 1 tab once daily [Active]; prolia 1 injection every 6 months [Active]; Tirosint 25 mcg Oral cap 1 cap once daily [Active]; tizanidine 4 mg Oral cap 1 cap daily [Active]; azelastine .15% 205.5 mcg twice a day [Active]; brinzolamide opth drops [Active]; - PMHx: 09:44 Arthritis; Asthma; CVA; Glaucoma; hiatal hernia; HTN; Osteoporosis; jl7 - PSHx: 09:44 Appendectomy; Cholecystectomy; hysterectomy; sigmoid colon removed; jl7 - Immunization history:: Last tetanus immunization: up to date 2021. - Social history:: Smoking status: Patient denies any tobacco usage or history of. Vital Signs: 09:41 BP 199 / 83; Pulse 70; Resp 15; Temp 97.3; Pulse Ox 97% ; Weight 61.23 kg; Height 5 ft. jl7 3 in. ; Pain 3/10; 10:28 BP 214 / 93; Pulse 70; Resp 15; Pulse Ox 97% ; jl7 11:24 BP 149 / 101; jl7 09:41 Body Mass Index 23.91 (61.23 kg, 160.02 cm) jl7 09:41 Pain Scale: Adult jl7 ED Course: 09:16 Patient arrived in ED. rg4 09:16 Tadeo Means MD is Private Physician. rg4 09:19 Diana Vasquez [facility] aj3 09:19 Anthony Ferris MD is Attending Physician. aj3 09:44 Triage completed. jl7 09:44 Arm band placed on right wrist. jl7 10:02 Tadeo Means MD is Referral Physician. aj3 10:27 Tammy Mclain, RN is Primary Nurse. jl7 11:25 No provider procedures requiring assistance completed. Patient did not have IV access jl7 during this emergency room visit. Administered Medications: :37 Drug: cloNIDine PO 0.1 mg PO once Route: PO; jl7 11:25 Follow up: Response: No adverse reaction; Blood pressure is lowered jl7 Medication: 11:25 VIS not applicable for this client. jl7 Outcome: 10:03 Discharge ordered by . aj3 11:25 Discharged to home ambulatory, jl7 11: Condition: stable 11:25 Discharge instructions given to patient, Instructed on discharge instructions, follow up and referral plans. medication usage, Demonstrated understanding of instructions, follow-up care, medications, Prescriptions given X 2, 11:26 Patient left the ED. jl7 Signatures: Therese Leavitt rg4 aTmmy Mclain, RN RN jl7 Diana Vasquez, AUTOBODY TECHNICIAN AUTOBODY TECHNICIAN aj3
--- NOTE | 2023-07-05 10:04 | EDPHYS ---
Physician Documentation [facility] Name: Kasia Auguste Age: 83 yrs Sex: Female : 1940 Arrival Date: 07/05/2023 Time: 09:14 Bed IW1 Private MD: Tadeo Means C ED Physician Anthony Ferris HPI: 07/05 10:01 This 83 yrs old Female presents to ER via Ambulatory with complaints of Cat Bite. aj3 10:01 cat bite occurred on Tuesday. She reports worsening pain, redness and swelling to right aj3 hand. No fever, chills, nausea/vomiting. . Historical: - Allergies: 09:44 KAELA INHIBITORS; jl7 09:44 Augmentin; 09:44 Bactrim; 09:44 Potassium Chloride; 09:44 TETRACYCLINES; jl7 - Home Meds: :44 hydralazine 10 mg oral tablet 2 tabs 2 times per day [Active]; metoprolol tartrate 25 jl7 mg Oral tablet 2 tabs 2 times per day [Active]; Advair Diskus 250-50 mcg/dose Inhl dsdv 1 puff 2 times per day [Active]; aspirin 81 mg Oral chew once daily [Active]; Cozaar 100 mg Oral tab once daily [Active]; Crestor 20 mg Oral tab 1 tab once daily [Active]; escitalopram oxalate 10 mg Oral tab 1 tab once daily [Active]; folic acid 1 mg Oral tab [Active]; hydroxyzine HCl 25 mg Oral tab as needed [Active]; loratadine 10 mg Oral tab 1 tab once daily [Active]; Plavix 75 mg Oral tab 1 tab once daily [Active]; proair 90 mcg 2 puffs as needed [Active]; rabeprazole 20 mg Oral TbEC 1 tab once daily [Active]; prolia 1 injection every 6 months [Active]; Tirosint 25 mcg Oral cap 1 cap once daily [Active]; tizanidine 4 mg Oral cap 1 cap daily [Active]; azelastine .15% 205.5 mcg twice a day [Active]; brinzolamide opth drops [Active]; - PMHx: 09:44 Arthritis; Asthma; CVA; Glaucoma; hiatal hernia; HTN; Osteoporosis; jl7 - PSHx: 09:44 Appendectomy; Cholecystectomy; hysterectomy; sigmoid colon removed; jl7 - Immunization history:: Last tetanus immunization: up to date 2021. - Social history:: Smoking status: Patient denies any tobacco usage or history of. ROS: 10:05 Constitutional: Negative for fever, chills, and weight loss, Neck: Negative for injury, aj3 pain, and swelling, Cardiovascular: Negative for chest pain, palpitations, and edema, Respiratory: Negative for shortness of breath, cough, wheezing, and pleuritic chest pain, Abdomen/GI: Negative for abdominal pain, nausea, vomiting, diarrhea, and constipation, Neuro: Negative for syncope, headache, weakness, numbness, tingling, and seizure, 10:05 MS/extremity: Positive for pain, right hand, 10:05 Skin: Positive for abrasion(s), erythema, Exam: 10:05 Constitutional: This is a well developed, well nourished patient who is awake, alert, aj3 and in no acute distress. Head/Face: Normocephalic, atraumatic. Neck: Supple, full range of motion without nuchal rigidity. Cardiovascular: Regular rate and rhythm with a normal S1 and S2. No gallops, murmurs, or rubs. Normal PMI, no JVD. No pulse deficits. Respiratory: Lungs have equal breath sounds bilaterally, clear to auscultation and percussion. No rales, rhonchi or wheezes noted. No increased work of breathing, no retractions or nasal flaring. Neuro: Awake and alert, GCS 15, oriented to person, place, time, and situation. Motor strength 5/5 in all extremities. Sensory grossly intact. Normal gait. 10:05 Musculoskeletal/extremity: Extremities: grossly normal except: noted in the right hand, dorsal: abrasion, erythema, tenderness, ROM: no acute changes, 10:05 Skin: cellulitis, that is mild, on the right hand, Vital Signs: 09:41 BP 199 / 83; Pulse 70; Resp 15; Temp 97.3; Pulse Ox 97% ; Weight 61.23 kg; Height 5 ft. jl7 3 in. ; Pain 3/10; 10:28 BP 214 / 93; Pulse 70; Resp 15; Pulse Ox 97% ; jl7 11:24 BP 149 / 101; jl7 09:41 Body Mass Index 23.91 (61.23 kg, 160.02 cm) jl7 09:41 Pain Scale: Adult jl7 MDM: 09:55 Patient medically screened. aj3 10:01 Differential diagnosis: superficial laceration, cellulitis, abrasion, abscess. aj3 10:05 Rabies Status: Rabies immunization is not indicated. Data reviewed: vital signs, nurses aj3 notes, I have discussed the patient's presentation/case with the attending Emergency Department Physician;. I considered the following discharge prescriptions or medication management in the emergency department Medications were administered in the Emergency Department. See MAR. Test considered but Not performed: X-ray: superficial injury, no imaging warranted. 10:41 ED course: Patient was cleared for discharge after discussion of cellulitis to right aj3 hand secondary to cat bite. Patient verbalized concern about her blood pressure and stated that she has been working with Dr. Means to find a proper regimen to lower her BP. We will give her dose of clonidine here and have her follow-up with PCP. Patient denies any associated symptoms at this time. 10:47 Counseling: I had a detailed discussion with the patient and/or guardian regarding the aj3 historical points, exam findings, and any diagnostic results supporting the discharge/admit diagnosis, the presence of at least one elevated blood pressure reading (>120/80) during this emergency department visit, the need for outpatient follow up, to return to the emergency department if symptoms worsen or persist or if there are any questions or concerns that arise at home. Administered Medications: 10:37 Drug: cloNIDine PO 0.1 mg PO once Route: PO; jl7 11:25 Follow up: Response: No adverse reaction; Blood pressure is lowered jl7 Disposition: 17:19 Co-signature as Attending Physician, Anthony Ferris MD I reviewed the patient's care rn provided by the Advanced Practice Provider and agree with the diagnosis and treatment plan. Disposition Summary: 07/05/23 10:03 Discharge Ordered Problem: new aj3 Symptoms: are unchanged aj3 Condition: Stable aj3 Diagnosis - Cellulitis, unspecified aj3 - Bitten by cat aj3 Followup: aj3 - With: Tadeo Means MD - When: - Reason: Recheck today's complaints, Re-evaluation by your physician Followup: aj3 - With: Emergency Department - When: - Reason: Fever > 102 F, Worsening of condition Discharge Instructions: - Discharge Summary Sheet aj3 - Animal Bite, Adult aj3 Forms: - Medication Reconciliation Form aj3 - Thank You Letter aj3 - Antibiotic Education aj3 - Prescription Opioid Use aj3 - Patient Portal Instructions aj3 - Leadership Thank You Letter aj3 Signatures: Anthony Ferris MD MD rn Tammy Mclain RN RN jl7 Diana Vasquez NP ENVIRONMENTAL HEALTH PHYSICIAN aj3
[2023-07-05] MEDS ORDERED: cloNIDine HCL 0.1 MG TAB ONE (10:45)
[2023-07-05 11:52] VITALS: TEMP 97.3; O2SAT 97
[2023-07-05 11:54] VITALS: BP 149/101
== END 2023-07-05 11:26 | disposition home or self-care (01) ==
LOC: ER 09:14
DX: L03.113 Cellulitis of right upper limb (principal); W55.01XA Bitten by cat, initial encounter; I10 Essential (primary) hypertension; Z88.1 Allergy status to other antibiotic agents; Z88.8 Allergy status to other drugs, medicaments and biological substances

== ENCOUNTER 2023-09-17 11:26 | Emergency (ER) | payer OTHER ==
--- OUTSIDE RECORDS SUMMARY | 2023-09-17 11:29 | XMS REPORT | Continuity of Care Document ---
:1940 Author Organization [facility] t Address [address] [place] [id number] Care Team Providers Name Role Phone [email or web address] Attending Clinician Unavailable [email or web address] Admitting Clinician Unavailable Problems This patient has no known problems. Allergies, Adverse Reactions, Alerts This patient has no known allergies or adverse reactions. Medications This patient has no known medications. Procedures This patient has no known procedures. Encounters Start End Encounter Admission Attending Care Care Encounter Source Date/Time Date/Time Type Type Clinicians Facility Department ID 2023-08-16 2023-08-16 Outpatient [email or web address] PRIV PRIV [id number] [facility] 00:00:00 00:00:00 diyala_S [id number] Medic al 2023-08-15 2023-08-15 Outpatient [email or web address] PRIV PRIV [id number] [facility] 00:00:00 00:00:00 diyala_S [id number] Medic al Results This patient has no known results.
--- NOTE | 2023-09-17 12:09 | EDPHYS ---
Physician Documentation [facility] Name: Kasia Auguste Age: 83 yrs Sex: Female : 1940 Arrival Date: 09/17/2023 Time: 11:26 Bed 10 Private MD: Tadeo Means C ED Physician Vish Nunez HPI: 09/17 11:33 This 83 yrs old Female presents to ER via Ambulatory with complaints of Cat Scratch. [facility] 11:33 Onset: The symptoms/episode began/occurred acutely. Associated signs and symptoms: The 7 patient has no apparent associated signs or symptoms. 83-year-old female reports that she was moving her cat's bed and her cat claw the top of her right thumb, causing a skin tear. The patient takes blood thinners.. Historical: - Allergies: 11:31 Augmentin; ld1 11:31 KAELA INHIBITORS; ld1 11:31 Bactrim; ld1 11:31 Potassium Chloride; ld1 11:31 TETRACYCLINES; ld1 - Home Meds: 11:31 Plavix 75 mg Oral tab 1 tab once daily [Active]; ld1 - PMHx: 11:31 Arthritis; CVA; Asthma; Osteoporosis; HTN; Glaucoma; hiatal hernia; ld1 - PSHx: 11:31 Appendectomy; Cholecystectomy; hysterectomy; sigmoid colon removed; ld1 - Immunization history:: Adult Immunizations up to date. - Social history:: Smoking status: Patient denies any tobacco usage or history of. Patient/guardian denies using alcohol. ROS: 11:33 Constitutional: Negative for fever, chills, and weight loss, Eyes: Negative for injury, jh7 pain, redness, and discharge, Neck: Negative for injury, pain, and swelling, Cardiovascular: Negative for chest pain, palpitations, and edema, Respiratory: Negative for shortness of breath, cough, wheezing, and pleuritic chest pain, Back: Negative for injury and pain, MS/Extremity: Negative for injury and deformity, Neuro: Negative for headache, weakness, numbness, tingling, and seizure, 11:33 Skin: Positive for avulsion, of the right thumb, 11:33 All other systems are negative, Exam: 11:33 Constitutional: This is a well developed, well nourished patient who is awake, alert, jh7 and in no acute distress. Head/Face: Normocephalic, atraumatic. Eyes: Pupils equal round and reactive to light, extra-ocular motions intact. Lids and lashes normal. Conjunctiva and sclera are non-icteric and not injected. Cornea within normal limits. Periorbital areas with no swelling, redness, or edema. Cardiovascular: Regular rate and rhythm with a normal S1 and S2. No gallops, murmurs, or rubs. Normal PMI, no JVD. No pulse deficits. Respiratory: Lungs have equal breath sounds bilaterally, clear to auscultation and percussion. No rales, rhonchi or wheezes noted. No increased work of breathing, no retractions or nasal flaring. MS/ Extremity: Pulses equal, no cyanosis. Neurovascular intact. Full, normal range of motion. Neuro: Awake and alert, GCS 15, oriented to person, place, time, and situation. Motor strength 5/5 in all extremities. Sensory grossly intact. Normal gait. 11:33 Skin: injury, avulsion(s), a small of the right thumb, Vital Signs: 11:33 BP 179 / 78; Pulse 86; Resp 18; Temp 98.3(TE); Pulse Ox 98% on R/A; Weight 59.87 kg; ld1 Height 5 ft. 4 in. ; Pain 0/10; 11:33 Body Mass Index 22.66 (59.87 kg, 162.56 cm) ld1 11:33 Pain Scale: Adult ld1 MDM: 11:33 Patient medically screened. [facility] 11:45 Differential diagnosis: Cat scratch, cat bite, puncture wound. Data reviewed: vital [facility] signs, nurses notes. Care significantly affected by the following chronic conditions: Hypertension. Counseling: I had a detailed discussion with the patient and/or guardian regarding the historical points, exam findings, and any diagnostic results supporting the discharge/admit diagnosis, to return to the emergency department if symptoms worsen or persist or if there are any questions or concerns that arise at home. ED course: Wound was cleansed and bandaged. Only mild bleeding was present which stopped after dressing was applied. The patient stated that due to her allergy to Augmentin that she usually gets 1 week of Cipro. Advised to monitor for signs and symptoms of infection.. 09/17 11:42 Order name: Wound dressing: clean and bandage wounds; Complete Time: 12:02 [facility] Administered Medications: No medications were administered Disposition Summary: 09/17/23 12:08 Discharge Ordered Notes: Location: Home [facility] Problem: new [facility] Symptoms: are unchanged [facility] Condition: Stable [facility] Diagnosis - Cat scratch [facility] - Skin avulsion [facility] Followup: [facility] - With: Tadeo Means MD - When: 2 - 3 days - Reason: Recheck today's complaints Discharge Instructions: - Discharge Summary Sheet [facility] - Skin Tear [facility] - Animal Bite, Adult [facility] Forms: - Medication Reconciliation Form [facility] - Thank You Letter [facility] - Antibiotic Education [facility] - Patient Portal Instructions [facility] - Leadership Thank You Letter [facility] Prescriptions: - Cipro 500 mg Oral Tablet - take 1 tablet ORAL route every 12 hours for 7 days; 14 tablet; Refills: 0, jh7 Product Selection Permitted Signatures: Laurel Sterling RN RN ld1 Mana Malik, FILAMENT COIL WINDER FIL[employer]ENT [employer] W[employer]ER [facility]
--- NOTE | 2023-09-17 12:09 | ER ---
Nurse's Notes [facility] Name: Kasia Auguste Age: 83 yrs Sex: Female : 1940 Arrival Date: 09/17/2023 Time: 11:26 Bed 10 Private MD: Tadeo Means C Diagnosis: Cat scratch;Skin avulsion Presentation: 09/17 11:33 Chief complaint: Patient states: Cat scratch to right thumb last night. Pt reports ld1 being on blood thinners, bleeding has not stopped. Coronavirus screen: At this time, the client does not indicate any symptoms associated with coronavirus-19. Ebola Screen: No symptoms or risks identified at this time. Initial Sepsis Screen: Does the patient meet any 2 criteria? No. Patient's initial sepsis screen is negative. Does the patient have a suspected source of infection? No. Patient's initial sepsis screen is negative. Risk Assessment: Do you want to hurt yourself or someone else? Patient reports no desire to harm self or others. Onset of symptoms was September 17, 2023. 11:33 Method Of Arrival: Ambulatory ld1 11:33 Acuity: DARRICK 4 ld1 Triage Assessment: 11:33 General: Appears in no apparent distress. comfortable, Behavior is calm, cooperative, ld1 appropriate for age. Pain: Denies pain. EENT: No signs and/or symptoms were reported regarding the EENT system. Neuro: Level of Consciousness is awake, alert, obeys commands, Oriented to person, place, time, situation. Cardiovascular: Capillary refill < 3 seconds Patient's skin is warm and dry. Respiratory: Airway is patent Respiratory effort is even, unlabored. GI: Abdomen is flat, non-distended. : No signs and/or symptoms were reported regarding the genitourinary system. Derm: cat scratch to right thumb. Musculoskeletal: No signs and/or symptoms reported regarding the musculoskeletal system. Historical: - Allergies: 11:31 Augmentin; ld1 11:31 KAELA INHIBITORS; ld1 11:31 Bactrim; ld1 11:31 Potassium Chloride; ld1 11:31 TETRACYCLINES; ld1 - Home Meds: 11:31 Plavix 75 mg Oral tab 1 tab once daily [Active]; ld1 - PMHx: 11:31 Arthritis; CVA; Asthma; Osteoporosis; HTN; Glaucoma; hiatal hernia; ld1 - PSHx: 11:31 Appendectomy; Cholecystectomy; hysterectomy; sigmoid colon removed; ld1 - Immunization history:: Adult Immunizations up to date. - Social history:: Smoking status: Patient denies any tobacco usage or history of. Patient/guardian denies using alcohol. Screenin:03 [facility] ED Fall Risk Assessment (Adult) History of falling in the last 3 months, cm10 including since admission No falls in past 3 months (0 pts) Confusion or Disorientation No (0 pts) Intoxicated or Sedated No (0 pts) Impaired Gait Yes (1 pt) Mobility Assist Device Used Yes (1 pt) Altered Elimination No (0 pt) Score/Fall Risk Level 0 - 2 = Low Risk Oriented to surroundings, Maintained a safe environment, Hourly rounding (assess needs \T\ fall precautionary measures) done. Abuse screen: Denies threats or abuse. Denies injuries from another. Nutritional screening: No deficits noted. Tuberculosis screening: No symptoms or risk factors identified. Assessment: 12:03 General: Appears in no apparent distress. comfortable, Behavior is calm, cooperative. cm10 Neuro: No deficits noted. Level of Consciousness is awake, alert, Oriented to person, place, time, situation. Respiratory: No deficits noted. Airway is patent Respiratory effort is even, unlabored, Respiratory pattern is regular, symmetrical. Derm: Wound noted Right thumb. Vital Signs: 11:33 BP 179 / 78; Pulse 86; Resp 18; Temp 98.3(TE); Pulse Ox 98% on R/A; Weight 59.87 kg; ld1 Height 5 ft. 4 in. ; Pain 0/10; 11:33 Body Mass Index 22.66 (59.87 kg, 162.56 cm) ld1 11:33 Pain Scale: Adult ld1 ED Course: 11:27 Patient arrived in ED. rg4 11:27 Tadeo Means MD is Private Physician. rg4 11:33 [facility] jh7 11:33 Vish Nunez MD is Attending Physician. jh7 11:33 Arm band placed on right wrist. ld1 11:34 Triage completed. ld1 12:02 Patient has correct armband on for positive identification. Bed in low position. cm10 Provided Education on: ER process and procedures. . 12:02 No provider procedures requiring assistance completed. Patient did not have IV access cm10 during this emergency room visit. Dressings: non-adherent dressing x 1 right thumb. 12:08 Tadeo Means MD is Referral Physician. nadia Administered Medications: No medications were administered Medication: 12:03 VIS not applicable for this client. cm10 Outcome: 12:08 Discharge ordered by . nadia 12:13 Discharged to home ambulatory, with family, cm10 12:13 Condition: good 12:13 Discharge instructions given to patient, Instructed on discharge instructions, follow up and referral plans. medication usage, wound care, Demonstrated understanding of instructions, follow-up care, medications, wound care, Prescriptions given X 1, 12:14 Patient left the ED. cm10 Signatures: Therese Leavitt rg4 Laurel Sterling, RN RN ld1 Mana Malik FNP FNP jh7 Martinez, Clarissa RN RN cm10 Corrections: (The following items were deleted from the chart) 12:12 12:02 Dressings: non-adherent dressing x 1 left thumb cm10 cm10 12:13 12:03 Derm: Wound noted Left thumb cm10 cm10
[2023-09-17 12:36] VITALS: BP 179/78; TEMP 98.3; O2SAT 98
== END 2023-09-17 12:14 | disposition home or self-care (01) ==
LOC: ER 11:26
DX: S61.011A Laceration without foreign body of right thumb without damage to nail, initial encounter (principal); W55.03XA Scratched by cat, initial encounter; Z79.01 Long term (current) use of anticoagulants
CPT/HCPCS: 99283

== ENCOUNTER → 2023-12-01 | Emergency (ER) | payer OTHER ==
[~2023-12-01] MED LIST: KETOROLAC 30 MG/ML INJ ONE
--- OUTSIDE RECORDS SUMMARY | 2023-12-01 14:43 | XMS REPORT | Continuity of Care Document ---
Author Name Unknown Address [address] [place] [address] [facility] Address [address] [place] [address] [address] [place] [address] Care Team Providers Care Network Operations Center Technician Name Role Phone [email or web address] Attending Clinician Ivána ble [email or web address] Admitting Clinician Unavaila ble Encounters Start Date/Time End Date/Time Encounter Type Admission Type Attending Clinicians Care Facility Care Department Encounter ID Source 2023-08-16 00:00:00 2023-08-16 00:00:00 Outpatient [email or web address] diyala_S PRIV PRIV [id number] [facility] 2023-08-15 00:00:00 2023-08-15 00:00:00 Outpatient [email or web address] diyala_S PRIV PRIV [id number] [facility]
--- NOTE | 2023-12-01 15:33 | RAD REPORT ---
EXAM DESCRIPTION: CT - Head Brain Wo Cont - 12/01/2023 3:24 pm CLINICAL HISTORY: WEAKNESS Headache, drowsiness COMPARISON: Ct Stroke Brain Wo Cont dated 07/07/2021 TECHNIQUE: All CT scans are performed using dose optimization technique as appropriate and may inclu de automated exposure control or mA/KV adjustment according to patient size. FINDINGS: No intracranial hemorrhage, hydrocephalus or extra-axial fluid collection.Moderate general ized brain atrophy is present with mild periventricular and deep white matter chronic microvascular i schemic changes.No areas of brain edema or evidence of midline shift. Vertebral atherosclerosis. Chronic left maxillary sinusitis. The calvarium is intact. IMPRESSION: No acute intracranial abnormality.
--- NOTE | 2023-12-01 15:42 | RAD REPORT ---
EXAM DESCRIPTION: CT - Pelvis Wo Cont - 12/01/2023 3:24 pm CLINICAL HISTORY: PAIN Right-sided pelvic pain COMPARISON: No comparisons TECHNIQUE: All CT scans are performed using dose optimization technique as appropriate and may inclu de automated exposure control or mA/KV adjustment according to patient size. FINDINGS: The osseous structures are demineralized. There is evidence of mild fat stranding surround ing the right iliopsoas muscle suggesting mild bursitis/muscle strain. No fracture or dislocation. No aggressive marrow pattern. Large amount of stool is present in the col on. IMPRESSION: Mild inflammatory changes involving the right iliopsoas muscle probably indicates bursit is or muscle strain. No fracture.
--- NOTE | 2023-12-01 16:05 | EDPHYS ---
Physician Documentation [facility] Name: Kasia Auguste Age: 83 yrs Sex: Female : 1940 Arrival Date: 12/01/2023 Time: 14:40 Bed 10 Private MD: Vish Franco HPI: 12/01 15:08 This 83 yrs old Female presents to ER via Wheelchair with complaints of groin pain. sb4 15:13 patient states that her right inner groin started hurting her about 4 days ago. she sb4 does not believe that she injured it. denies any bulging in the area, erythema, tenderness to touch. denies any urinary symptoms or hernia history. has been taking meloxicam without significant relief. Historical: - Allergies: 15:00 TETRACYCLINES; ll1 15:00 Augmentin; ll1 15:00 KAELA INHIBITORS; ll1 15:00 Bactrim; ll1 15:00 Potassium Chloride; ll1 - PMHx: 15:00 Arthritis; Asthma; CVA; Glaucoma; hiatal hernia; HTN; Osteoporosis; ll1 - PSHx: 15:00 Appendectomy; Cholecystectomy; hysterectomy; sigmoid colon removed; ll1 - Immunization history:: Adult Immunizations up to date. - Social history:: Smoking status: Patient denies any tobacco usage or history of. ROS: 15:19 Constitutional: Negative for fever, chills, and weight loss, sb4 15:19 MS/extremity: Positive for pain, of the pelvis, 15:19 All other systems are negative, Exam: 15:19 Constitutional: This is a well developed, well nourished patient who is awake, alert, sb4 and in no acute distress. Head/Face: Normocephalic, atraumatic. Eyes: Extra-ocular motions intact. Periorbital areas with no swelling, redness, or edema. ENT: Mucous membranes moist. Cardiovascular: Regular rate and rhythm with a normal S1 and S2. Respiratory: Lungs have equal breath sounds bilaterally, clear to auscultation and percussion. No rales, rhonchi or wheezes noted. No increased work of breathing, no retractions or nasal flaring. Abdomen/GI: Soft, non-tender, no distension. Skin: Warm, dry with normal turgor. Normal color with no rashes, no lesions, and no evidence of cellulitis. Neuro: Awake and alert, GCS 15, oriented to person, place, time, and situation. Motor strength 5/5 in all extremities. Sensory grossly intact. 15:19 Musculoskeletal/extremity: ROM: limited active range of motion due to pain, limited passive range of motion due to pain, in the right leg, Circulation is intact in all extremities. Pulses: are normal with no appreciated deficits, Perfusion: the extremity is normally perfused throughout, Sensation intact. Vital Signs: 14:58 BP 101 / 65; Pulse 67; Resp 17; Temp 97.8; Pulse Ox 100% ; Weight 61.23 kg; Height 5 ll1 ft. 3 in. ; Pain 9/10; 14:58 Body Mass Index 23.91 (61.23 kg, 160.02 cm) ll1 14:58 Pain Scale: Adult ll1 MDM: 14:54 Patient medically screened. sb4 15:19 Differential diagnosis: sprain, strain, hernia. sb4 16:04 Data reviewed: vital signs, nurses notes, radiologic studies, and as a result, I will sb4 discharge patient. Counseling: I had a detailed discussion with the patient and/or guardian regarding the historical points, exam findings, and any diagnostic results supporting the discharge/admit diagnosis, radiology results, to return to the emergency department if symptoms worsen or persist or if there are any questions or concerns that arise at home. 12/01 15:06 Order name: Pelvis Wo Cont CT: right groin pain; Complete Time: 15:44 sb4 12/01 15:19 Order name: Head Brain Wo Cont CT; Complete Time: 15:44 sb4 Administered Medications: 16:25 Drug: Ketorolac IM 30 mg IM once Route: IM; Site: right deltoid; as6 16:34 Follow up: Response: No adverse reaction as6 Disposition Summary: 12/01/23 16:04 Discharge Ordered Notes: Location: Home sb4 Problem: new sb4 Symptoms: are unchanged sb4 Condition: Stable sb4 Diagnosis - right iliopsoas bursitis sb4 Followup: sb4 - With: Tadeo Means MD - When: 2 - 3 days - Reason: Recheck today's complaints, Re-evaluation by your physician Discharge Instructions: - Discharge Summary Sheet sb4 - Bursitis, [id number] sb4 - Muscle Strain, [id number] sb4 - Hip Exercises-SportsMed sb4 Forms: - Medication Reconciliation Form sb4 - Thank You Letter sb4 - Antibiotic Education sb4 - Prescription Opioid Use sb4 - Patient Portal Instructions sb4 - Leadership Thank You Letter sb4 Signatures: Dispatcher [employer] Sia Irby, RN RN ll1 Lenin Hale, RN RN as6 Lissa Townsend, PALynne PALynne sb4 Corrections: (The following items were deleted from the chart) 15:20 15:13 patient states that her right inner groin started hurting her about 4 days ago. sb4 she does not believe that she injured it. denies any bulging in the area, erythema, . sb4
--- NOTE | 2023-12-01 16:05 | ER ---
Nurse's Notes [facility] Name: Kasia Auguste Age: 83 yrs Sex: Female : 1940 Arrival Date: 12/01/2023 Time: 14:40 Bed 10 Private MD: Diagnosis: right iliopsoas bursitis Presentation: 12/01 14:58 Chief complaint: Patient states: R inner groin pain for 4 days with certain ll1 movements/steps. No trauma or falls. Coronavirus screen: Client denies travel out of the [place] in the last 14 days. At this time, the client does not indicate any symptoms associated with coronavirus-19. Ebola Screen: Patient denies travel to an Ebola-affected area in the 21 days before illness onset. Initial Sepsis Screen: Does the patient meet any 2 criteria? No. Patient's initial sepsis screen is negative. Does the patient have a suspected source of infection? No. Patient's initial sepsis screen is negative. Risk Assessment: Do you want to hurt yourself or someone else? Patient reports no desire to harm self or others. Onset of symptoms was November 28, 2023. 14:58 Method Of Arrival: Wheelchair ll1 14:58 Acuity: DARRICK 3 ll1 Triage Assessment: 15:00 General: Appears uncomfortable, Behavior is calm, cooperative, appropriate for age. ll1 Pain: Complains of pain in R groin Quality of pain is described as aching, sharp. Musculoskeletal: Circulation, motion, and sensation intact. Capillary refill < 3 seconds. Historical: - Allergies: 15:00 TETRACYCLINES; ll1 15:00 Augmentin; ll1 15:00 KAELA INHIBITORS; ll1 15:00 Bactrim; ll1 15:00 Potassium Chloride; ll1 - PMHx: 15:00 Arthritis; Asthma; CVA; Glaucoma; hiatal hernia; HTN; Osteoporosis; ll1 - PSHx: 15:00 Appendectomy; Cholecystectomy; hysterectomy; sigmoid colon removed; ll1 - Immunization history:: Adult Immunizations up to date. - Social history:: Smoking status: Patient denies any tobacco usage or history of. Screenin:33 [facility] ED Fall Risk Assessment (Adult) Score/Fall Risk Level 0 - 2 = Low Risk. Abuse as6 screen: Denies threats or abuse. Denies injuries from another. Nutritional screening: No deficits noted. Tuberculosis screening: No symptoms or risk factors identified. Assessment: 16:32 General: Appears in no apparent distress. Behavior is calm, cooperative. Pain: as6 Complains of pain in pelvis. Neuro: Level of Consciousness is awake, alert, obeys commands, Oriented to person, place, time, situation. Respiratory: Respiratory effort is even, unlabored, Respiratory pattern is regular, symmetrical. Musculoskeletal: Reports pain in pelvis. Vital Signs: 14:58 BP 101 / 65; Pulse 67; Resp 17; Temp 97.8; Pulse Ox 100% ; Weight 61.23 kg; Height 5 ll1 ft. 3 in. ; Pain 9/10; 14:58 Body Mass Index 23.91 (61.23 kg, 160.02 cm) ll1 14:58 Pain Scale: Adult ll1 ED Course: 14:48 Patient arrived in ED. kj1 14:52 L[facility] Townsend [facility] sb4 14:52 Vish Nunez MD is Attending Physician. sb4 15:00 Triage completed. ll1 15:00 Arm band placed on. ll1 15:[address]: right groin pain In Process Unspecified. EDMS 15:26 Head Brain Wo Cont CT In Process Unspecified. EDMS 16:04 Tadeo Means MD is Referral Physician. sb4 16:33 Bed in low position. Call light in reach. Provided Education on: follow up. as6 16:34 No provider procedures requiring assistance completed. Patient did not have IV access as6 during this emergency room visit. Administered Medications: 16:25 Drug: Ketorolac IM 30 mg IM once Route: IM; Site: right deltoid; as6 16:34 Follow up: Response: No adverse reaction as6 Medication: 16:33 VIS not applicable for this client. as6 Outcome: 16:04 Discharge ordered by MD. sb4 16:33 Discharged to home via wheelchair, with family, as6 16:33 Condition: stable 16:33 Discharge instructions given to patient, Instructed on discharge instructions, follow up and referral plans. Demonstrated understanding of instructions, follow-up care, 16:34 Patient left the ED. as6 Signatures: Dispatcher [employer] EDMS Shellie Dc kj1 Sia Mcclelland RN RN ll1 Lenin Hale RN RN as6 Lissa Townsend PAChristianaC PAChristianaC sb4 Corrections: (The following items were deleted from the chart) 15:01 14:58 Pulse 67bpm; Resp 17bpm; Pulse Ox 100%; Temp 97.8F; 61.23 kg; Height 5 ft. 3 in.; ll1 BMI: 23.9; Pain 9/10, Adult; ll1
[2023-12-01 16:54] VITALS: BP 101/65; TEMP 97.8; O2SAT 100
== END ==
LOC: ER 14:40
DX: M70.71 Other bursitis of hip, right hip (principal); Z88.1 Allergy status to other antibiotic agents; Z88.8 Allergy status to other drugs, medicaments and biological substances
CPT/HCPCS: 70450; 72192; 96372; 99284

== ENCOUNTER 2024-02-11 11:42 | Inpatient (IN) | payer OTHER ==
--- OUTSIDE RECORDS SUMMARY | 2024-02-11 11:46 | XMS REPORT | Continuity of Care Document ---
Author Name Unknown Address [address] [place] [address] thconnect Address [address] [place] [address] [address] [place] [address] Care Team Providers Care Automobile Upholsterer Apprentice Name Role Phone [email or web address]_S Attending Clinician Joi barbosa [email or web address]_S Admitting Clinician Joi barbosa Payers Payer Name Policy Type Policy Number Effective Date Expirati on Date Source [facility] (MEDICARE REPLACEMENT/ADVANTAGE - PPO) [id number] Problems Condition Name Condition Details Condition Category Status Onset Date Resolution Date Last Treatment Date Treating Clinician Comments Source 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, 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, 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 Specimen Problem Active 3-29 00:00: 00 [facility] Genuine stress incontinen ce Genuine Stress Incontinen ce Problem Active 5-31 00:00: 00 [facility] Overactive bladder Overactive Bladder Problem Active 2-22 00:00: 00 [facility] Lichen sclerosus Lichen Sclerosus Problem Active 2-22 00:00: 00 [facility] 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 Problem Active 2020-10 2-01 00:00: 00 [facility] Atrophic vaginitis Atrophic Vaginitis Problem Active 2020-10 0-07 00:00: 00 [facility] Urinary incontinen ce Urinary Incontinen ce Problem Active 2020-10 0-07 00:00: 00 [facility] 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 Problem Active 2020-10 0-07 00:00: 00 [facility] Allergies, Adverse Reactions, Alerts Allergy Name Allergy Type Status Severity Reaction(s) Onset Date Inactive Date Treating Clinician Comments Source Tetracyc line Allergy to substanc e Active Rash [facility] KAELA INHIBITO RS Allergy to substanc e Active [facility] Amoxicil tone-pot Clavulan ate Allergy to substanc e Active [facility] Bactrim Ds Allergy to substanc e Active [facility] POTASSIU M Allergy to substanc e Active [facility] Medications Ordered Medication Name Filled Medication Name Start Date Stop Date Current Medication? Ordering Clinician Indication Dosage Frequency Signature (SIG) Comments Components Source clobetasol 0.05 % topical cream 1 APPLICATION EXTERNALLY TWICE A DAY FOR 30 DAYS, THEN 1 TIME DAILY AFTER THAT FOR 90 DAYS. 90 DAY(S); 90 clobetasol 0.05 % topical cream 1 APPLICATION EXTERNALLY TWICE A DAY FOR 30 DAYS, THEN 1 TIME DAILY AFTER THAT FOR 90 DAYS. 90 DAY(S); 90 No clobetasol 0.05 % topical cream 1 APPLICATIO N EXTERNALLY TWICE A DAY FOR 30 DAYS, THEN 1 TIME DAILY AFTER THAT FOR 90 DAYS. 90 DAY(S); 90 [facility] estradiol 0.01% (0.1 mg/gram) vaginal cream (0.5 gm) as directed with applicator; three times a week; 90 days estradiol 0.01% (0.1 mg/gram) vaginal cream (0.5 gm) as directed with applicator; three times a week; 90 days No estradiol 0.01% (0.1 mg/gram) vaginal cream (0.5 gm) as directed with applicator ; three times a week; 90 days [facility] triamcinolo ne acetonide 0.5 % topical ointment APPLY A THIN LAYER TO THE AFFECTED AREA(S) BY TOPICAL ROUTE 2 TIMES A WEEK. triamcinolo ne acetonide 0.5 % topical ointment APPLY A THIN LAYER TO THE AFFECTED AREA(S) BY TOPICAL ROUTE 2 TIMES A WEEK. No triamcinol one acetonide 0.5 % topical ointment APPLY A THIN LAYER TO THE AFFECTED AREA(S) BY TOPICAL ROUTE 2 TIMES A WEEK. [facility] Vital Signs Vital Name Observation Time Observation Value Comments S ource BP Diastolic 2024-01-13 00:00:00 79 mm[Hg] [facility] Body Weight 2024-01-13 00:00:00 134 [lb_av] [facility] BP Systolic 2024-01-13 00:00:00 149 mm[Hg] [facility] Height 2024-01-13 00:00:00 63 [in_i] [facility] BMI (Body Mass Index) 2024-01-13 00:00:00 23.7 kg/m2 [facility] Procedures Procedure Date / Time Performed Performing Clinicia n Source Sigmoid Colectomy 2013-06-06 00:00:00 [facility] Breast Biopsy 2013-03-17 00:00:00 [facility] Procedure on Eye 2011-04-16 00:00:00 [facility] Left Cataract Extraction 2008-01-16 00:00:00 [facility] Cholecystectomy (Gallbladder) 1992-10-17 00:00:00 [facility] Total Abdominal Hysterectomy 1980-10-17 00:00:00 [facility] Appendectomy 1972-10-17 00:00:00 [facility] Plan of Care Planned Activity Planned Date Details Comments Source Future Appointment 2025-01-18 13:00:00 Cici zamudio, Marisa Reyes; [address], [place] [phone] [facility] Medical Encounters Start Date/Time End Date/Time Encounter Type Admission Type Attending [facility] Care Facility Care Department Encounter ID Source 2024-01-13 00:00:00 2024-01-13 00:00:00 Cici Khan MD: Marisa Reyes, [address], [place] [phone] , Ph. GC_GCBZW_Ka diyala_S Formerly [facility] - GC_GCBZW_[facility]* [id number] [facility] 2024-01-04 00:00:00 2024-01-04 00:00:00 Outpatient GC_GCBZW_Ka diyala_S [facility] [id number] [facility] 2024-01-02 00:00:00 2024-01-02 00:00:00 Outpatient GC_GCBZW_Ka diyala_S [facility] [id number] [facility] 2023-12-08 00:00:00 2023-12-08 00:00:00 Outpatient GC_GCBZW_Ka diyala_S [facility] [id number] [facility] 2023-08-16 00:00:00 2023-08-16 00:00:00 [facility] [id number] [facility] 2023-08-15 00:00:00 2023-08-15 00:00:00 Outpatient GC_GCBZW_Ka diyala_S [facility] [id number] [facility]
--- NOTE | 2024-02-11 12:22 | RAD REPORT ---
EXAM DESCRIPTION: CT - Ct Stroke Brain Wo Cont - 02/11/2024 12:14 pm CLINICAL HISTORY: STROKE ALERT COMPARISON: Head Brain Wo Cont dated 12/01/2023; Ct Stroke Brain Wo Cont dated 07/07/2021 TECHNIQUE: All CT scans are performed using dose optimization technique as appropriate and may inclu de automated exposure control or mA/KV adjustment according to patient size. FINDINGS: No intracranial hemorrhage, hydrocephalus or extra-axial fluid collection.Mild generalized brain atrophy is present with mild periventricular and deep white matter chronic microvascular ische ling changes.No areas of brain edema or evidence of midline shift. Chronic left maxillary sinusitis. The paranasal sinuses and mastoids are otherwise clear. The calvari um is intact. Vertebral atherosclerosis. IMPRESSION: No acute intracranial abnormality. The findings were discussed with Dr. Ferris in the ER On 02/11/2024 at 12:15 p.m. by telephone.
[2024-02-11 12:39] LABS: Absolute Lymphocytes (CBC) 0.5 K/uL (0.7-4.9); Absolute Monocytes 0.7 K/uL (0.1-1.3); Absolute Neutrophil 3.5 K/uL (1.8-8.0); Basophils % 0.7 % (0-1.3); Hematocrit 36.1 % (36.0-45.0); Hemoglobin 11.8 g/dL (12.0-15.0); Lymphocytes % 10.8 % (15.3-44.8); MCH 28.3 pg (27.0-35.0); MCHC 32.7 g/dL (32.0-36.0); MCV 86.6 fL (80-100); MPV 8.7 fL (7.6-11.3); Monocytes % 15.2 % (3.3-12.3); Neutrophils % 72.3 % (41.7-73.7); Platelets 200 thou/uL (152-406); RBC Red Blood Cell Count 4.17 M/uL (3.86-4.86); Red Cell Distribution Width 15.6 % (12.1-15.2)
[2024-02-11 12:46] LABS: PT Prothrombin Time 11.7 SECONDS (9.5-12.5); PTT, Activated Partial Thromb 32.1 SECONDS (24.3-36.9); Protime INR 1.07
--- NOTE | 2024-02-11 12:47 | RAD REPORT ---
EXAM DESCRIPTION: RAD - Chest Single View - 02/11/2024 12:43 pm CLINICAL HISTORY: weakness Chest pain. COMPARISON: Chest Single View dated 07/07/2021 FINDINGS: Portable technique limits examination quality. The lungs are grossly clear. The heart is normal in size. No displaced fractures.Aortic atheroscleros is. IMPRESSION: No acute intrathoracic process suspected.
[2024-02-11 12:56] LABS: Anion Gap 7.7 mEq/L (5.0-15.0); Potassium 3.7 mEq/L (3.5-5.1); Troponin High Sensitivity 12.1 pg/mL (<58.9)
--- NOTE | 2024-02-11 13:28 | ER ---
Nurse's Notes [facility] Name: Kasia Auguste Age: 84 yrs Sex: Female : 1940 Arrival Date: 02/11/2024 Time: 11:42 Bed 5 Private MD: Diagnosis: Cerebral infarction, unspecified;Weakness Presentation: 02/10 10:48 Chief complaint: Right sided weakness upon waking today, not feeling well and dizziness hb x 2-3 days. Coronavirus screen: At this time, the client does not indicate any symptoms associated with coronavirus-19. Ebola Screen: No symptoms or risks identified at this time. An acute neurological deficit is present. The charge nurse has been notified. The patient has been moved to a treatment area. Initial Sepsis Screen: Does the patient meet any 2 criteria? No. Patient's initial sepsis screen is negative. Does the patient have a suspected source of infection? No. Patient's initial sepsis screen is negative. Risk Assessment: Do you want to hurt yourself or someone else? Patient reports no desire to harm self or others. Onset of symptoms is unknown. 10:48 Method Of Arrival: Wheelchair hb 10:48 Acuity: DARRICK 2 hb 12:18 Pre-hospital glucose is not applicable to this patient. aa5 Triage Assessment: 12:18 The onset of the patients symptoms was more than six hours ago. aa5 12:20 The onset of the patients symptoms was more than six hours ago. General: Appears in no hb apparent distress. Behavior is calm, cooperative. Pain: Denies pain. Neuro: Level of Consciousness is awake, alert, obeys commands, Oriented to person, place, time, situation, Supportability Engineer are weak on left Weakness in left hand(s) arm(s) leg(s) Gait is unsteady, Speech is normal, Facial symmetry appears normal, Pupils are PERRLA, Numbness in right hand and right arm Reports dizziness, numbness weakness. Cardiovascular: Patient's skin is warm and dry. Respiratory: Respiratory effort is even, unlabored, Respiratory pattern is regular, symmetrical. Stroke Activation: Symptom onset > 6 hours Physician: Stroke Attending; Name: ; Notified At: ; Arrived At: Physician: Chief Stroke Resident; Name: ; Notified At: ; Arrived At: Physician: Stroke Resident; Name: ; Notified At: ; Arrived At: Physician: ED Attending; Name: ; Notified At: ; Arrived At: Physician: ED Resident; Name: ; Notified At: ; Arrived At: Historical: - Allergies: 12:02 KAELA INHIBITORS; aa5 12:02 Augmentin; aa5 12:02 Bactrim; aa5 12:02 Potassium Chloride; aa5 12:02 TETRACYCLINES; aa5 - Home Meds: 12:30 Norvasc 10 mg Oral tablet 1 tab daily [Active]; Cozaar 100 mg Oral tablet 1 tab daily nj1 [Active]; hydralazine 50 mg Oral tablet 1 tab 2 times per day [Active]; amlodipine 5 mg tablet 1 tab daily [Active]; metoprolol tartrate 25 mg Oral tablet 2 tabs 2 times per day [Active]; Plavix 75 mg Oral tab 1 tab once daily [Active]; Advair Diskus 250-50 mcg/dose inhalation Blister, With Inhalation Device 1 inhalation 2 times per day [Active]; Proair Digihaler 90 mcg/actuation inhalation Aerosol Powder, Breath Activ.with Sensor 2 puff every 4 hours [Active]; rabeprazole 20 mg oral tablet, delayed release (enteric coated) 1 tab daily [Active]; Prolia 60 mg/mL subcutaneous Syringe every 6 months [Active]; Azopt 1 % ophthalmic (eye) drops, suspension 1 drop 2 times a day [Active]; Tirosint 25 mcg oral capsule 1 cap daily [Active]; tizanidine 4 mg oral tablet 1 tabs once daily at bedtime [Active]; escitalopram oxalate 10 mg oral tablet 1 tab daily [Active]; folic acid 1 mg Oral tablet 1 tab daily [Active]; hydroxyzine HCl 25 mg Oral tablet [Active]; Vitamin D3 25 mcg (1,000 unit) oral tablet 1 tab daily [Active]; vitamin B complex oral tablet 1 tab daily [Active]; Align oral daily [Active]; Miralax 17 gram Oral powder in packet [Active]; - PMHx: 12:02 Arthritis; Asthma; CVA; Glaucoma; hiatal hernia; HTN; Osteoporosis; aa5 12:30 Gastric reflux; Hypercholesterolemia; nj1 - PSHx: 12:02 Appendectomy; Cholecystectomy; hysterectomy; sigmoid colon removed; aa5 12:30 Vulvectomy; Multiple eye surgeries; nj1 - Family history:: not pertinent. - Hospitalizations: : No recent hospitalization is reported. Screenin:[address] [facility] ED Fall Risk Assessment (Adult) History of falling in the last 3 months, aa5 including since admission No falls in past 3 months (0 pts) Confusion or Disorientation No (0 pts) Intoxicated or Sedated No (0 pts) Impaired Gait Yes (1 pt) Mobility Assist Device Used Yes (1 pt) Altered Elimination No (0 pt) Score/Fall Risk Level 0 - 2 = Low Risk Oriented to surroundings, Maintained a safe environment, Educated pt \T\ family on fall prevention, incl call for assistance when getting out of bed. Abuse screen: Denies threats or abuse. Nutritional screening: No deficits noted. Tuberculosis screening: No symptoms or risk factors identified. Assessment: 12:00 Reassessment: Pt to CT via wheelchair, accompanied by DILAN Still.. aa5 12:18 Reassessment: Pt back from CT, placed in bed, warm blankets provided for comfort. . aa5 12:18 General: Appears comfortable, Behavior is calm, cooperative. Pain: Denies pain. Neuro: aa5 Level of Consciousness is awake, alert, obeys commands, Oriented to person, place, time, situation, Appropriate for age Supportability Engineer are weak on right Weakness in right arm(s) leg(s) Speech is normal, Facial symmetry appears normal, Reports numbness since increased right sided weakness today and dizziness. weakness. Cardiovascular: Heart tones S1 S2 present Edema is absent. Rhythm is sinus rhythm. Respiratory: Airway is patent Respiratory effort is even, unlabored, Respiratory pattern is regular, symmetrical. GI: No signs and/or symptoms were reported involving the gastrointestinal system. : No signs and/or symptoms were reported regarding the genitourinary system. EENT: No signs and/or symptoms were reported regarding the EENT system. Derm: Skin is pink, warm \T\ dry. multiple bruising noted to arnulfo arms and legs, pt reports she takes Plavix. Musculoskeletal: Range of motion: intact in all extremities. Injury Description: Denies any recent falls. 12:18 VAN Scoring: Arm Drift: Minor drift Visual Disturbance: No visual disturbance noted. aa5 Aphasia: No aphasia noted. Neglect: No neglect noted. TNKase (Tenecteplase) Screening: Contraindications: Patient reports onset of signs and symptoms of stroke greater than 6 hours ago: Yes. 12:30 Reassessment: Patient is alert, oriented x 3, equal unlabored respirations, skin aa5 warm/dry/pink. 13:55 Daisy Swallow Protocol Brief Cognitive Screen What is your name? Normal, Where are you aa5 right now? Normal, What year is it? Normal. Oral Mechanism Examination Facial Symmetry: Normal, Motion: Normal, Lip Closure: Normal, Oral Mechanism Result: Normal. 3 oz Water Swallow Challenge: Pt able to drink all water without stopping, coughing, choking or throat clearing: Yes Result: PASS. 13:55 Reassessment: Patient is alert, oriented x 3, equal unlabored respirations, skin aa5 warm/dry/pink. 14:22 Reassessment: Patient is alert, oriented x 3, equal unlabored respirations, skin aa5 warm/dry/pink. assisted with bedside commode, pt tolerated well. Placed back onto bed. . 14:48 Reassessment: Patient is alert, oriented x 3, equal unlabored respirations, skin aa5 warm/dry/pink. Vital Signs: 12:18 BP 144 / 68; Pulse 73; Resp 18 S; Temp 97.8(TE); Pulse Ox 100% on R/A; aa5 13:00 BP 123 / 64; Pulse 64; Resp 17 S; Pulse Ox 95% on R/A; aa5 14:05 BP 132 / 68; Pulse 65; Resp 18 S; Temp 97.8(TE); Pulse Ox 98% on R/A; aa5 NIH Stroke Scale Scores: 12:18 NIHSS Score: 2 aa5 14:20 NIHSS Score: 2 aa5 ED Course: 11:49 Patient arrived in ED. mg5 11:50 Anthony Ferris MD is Attending Physician. rn 12:01 Jaelyn Bustillos, DILAN is Primary Nurse. aa5 12:16 CT Stroke Brain w/o Contrast In Process Unspecified. EDMS 12:20 Triage completed. hb 12:20 Arm band placed on. hb 12:20 Patient has correct armband on for positive identification. Placed in gown. Bed in low aa5 position. Call light in reach. Side rails up X2. Adult w/ patient. Client placed on continuous cardiac and pulse oximetry monitoring. NIBP monitoring applied. monitoring analyst on. Pulse ox on. NIBP on. 12:20 EKG done, by ED staff, reviewed by Anthony Ferris MD. aa5 12:23 Initial lab(s) drawn, by ED staff, sent to lab. Inserted saline lock: 22 gauge in left aa5 antecubital area, using aseptic technique. Blood collected. 12:44 Stroke CXR 1 View In Process Unspecified. EDMS 13:24 CT Head Angio In Process Unspecified. EDMS 13:24 CT Neck Angio In Process Unspecified. EDMS 13:25 Tadeo Means MD is Hospitalizing Provider. rn 14:07 No provider procedures requiring assistance completed. Patient admitted, IV remains in aa5 place. Administered Medications: 14:00 Drug: Aspirin PO 325 mg PO once Route: PO; aa5 14:48 Follow up: Response: No adverse reaction aa5 14:00 Drug: foLIC Acid IVPB 1 mg IVPB once Route: IVPB; Site: left antecubital; aa5 14:10 Follow up: Response: No adverse reaction aa5 Medication: 14:00 VIS not applicable for this client. aa5 Point of Care Testing: Blood Glucose: 12:23 Blood Glucose: 138 mg/dL; aa5 Ranges: Outcome: 13:27 Decision to Hospitalize by Provider. rn 14:07 Admitted to Tele Other Report faxed to admitting nurse, Room 223. aa5 14:48 Admitted to Tele accompanied by nurse, family with patient, via wheelchair, room aa5 changed to Room 220, with chart, 14:48 Condition: stable 14:48 Instructed on the need for admit, Demonstrated understanding of instructions, 14:50 Patient left the ED. aa5 NIH Stroke Scale - NIH Stroke Score Date: 02/11/2024 Time: 12:18 Total Score = 2 10. Dysarthria (speech clarity - read or repeat words) - 0(Normal) 11. Extinction and Inattention (visual/tactile/auditory/spatial/personal) - 0(No abnormality) 1a. Level of Consciousness (LOC) - 0(Alert) 1b. Level of Consciousness (LOC) (Month \T\ Age) - 0(Both) 1c. LOC Commands (Open \T\ Closes Eyes/Bilingual Manager) - 0(Both) 2. Best Gaze (Lateral Gaze Paresis) - 0(Normal) 3. Visual Field Loss - 0(No visual loss) 4. Facial Palsy - 0(Normal) 5a. Left Arm: Motor (10-second hold) - 0(No drift) 5b. Right Arm: Motor (10-second hold) - 1(Drift) 6a. Left Leg: Motor (5-second hold - always test supine) - 0(No drift) 6b. Right Leg: Motor (5-second hold - always test supine) - 1(Drift) 7. Limb Ataxia (finger/nose \T\ heel/purdy - test with eyes open) - 0(Absent) 8. Sensory Loss (pinprick arms/legs/face) - 0(Normal) 9. Best Language: Aphasia (description/naming/reading) - 0(No aphasia) Initials: aa5 NIH Stroke Scale - NIH Stroke Score Date: 02/11/2024 Time: 14:20 Total Score = 2 10. Dysarthria (speech clarity - read or repeat words) - 0(Normal) 11. Extinction and Inattention (visual/tactile/auditory/spatial/personal) - 0(No abnormality) 1a. Level of Consciousness (LOC) - 0(Alert) 1b. Level of Consciousness (LOC) (Month \T\ Age) - 0(Both) 1c. LOC Commands (Open \T\ Closes Eyes/Bilingual Manager) - 0(Both) 2. Best Gaze (Lateral Gaze Paresis) - 0(Normal) 3. Visual Field Loss - 0(No visual loss) 4. Facial Palsy - 0(Normal) 5a. Left Arm: Motor (10-second hold) - 0(No drift) 5b. Right Arm: Motor (10-second hold) - 1(Drift) 6a. Left Leg: Motor (5-second hold - always test supine) - 0(No drift) 6b. Right Leg: Motor (5-second hold - always test supine) - 1(Drift) 7. Limb Ataxia (finger/nose \T\ heel/purdy - test with eyes open) - 0(Absent) 8. Sensory Loss (pinprick arms/legs/face) - 0(Normal) 9. Best Language: Aphasia (description/naming/reading) - 0(No aphasia) Initials: aa5 Signatures: Dispatcher [employer] EDMS Anthony Ferris MD MD rn Calderon, Audri RN RN aa5 Tessy Yap RN RN Ana Barillas RN RN [facility] Areli Rajan 5 Corrections: (The following items were deleted from the chart) 12:31 10:48 BP 144 / 68; Pulse 73bpm; Resp 18bpm; Spontaneous; Pulse Ox 100% RA; Temp aa5 97.8F Temporal; aa5 12: 10:48 Pre-hospital glucose is not applicable to this patient. aa5 aa5 14:56 14:53 Patient left the ED. aa5 aa5 14:56 14:53 Patient left the ED. aa5 aa5
--- NOTE | 2024-02-11 13:29 | EDPHYS ---
Physician Documentation [facility] Name: Kasia Auguste Age: 84 yrs Sex: Female : 1940 Arrival Date: 02/11/2024 Time: 11:42 Bed 5 Private MD: ED Physician Anthony Ferris HPI: 02/10 12:01 This 84 yrs old Female presents to ER via Unassigned with complaints of Dizziness, rn Weakness - Right Side. 12:01 Patient states has not felt well for 2 days, has been very sleepy and difficult to rn arouse, noticed right arm and leg weakness and heaviness that began this morning, states she believes it was present upon awakening this morning. Denies fall or trauma. No chest pain or abdominal pain. Has had a stroke in the past but this is worse than her residual symptoms which also were right-sided.. 12:09 The patient presents to the emergency department with weakness of the right upper rn extremity, right lower extremity. Onset: The symptoms/episode began/occurred at an unknown time. Associated signs and symptoms: Pertinent negatives: fever, headache, neck stiffness, paresthesias, syncope, blurred vision, double vision, visual field changes, loss of vision. Current symptoms: paralysis or paresis, that is mild. The patient has experienced a previous episode. Historical: - Allergies: 12:02 KAELA INHIBITORS; aa5 12:02 Augmentin; aa5 12:02 Bactrim; aa5 12:02 Potassium Chloride; aa5 12:02 TETRACYCLINES; aa5 - Home Meds: 12:30 Norvasc 10 mg Oral tablet 1 tab daily [Active]; Cozaar 100 mg Oral tablet 1 tab daily nj1 [Active]; hydralazine 50 mg Oral tablet 1 tab 2 times per day [Active]; amlodipine 5 mg tablet 1 tab daily [Active]; metoprolol tartrate 25 mg Oral tablet 2 tabs 2 times per day [Active]; Plavix 75 mg Oral tab 1 tab once daily [Active]; Advair Diskus 250-50 mcg/dose inhalation Blister, With Inhalation Device 1 inhalation 2 times per day [Active]; Proair Digihaler 90 mcg/actuation inhalation Aerosol Powder, Breath Activ.with Sensor 2 puff every 4 hours [Active]; rabeprazole 20 mg oral tablet, delayed release (enteric coated) 1 tab daily [Active]; Prolia 60 mg/mL subcutaneous Syringe every 6 months [Active]; Azopt 1 % ophthalmic (eye) drops, suspension 1 drop 2 times a day [Active]; Tirosint 25 mcg oral capsule 1 cap daily [Active]; tizanidine 4 mg oral tablet 1 tabs once daily at bedtime [Active]; escitalopram oxalate 10 mg oral tablet 1 tab daily [Active]; folic acid 1 mg Oral tablet 1 tab daily [Active]; hydroxyzine HCl 25 mg Oral tablet [Active]; Vitamin D3 25 mcg (1,000 unit) oral tablet 1 tab daily [Active]; vitamin B complex oral tablet 1 tab daily [Active]; Align oral daily [Active]; Miralax 17 gram Oral powder in packet [Active]; - PMHx: 12:02 Arthritis; Asthma; CVA; Glaucoma; hiatal hernia; HTN; Osteoporosis; aa5 12:30 Gastric reflux; Hypercholesterolemia; nj1 - PSHx: 12:02 Appendectomy; Cholecystectomy; hysterectomy; sigmoid colon removed; aa5 12:30 Vulvectomy; Multiple eye surgeries; nj1 - Family history:: not pertinent. - Hospitalizations: : No recent hospitalization is reported. ROS: 12:09 Constitutional: Negative for fever, chills, and weight loss, Neck: Negative for injury, rn pain, and swelling, Cardiovascular: Negative for chest pain, palpitations, and edema, Respiratory: Negative for shortness of breath, cough, wheezing, and pleuritic chest pain, Abdomen/GI: Negative for abdominal pain, nausea, vomiting, diarrhea, and constipation, Back: Negative for injury and pain, MS/Extremity: Negative for injury and deformity, Skin: Negative for injury, rash, and discoloration, Neuro: Positive for weakness in the right arm and right leg. Negative for headache. Negative for numbness or tingling. Negative for seizure. Exam: 12:09 Constitutional: This is a well developed, well nourished patient who is awake, alert, rn slow to answer questions but answers appropriately Head/Face: Normocephalic, atraumatic. Cardiovascular: Regular rate and rhythm. No pulse deficits. Respiratory: No increased work of breathing, no retractions or nasal flaring. Abdomen/GI: Soft, non-tender MS/ Extremity: Pulses equal, no cyanosis. Neuro: Awake and alert, GCS 15, oriented to person, place, time, and situation. Cranial nerves II-XII grossly intact. Motor strength 4/5 in right arm and right leg with positive drift. Sensory grossly intact. Cerebellar exam normal. 12:24 ECG was reviewed by the Attending Physician. rn Vital Signs: 12:18 BP 144 / 68; Pulse 73; Resp 18 S; Temp 97.8(TE); Pulse Ox 100% on R/A; aa5 13:00 BP 123 / 64; Pulse 64; Resp 17 S; Pulse Ox 95% on R/A; aa5 14:05 BP 132 / 68; Pulse 65; Resp 18 S; Temp 97.8(TE); Pulse Ox 98% on R/A; aa5 NIH Stroke Scale Scores: 12:18 NIHSS Score: 2 aa5 14:20 NIHSS Score: 2 aa5 MDM: 11:50 Patient medically screened. rn 12:16 ED course: Patient not TNK candidate due to last known normal being outside of window. rn Patient states has not felt normal for the last couple of days but also woke up with the right-sided symptoms this morning.. 12:17 ED course: CT head without acute findings per Dr. Dutton. rn 13:24 Data reviewed: vital signs, nurses notes, lab test result(s), EKG, radiologic studies, rn CT scan, and as a result, I will admit patient. Consideration of Admission/Observation Patient was admitted/placed on observation. Escalation of care including admission/observation considered. Management of patient was discussed with the following: Primary Care Provider: Dr Means, will admit patient for stroke workup.. Counseling: I had a detailed discussion with the patient and/or guardian regarding the historical points, exam findings, and any diagnostic results supporting the discharge/admit diagnosis, lab results, radiology results, the need for further work-up and treatment in the hospital. 02/10 12:01 Order name: Basic Metabolic Panel; Complete Time: 12:58 rn 02/10 12:01 Order name: CBC with Diff; Complete Time: 12:58 rn 02/10 12:01 Order name: High Sensitivity Troponin; Complete Time: 12:58 rn 02/10 12:01 Order name: Protime (+inr); Complete Time: 12:58 rn 02/10 12:01 Order name: Ptt, Activated; Complete Time: 12:58 rn 02/10 12:39 Order name: Glucose, Ancillary Testing; Complete Time: 12:58 EDMS 02/10 13:47 Order name: Urinalysis w/ reflexes; Complete Time: 14:29 rn 02/10 12:01 Order name: CT Head Angio; Complete Time: 13:41 rn 02/10 12:01 Order name: CT Neck Angio; Complete Time: 13:41 rn 02/10 12:01 Order name: CT Stroke Brain w/o Contrast; Complete Time: 12:23 rn 02/10 12:01 Order name: Stroke CXR 1 View; Complete Time: 12:58 rn 02/10 13:47 Order name: CONS Physician Consult EDMA 02/10 12:01 Order name: Accucheck; Complete Time: 12:29 rn 02/10 12:01 Order name: Cardiac monitoring; Complete Time: 12:29 rn 02/10 12:01 Order name: EKG - Nurse/Tech; Complete Time: 12:29 rn 02/10 12:01 Order name: IV Saline Lock; Complete Time: 12: rn 02/10 12:01 Order name: Labs collected and sent; Complete Time: 12:29 rn 02/10 12:01 Order name: NPO; Complete Time: 12:29 rn 02/10 12:01 Order name: O2 Per Protocol; Complete Time: 12:29 rn 02/10 12:01 Order name: O2 Sat Monitoring; Complete Time: 12:29 rn 02/10 12:01 Order name: Stroke Swallow Screen; Complete Time: 14:13 rn EC:24 Rate is 74 beats/min. Rhythm is regular. Left axis deviation noted. QRS is positive in rn lead I and negative in lead aVF. IA interval is normal. QRS interval is normal. QT interval is normal. No Q waves. T waves are Normal. No ST changes noted. Clinical impression: NSR w/ Non-specific ST/T Changes. Interpreted by me. Reviewed by me. Administered Medications: 14:00 Drug: Aspirin PO 325 mg PO once Route: PO; aa5 14:48 Follow up: Response: No adverse reaction aa5 14:00 Drug: foLIC Acid IVPB 1 mg IVPB once Route: IVPB; Site: left antecubital; aa5 14:10 Follow up: Response: No adverse reaction aa5 Point of Care Testing: Blood Glucose: 12:23 Blood Glucose: 138 mg/dL; aa5 Ranges: Critical Glucose Levels:Adult <50 mg/dl or >400 mg/dl <40 mg/dl or >180 mg/dl Disposition Summary: 02/11/24 13:27 Hospitalization Ordered Notes: Hospitalization Status: Inpatient Admission rn Provider: Tadeo Means rn Location: Telemetry/[facility] (Inpatient) rn Condition: Stable rn Problem: new rn Symptoms: have improved rn Bed/Room Type: Standard rn Room Assignment: 220(02/11/24 14:30) eb Diagnosis - Cerebral infarction, unspecified rn - Weakness rn Forms: - Medication Reconciliation Form rn - SBAR form rn - Leadership Thank You Letter rn NIH Stroke Scale - NIH Stroke Score Date: 02/11/2024 Time: 12:18 Total Score = 2 10. Dysarthria (speech clarity - read or repeat words) - 0(Normal) 11. Extinction and Inattention (visual/tactile/auditory/spatial/personal) - 0(No abnormality) 1a. Level of Consciousness (LOC) - 0(Alert) 1b. Level of Consciousness (LOC) (Month \T\ Age) - 0(Both) 1c. LOC Commands (Open \T\ Closes Eyes/Mend Worker) - 0(Both) 2. Best Gaze (Lateral Gaze Paresis) - 0(Normal) 3. Visual Field Loss - 0(No visual loss) 4. Facial Palsy - 0(Normal) 5a. Left Arm: Motor (10-second hold) - 0(No drift) 5b. Right Arm: Motor (10-second hold) - 1(Drift) 6a. Left Leg: Motor (5-second hold - always test supine) - 0(No drift) 6b. Right Leg: Motor (5-second hold - always test supine) - 1(Drift) 7. Limb Ataxia (finger/nose \T\ heel/purdy - test with eyes open) - 0(Absent) 8. Sensory Loss (pinprick arms/legs/face) - 0(Normal) 9. Best Language: Aphasia (description/naming/reading) - 0(No aphasia) Initials: aa5 NIH Stroke Scale - NIH Stroke Score Date: 02/11/2024 Time: 14:20 Total Score = 2 10. Dysarthria (speech clarity - read or repeat words) - 0(Normal) 11. Extinction and Inattention (visual/tactile/auditory/spatial/personal) - 0(No abnormality) 1a. Level of Consciousness (LOC) - 0(Alert) 1b. Level of Consciousness (LOC) (Month \T\ Age) - 0(Both) 1c. LOC Commands (Open \T\ Closes Eyes/Mend Worker) - 0(Both) 2. Best Gaze (Lateral Gaze Paresis) - 0(Normal) 3. Visual Field Loss - 0(No visual loss) 4. Facial Palsy - 0(Normal) 5a. Left Arm: Motor (10-second hold) - 0(No drift) 5b. Right Arm: Motor (10-second hold) - 1(Drift) 6a. Left Leg: Motor (5-second hold - always test supine) - 0(No drift) 6b. Right Leg: Motor (5-second hold - always test supine) - 1(Drift) 7. Limb Ataxia (finger/nose \T\ heel/purdy - test with eyes open) - 0(Absent) 8. Sensory Loss (pinprick arms/legs/face) - 0(Normal) 9. Best Language: Aphasia (description/naming/reading) - 0(No aphasia) Initials: aa5 Signatures: Dispatcher [employer] EDMS Anthony Ferris MD MD rn Calderon, Audri RN RN aa5 Echo Campos Norma, RN RN nj1 Corrections: (The following items were deleted from the chart) 12:02 12:02 BASIC METABOLIC PANEL+C.LAB.BRZ ordered. EDMS EDMS 12: 12:02 CBC+H.LAB.BRZ ordered. EDMS EDMS 12:02 12:02 Troponin High Sensitivity+C.LAB.BRZ ordered. EDMS EDMS 12:02 12:02 PROTIME (+INR)+COAG.LAB.BRZ ordered. EDMS EDMS 12:02 12:02 PTT, ACTIVATED+COAG.LAB.BRZ ordered. EDMS EDMS 12:02 12:02 Head Angio+CT.RAD.BRZ ordered. EDMS EDMS 12:02 12:02 Neck Angio+CT.RAD.BRZ ordered. EDMS EDMS 12:02 12:02 CT-STROKE BRAIN W/O CONTRAST+CT.RAD.BRZ ordered. EDMS EDMS 12:02 12:02 Chest Single View+RAD.RAD.BRZ ordered. EDMS EDMS 13:53 13:27 rn eb 14:30 13:53 223 eb eb
--- NOTE | 2024-02-11 13:33 | RAD REPORT ---
EXAM DESCRIPTION: CT - Head angio - 02/11/2024 1:22 pm CLINICAL HISTORY: WEAKNESS Headache, drowsiness, CVA symptomology COMPARISON: Ct Stroke Brain Wo Cont dated 02/11/2024; Head Brain Wo Cont dated 12/01/2023 TECHNIQUE: CT angiography of the head was performed with MIPs. All CT scans are performed using dose optimization technique as appropriate and may include automated exposure control or mA/KV adjustment according to patient size. FINDINGS: No evidence of large vessel occlusion. No evidence of aneurysm is detected. No flow-limiti ng stenosis or vascular malformation identified. Antegrade flow is seen in the vertebral arteries. The vertebral arteries are codominant. The visualized dural venous sinuses are patent. IMPRESSION: No significant flow abnormality is detected.
--- NOTE | 2024-02-11 13:40 | RAD REPORT ---
EXAM DESCRIPTION: CT - Neck Angio - 02/11/2024 1:22 pm CLINICAL HISTORY: weakness Headache, drowsiness, CVA symptomology COMPARISON: Thoracic Spine W/o Cont dated 02/07/2022 TECHNIQUE: CT angiography of the neck vessels was performed with MIPs. All CT scans are performed using dose optimization technique as appropriate and may include automated exposure control or mA/KV adjustment according to patient size. FINDINGS: A left aortic arch is identified with normal three vessel configuration of the great vesse ls. No significant flow abnormality is seen of the common carotid bilaterally. Mild hard plaquing is seen in both carotid bulbs. This does not result in any significant stenosis bi laterally. Normal flow is seen within both vertebral arteries. IMPRESSION: Mild hard plaquing in both carotid bulbs does not result in significant flow alteration or carotid stenosis. NASCET criteria used. Mild 0-49% stenosis Moderate 50-69% stenosis Severe 70-99% stenosis
[2024-02-11] MEDS ORDERED: ASPIRIN 325 MG TAB ONE (13:53)
[2024-02-11] MEDS ORDERED: FOLIC ACID 5 MG/ML VIAL ONE (13:54)
[2024-02-11 14:23] LABS: Sqamous Epithelial <5 /HPF (None Seen); Urine Bacteria None Seen /HPF (<20); Urine Bilirubin NEGATIVE (Negative); Urine Blood Negative (Negative); Urine Clarity Clear (Clear); Urine Color Light-Yellow (Yellow); Urine Culture Reflex Order NOT NEEDED; Urine Glucose NEGATIVE (Negative); Urine Ketones NEGATIVE (Negative); Urine Microscopic Reflex YN ORDER UMIC; Urine Mucus Slight /HPF (None Seen); Urine Nitrite NEGATIVE (Negative); Urine Protein NEGATIVE (Negative); Urine RBC <5 /HPF (None Seen); Urine Urobilinogen Normal (Normal); Urine WBC <5 /HPF (<5); Urine pH 7.5 (5.0-7.0)
[2024-02-11 15:29] VITALS: BMI 22.4
[2024-02-11] MEDS ORDERED: POLYETHYL GLY 3350 17 GM/DOSE PO PRN (17:11)
[2024-02-11] MEDS ORDERED: ALBUTEROL INHALER 200 PUFF/6.7 GM IH PRN (17:11)
[2024-02-11] MEDS ORDERED: hydrOXYzine HCL 25 MG TAB PO PRN (17:11)
[2024-02-11] MEDS: DULERA 200/5 (MOMETASONE/FORMOTEROL) INHALER IH SCH (19:00)
[2024-02-11] MEDS: BRINZOLAMIDE OPTH SCH (21:00)
[2024-02-11] MEDS: HYDRALAZINE HCL 25 MG TABLET PO SCH (21:11)
[2024-02-11] MEDS: TIZANIDINE 4 MG TABLET PO SCH (21:11)
[2024-02-11] MEDS: ROSUVASTATIN 10 MG TAB PO SCH (21:11)
[2024-02-11] MEDS: METOPROLOL TAR 25 MG TAB PO SCH (21:12)
[2024-02-11] MEDS: AMLODIPINE 5 MG TAB PO SCH (21:12)
[2024-02-12] MEDS: VITAMIN D 1000 UNIT TAB PO SCH (08:02)
[2024-02-12] MEDS: ASPIRIN EC 81 MG TAB PO SCH (08:02)
[2024-02-12] MEDS: PANTOPRAZOLE 40MG TABLET PO SCH (08:02)
[2024-02-12] MEDS: ESCITALOPRAM 20 MG TAB PO SCH (08:03)
[2024-02-12] MEDS: LEVOTHYROXINE SOD 0.025 MG TAB PO SCH (08:04)
[2024-02-12] MEDS: LOSARTAN POTASSIUM 50 MG TABLET PO SCH (08:04)
[2024-02-12] MEDS: ENOXAPARIN 40 MG/0.4 ML SQ SCH (09:00)
--- NOTE | 2024-02-12 12:35 | RAD REPORT ---
EXAM DESCRIPTION: USCarotid Artery Bilateral02/12/2024 11:59 am CLINICAL HISTORY: cva COMPARISON: February 11, 2024 CT angiogram neck FINDINGS: The velocity of the right internal carotid artery equals 88 cm/sec. The right ICA/CCA rati o normal The velocity of the left internal carotid artery equals 90 cm/sec. The left ICA/CCA ratio normal Mild plaque is present within the carotid arteries. The vertebral arteries demonstrate antegrade flow IMPRESSION: Mild plaque within the carotid arteries without evidence of a hemodynamically significan t stenosis NASCET criteria used. Mild 0-49% stenosis Moderate 50-69% stenosis Severe 70-99% stenosis
--- NOTE | 2024-02-12 19:12 | HP ---
Date of Admission: 02/11/2024 Chief Complaint: Heaviness and weakness of the right side of body. History Of Present Illness: This is an 84-year-old female patient with prior history of stroke, who has persistent slight weakness of the right upper and right lower extremity, came into emergency room with 2 days history of slight worsening of this weakness of the right upper and right lower extremit y along with feeling right side of her body heavier than before. Denies any headache or visual compl aints. Denies any fall or head injury. No fever, chills, nausea, vomiting, constipation, or diarrhe a. After she was evaluated in the emergency room yesterday, she was admitted to the hospital. When I called her back, she was not available and I left a message for her to come to emergency room and s ubsequently she did and after she was evaluated I was contacted requesting admission to the hospital. Details of all the testing done in the emergency room yesterday, was reviewed and discussed with ER physician. This morning when I saw her, she denied any new complaints. The patient reports that sera baldwin takes her medications regularly. Allergies: TETRACYCLINE CAUSING RASH. KAELA INHIBITOR CAUSING COUGH. ADHESIVE TAPE MAKES HER SKIN PE EL OFF AND AUGMENTIN CAUSES DIARRHEA AND BLEEDING. Medications: ProAir inhaler 2 puffs every 4 hours as needed, aspirin 81 mg daily, clopidogrel 75 mg daily, amlodipine 5 mg daily in morning, escitalopram 10 mg daily, fluticasone nasal spray 1 spray ea ch nostril 2 times a day as needed for allergies, Advair 1 puff 2 times a day, folic acid 1 mg daily, hydralazine 50 mg 2 times a day. Hydroxyzine 25 mg 3 times a day as needed for itching, levothyroxi ne 25 mcg daily, Claritin 10 mg daily, losartan 100 mg daily, magnesium oxide 400 mg daily, meloxicam 15 mg daily as needed for back pain, rabeprazole 20 mg daily, rosuvastatin 20 mg daily, and tizanidi ne 4 mg daily at bedtime, vitamin B complex 1 tablet daily. Review of Systems: TYPE INSPECTOR: As mentioned above. ENT: Complaining of some fullness and pressure type of feeling in the right ear. All other systems reviewed and negative. Past Medical History: Stroke in August 2014 causing residual right-sided weakness, COVID-19 infect ion in October 2021, glaucoma, allergic rhinitis, hypothyroidism, impaired fasting glucose, mild pers istent asthma, hypertension, hyperlipidemia, gastroesophageal reflux disease, diverticulosis, leukocy topenia, anemia, osteopenia. Past Surgical History: Breast biopsy, which was benign; cholecystectomy; appendectomy; partial resec tion of colon due to diverticulosis in 2012; and hysterectomy. Family History: Father , had cerebral aneurysm and hypertension. Mother , had uterine cance r. Brother has diabetes. Social History: Negative for smoking and alcohol use. Physical Examination: Vital Signs: This morning, temperature 97.5, pulse 71, respiratory rate 18, blood pressure 124/65, o xygen saturation 97% on room air. Height 5 feet 4 inches, weight 130 pounds. General: Awake, alert, oriented, not in distress. HEENT: Head atraumatic, normocephalic. Conjunctivae nonerythematous. Sclerae white. Mouth, no thr ush or edema noted. Ears/Nose, no mass, lesion, discharge noted. Neck: Supple. No JVD, lymph nodes, bruit, thyromegaly noted. Lungs: Bilateral good equal air entry. Clear to auscultation. No rhonchi. No rales. Heart: Normal heart sounds, no murmur or gallop. Abdomen: Soft, bowel sounds normal. No guarding, rigidity, tenderness, mass, hepatosplenomegaly, dis tention, or bruit noted. Extremities: No leg edema. No calf tenderness. Skin: No rash, ulcer, cellulitis. Lymphatics: No lymph node enlargement in neck, supraclavicular, infraclavicular region. Neuro: Power in right upper and right lower extremities is 4/5 and left upper and left lower extremi ties 5/5. Speech is normal. No facial asymmetry. Touch sensation intact. Chest: Unremarkable. External Genitalia: Deferred. Rectal: Deferred. Laboratory Data: CAT scan of the head was negative for any acute intracranial changes. WBC count ye was 4.9, hemoglobin 11.8, platelets 200. Sodium 139, potassium 3.7, chloride 106, bicarb 29, BUN 16, creatinine 0.99, glucose 141. Troponin 12.1. Urinalysis negative. Impression: 1.Stroke with right-sided hemiparesis. 2.Anemia, unspecified. 3.Hypertension. 4.Hyperlipidemia. 5.Hypothyroidism. 6.Allergic rhinitis. 7.Diverticulosis. 8.Gastroesophageal reflux disease. Plan: We will go ahead and admit the patient to hospital for further evaluation and management of th is problem. The patient is appropriate for inpatient and [facility] For stroke, we will consult neurologist, Dr. Dejesus. Consult Physical Therapy, Occupational Th erapy, and speech therapies. We will get MRI of brain without contrast done tomorrow. Get an echo w ith Doppler tomorrow as well as carotid Doppler. Continue aspirin 81 mg 2 tablets daily. We will st art DVT prophylaxis using Lovenox starting this morning. For hypertension, we will continue her anti hypertensive medication, monitor blood pressure if necessary, adjust medication as it becomes necessa ry. For hyperlipidemia, we will continue her statin therapy and no need for further intervention and we will get a fasting lipid profile on her tomorrow. For her gastroesophageal reflux disease, we wi ll continue her proton pump inhibitor therapy as per order and no need for any further intervention o n it. For hypothyroidism, we will also continue levothyroxine as per order. Details and plan of luis e atment discussed with her. She is also complaining of impaired hearing in both ears and she is inter ested in getting hearing aid and I have discussed with her and informed her that on outpatient basis when she comes to office next time, she should request a referral to see Ear, Nose, and Throat specia list for further evaluation. Today, I did examine her ear and her both ear canals and tympanic membr ane are normal. There was no evidence of any infection or wax buildup. Total Time Spent: minutes. BALTAZAR/MODL Voice ID: [id number]
[2024-02-12] MEDS: ACETAMINOPHEN 500 MG TAB PO PRN (22:28)
[2024-02-13 06:31] LABS: Absolute Eosinophils 0.1 K/uL (0-0.5); Absolute Lymphocytes (CBC) 1.1 K/uL (0.7-4.9); Absolute Monocytes 0.6 K/uL (0.1-1.3); Absolute Neutrophil 2.3 K/uL (1.8-8.0); Basophils % 0.8 % (0-1.3); Eosinophils % 1.5 % (0-4.4); Hematocrit 35.7 % (36.0-45.0); Hemoglobin 12.1 g/dL (12.0-15.0); Lymphocytes % 27.3 % (15.3-44.8); MCH 29.1 pg (27.0-35.0); MCHC 33.7 g/dL (32.0-36.0); MCV 86.3 fL (80-100); MPV 8.5 fL (7.6-11.3); Monocytes % 15.3 % (3.3-12.3); Neutrophils % 55.1 % (41.7-73.7); Platelets 201 thou/uL (152-406); RBC Red Blood Cell Count 4.14 M/uL (3.86-4.86); Red Cell Distribution Width 15.5 % (12.1-15.2)
[2024-02-13 06:42] LABS: Albumin 3.8 g/dL (3.4-5.0); Anion Gap 7.3 mEq/L (5.0-15.0); Bilirubin Total 0.5 mg/dL (0.2-1.0); Globulin 3.7 g/dL (2.3-3.5); Magnesium 2.5 mg/dL (1.6-2.4); Potassium 3.3 mEq/L (3.5-5.1); Protein, Total 7.5 g/dL (6.4-8.2)
--- NOTE | 2024-02-13 11:13 | RAD REPORT ---
EXAM DESCRIPTION: MRI - Brain Wo Cont - 02/13/2024 11:03 am CLINICAL HISTORY: stroke Headache, drowsiness, CVA symptomology COMPARISON: Head angio dated 02/11/2024; Brain W/Wo Cont dated 07/07/2021 TECHNIQUE: Multi-sequence, multiplanar MR imaging of the brain was performed without contrast. FINDINGS: No intracranial hemorrhage, hydrocephalus or extra-axial fluid collections.Moderate conflu ent T2/FLAIR hyperintensity in the periventricular and deep white matter is present compatible with c hronic microvascular ischemic changes. No edema or shift of midline structures. No findings to suspec t brain mass. DWI is negative for acute CVA. Midline structures are normally formed. Moderate opacification of the left maxillary antrum. IMPRESSION: Negative for acute CVA or other acute intracranial process.
[2024-02-13] MEDS ORDERED: ALBUTEROL INHALER 200 PUFF/6.7 GM IH PRN (12:21)
--- NOTE | 2024-02-13 13:00 | EKG ---
Test Date: 2024-02-11 Test Time: 12:22:11 [employer]: [employer]TIE MEASUREMENT RESULTS: Intervals: Rate: 74 GA: 152 QRSD: 80 QT: 424 QTc: 470 [place]: P: 57 GA: 152 QRS: -42 T: 48 INTERPRETIVE STATEMENTS: Normal sinus rhythm Biatrial enlargement Left axis deviation Abnormal ECG No previous ECG available for comparison Electronically Signed On 02-13-24 12:55:45 CDT by Gavino Wahl
--- NOTE | 2024-02-13 21:45 | CON ---
Reason For Consultation: Consultation called because of possible stroke. History Of Present Illness: Ms. Auguste is an 84-year-old patient with reported history of stroke produ cing right-sided weakness, from which she says she has recovered very well, although there is some mi ld "heaviness" to the right arm and some slight decrease in sensation and problems with the right leg . Despite the stroke, which is a few years ago, she had recovered well, was ambulating well, but did have about 2 days she felt of slight worsening right upper and lower extremity feeling heavier or we vito than usual. At [facility], her head CT scan showed no acute ischemic hemorrhagic garcia e. Brain MRI done earlier today showed chronic small vessel ischemic disease. No mention of a chron ic stroke or acute stroke. CT angiogram of the neck showed mild hard plaque in both carotid arteries that does not result in significant hemodynamic stenosis. Her head CT angiogram showed no flow abno rmalities detected in the intracranial vessels. Carotid artery ultrasound showed mild plaque in the carotid arteries without evidence of hemodynamically significant stenosis. Her blood work showed mil dly low white blood cell count, essentially unremarkable hemoglobin, hematocrit, platelets normal. I NR normal at 1.07. Chemistries after hydration, potassium did go to 3.3, creatinine normal at 0.8. Liver function studies normal. Magnesium slightly elevated at 2.5. Total cholesterol 131, LDL diogenes sterol 41, HDL cholesterol 69. The cholesterol-HDL ratio 1.9. Urinalysis, pH 7.5, otherwise unremar kable. Past Medical History: Asthma, arthritis, glaucoma, antral hernia, hypertension, osteoporosis, report ed stroke, dyslipidemia, GE reflux. Past Surgical History: Appendectomy, cholecystectomy, hysterectomy, sigmoid colon removal, vulvectom y, multiple eye surgeries. Allergies: KAELA INHIBITOR, AUGMENTIN, BACTRIM, POTASSIUM CHLORIDE, TETRACYCLINE. Family History: Noncontributory. Social History: No alcohol, tobacco, or IV drug use. Current Medications: Tylenol 500 mg every 6 hours as needed, Ventolin inhaler 2 puffs every 4 hours as needed, Norvasc 5 mg daily, aspirin 162 mg daily, vitamin D 1000 units daily, Lovenox 40 mg subcut aneously daily, Lexapro 10 mg daily, Apresoline 50 mg twice daily, Atarax 25 mg as needed daily, Synt hroid 0.025 mg daily, Cozaar 100 mg daily, Lopressor 25 mg twice daily, Protonix 40 mg daily, Zanafle x 4 mg at bedtime, Crestor 20 mg daily. Physical Examination: Vital Signs: Blood pressure 173/78, pulse 66, respiratory rate 16, temperature 98.3, oxygen saturati on 98%. General: Ms. Auguste is sitting beside the bed. She was able to stand and begin to ambulate. HEENT: She is normocephalic, atraumatic. Sclerae anicteric. Oropharynx is pink and moist. Neck: Supple. Chest: Clear. Heart: Regular. Extremities: Show no clubbing, cyanosis, or edema. Neuro: In terms of cranial nerves, no focal deficits there. Right upper extremity, very subtle weak ness, around perhaps 5-. Sensation appears slightly different, decreased on the right compared to th e left upper extremity. Lower extremity strength, right appears very close to the left, perhaps 5- s trength on the right compared to the left. Slightly increased reflex in the right compared to the le ft. Ambulation, she has good stride and arm swing. No significant deficits. [facility], found to be at baseline, independent and ambulated 300 feet with a Rollator. No los s of balance. She did see Speech and Occupational Therapy and did very well. Did not require any ad ditional assistance. Bedside swallow study, she had no issues, no further treatment. Regular swallo wing on thin liquids. Assessment: Ms. Auguste is an 84-year-old patient with reported history of right-sided stroke, although MRI of the brain is negative for any acute or chronic stroke. Our vessel evaluation in the neck and brain show no significant obstruction and cardiac evaluation unremarkable. Blood work shows no infe ction. Urinalysis shows no evidence of urinary tract infection. It is unclear where the patient's s ymptoms can be mapped to as the brain does not show any acute findings. Neurologically, she has very subtle change in the right compared to the left side and she is ambulating well, eating well, and do ing all of her activities of daily living independently. Plan: She should be discharged home. May do outpatient physical therapy if she is able to be transp orted. She should continue current medications as per Dr. Means, her primary care physician, may foll ow up in clinic within the month at Dr. Dejesus's office. HEBERT/ANA Voice ID: [id number] Report ID: [id number]
[2024-02-14] MEDS: LEVOTHYROXINE SOD 0.025 MG TAB PO SCH (05:40)
--- NOTE | 2024-02-14 07:13 | ECHO ---
HEIGHT: 5 ft 4 in WEIGHT: 130 lb 12.8 oz DATE OF STUDY: 02/13/[address]: Mo Means MD 2-DIMENSIONAL: YES M.MODE: YES DOPPLER: YES COLOR FLOW: YES TDS: PORTABLE: YES DEFINITY: BUBBLE STUDY: DIAGNOSIS: STROKE CARDIAC HISTORY: CATHERIZATION: SURGERY: PROSTHETIC VALVE: PACEMAKER: MEASUREMENTS (cm) DIASTOLIC (NORMALS) SYSTOLIC (NORMALS) IVSd 1.1 (0.6-1.2) LA Diam 3.8 (1.9-4.0) LVEF 71% LVIDd 3.3 (3.5-5.7) LVIDs 2.0 (2.0-3.5) %FS 39% LVPWd 1.3 (0.6-1.2) Ao Diam 2.7 (2.0-3.7) 2 DIMENSIONAL ASSESSMENT: RIGHT ATRIUM: NORMAL LEFT ATRIUM: NORMAL RIGHT VENTRICLE: NORMAL LEFT VENTRICLE: NORMAL TRICUSPID VALVE: MILD TRICUSPID REGURGITATION MITRAL VALVE: MITRAL ANNULAR CALCIFICATION PULMONIC VALVE: NORMAL AORTIC VALVE: MILD AORTIC INSUFFICIENCY PERICARDIAL EFFUSION: NONE AORTIC ROOT: NORMAL LEFT VENTRICULAR WALL MOTION: NORMAL DOPPLER/COLOR FLOW: SEE BELOW COMMENTS: 1. NORMAL LEFT VENTRICULAR EJECTION FRACTION 60-65% WITH NORMAL WALL MOTION 2. MODERATE MITRAL ANNULAR CALCIFICATION 3. MILD TRICUSPID REGURGITATION 4. MILD AORTIC INSUFFICIENCY TECHNOLOGIST: AGNES SMART
[2024-02-14 07:41] VITALS: O2SAT 98
[2024-02-14 09:04] VITALS: BP 162/78; TEMP 97.2
--- NOTE | 2024-02-15 20:29 | DS ---
Date of Discharge: 02/14/2024 Disposition: Discharged to go home. Physical Examination: HEENT: Unremarkable. Lungs: Clear to auscultation. Heart: Sounds normal. Abdomen: Soft. Bowel sounds normal. No guarding, rigidity, tenderness, distention. Extremities: No leg edema. Neuro: Very minimal right-sided weakness with power grade 4+ over 5 in upper and lower extremity, un changed from before. Laboratory Data: Upon admission on 02/11/2024, WBC 4.9, hemoglobin 11.8, platelets 200, and last CBC on 02/13/2024 shows WBC 4.1, hemoglobin 12.1, platelets 201. Her chemistry on 02/11/2024, sodium 13 9, potassium 3.7, chloride 106, bicarb 29, BUN 16, creatinine 0.99, glucose 141, TSH 12.1, and on , sodium 140, potassium 3.3, chloride 108, bicarb 28, BUN 24, creatinine 0.80, glucose 94. Li reta function tests unremarkable. LDL cholesterol 41. Carotid Doppler shows mild plaquing in carotid arteries without evidence of hemodynamically significant stenosis. Her CT scan of the head was nega tive for any acute changes. CT angiogram of neck and head was negative for any significant stenotic lesion. MRI of the brain did not show any acute intracranial changes. Hospital Course: This is an 84-year-old female patient, who was admitted to the hospital with heavin ess and weakness of the right side of her body. Please see dictated H and P for more information. T he patient takes aspirin and Plavix at home due to prior history of stroke, which has caused slight r esidual weakness of the right upper and right lower extremity, but for about 2 days, she has felt lik e heaviness on the right side of the body with feeling as if her right arm and right leg were more we vito than usual. With that, she came into emergency room. After she was evaluated, she was admitted to the hospital. Initial workup in the emergency room was unremarkable and there was no sign of any infection. Neurology consultation was requested from Dr. Dejesus. At home, she takes aspirin and Plavix. Her workup done in the hospital did not reveal any evidence of another stroke and Dr. Howard ll did not have any other recommendation besides continuing her current medical management. The bubba ent will benefit from home health and home physical therapy. She does not have transportation to [facility] for outpatient therapy, so Social Service was consulted and requested to make arrangements for home health care and home physical therapy. Final Diagnoses: 1.Stroke with right-sided hemiparesis. 2.Anemia, unspecified. 3.Hypertension. 4.Hyperlipidemia. 5.Hypothyroidism. 6.Allergic rhinitis. 7.Diverticulosis. 8.Gastroesophageal reflux disease. Discharge Medications And Instructions: 1.Continue all prior home medications. 2.Follow up at my office next week and follow up with Dr. Dejesus in 1 month. Total time spent today minutes. BALTAZAR/MODL Voice ID: [id number] Report ID: [id number]
== END 2024-02-14 11:29 | disposition home health service (06) | DRG 57 ==
LOC: ER 11:42 → ERHOLD 13:42 → 2ND 14:06
PROVIDERS: ADMIT Internal Medicine; ATTEND Internal Medicine
DX: I69.351 Hemiplegia and hemiparesis following cerebral infarction affecting right dominant side (principal); I10 Essential (primary) hypertension; E78.00 Pure hypercholesterolemia, unspecified; K21.9 Gastro-esophageal reflux disease without esophagitis; M81.0 Age-related osteoporosis without current pathological fracture; D64.9 Anemia, unspecified; J30.9 Allergic rhinitis, unspecified; K57.90 Diverticulosis of intestine, part unspecified, without perforation or abscess without bleeding; R29.702 NIHSS score 2; R73.01 Impaired fasting glucose; Z88.1 Allergy status to other antibiotic agents; Z86.16 Personal history of COVID-19; Z79.02 Long term (current) use of antithrombotics/antiplatelets; Z90.49 Acquired absence of other specified parts of digestive tract; Z90.710 Acquired absence of both cervix and uterus; Z79.899 Other long term (current) drug therapy; Z91.048 Other nonmedicinal substance allergy status; Z79.890 Hormone replacement therapy
CPT/HCPCS: 36415; 70450; 70496; 70498; 70551; 71045; 80048; 80053; 80061; 81001; 82947; 83735; 84484; 85025; 85610; 85730; 92610; 93005; 93306; 93880; 96374; 97116; 97161; 97165; 97530; 99285; J1650; J3535; Q9967